=== PATIENT | male | born 1950 | race Caucasian/White ===

== ENCOUNTER 2019-09-09 17:02 | Emergency (ER) | payer MEDICARE, OTHER, SELFPAY ==
[2019-09-09 17:05] VITALS: BP 172/86; PULSE 88; RESP 16; O2SAT 97
[2019-09-09 17:11] VITALS: BP 172/86; PULSE 94; RESP 16; TEMP 38.1; O2SAT 100; BMI 35.9
[2019-09-09 17:30] VITALS: BP 167/73; PULSE 94; O2SAT 97
[2019-09-09] MEDS: SODIUM CHLORIDE 0.9% 1,000 ML 500 ML IV (17:31)
[2019-09-09 17:33] LABS: Add Manual Diff / Slide Review NO; Basophils Absolute Auto 0 /uL (0-100); Basophils Percent Auto 0.5 % (0-2); Eosinophils Absolute Auto 0 /uL (0-450); Eosinophils Percent Auto 0.1 % (2-4); Hematocrit 50.2 % (41-53); Hemoglobin 17.2 g/dL (13.5-17.5); Lymphocytes Absolute Auto 300 /uL (1100-4500); Lymphocytes Percent Auto 4.1 % (25-40); Mean Corpuscular HGB Conc 34.3 % (30-36); Mean Corpuscular Hemoglobin 31.7 PG (26-34); Mean Corpuscular Volume 92.7 fL (80-100); Monocytes Absolute Auto 200 /uL (0-900); Neutrophils Absolute Auto 6500 /uL (1500-7000); Neutrophils Percent Auto 92.3 % (50-75); Platelet Count 106 X10^3/uL (150-400); Red Blood Cell Count 5.42 X10^6/uL (4.5-5.9); Red Cell Distribution Width 14.1 % (11.6-14.8)
[2019-09-09 17:43] LABS: Lipase 40 U/L (23-300)
--- NOTE | 2019-09-09 17:47 | ED.NAVMDI ---
HPI - Nausea/Vomiting/Diarrhea <Timmy BRADFORD Fernandes - Last Filed: 09/09/19 19:43> General Chief complaint: Nausea/Vomiting/Diarrhea Stated complaint: vomiting and diarrhea all day Time Seen by Provider: 09/09/19 17:12 Source: patient Mode of arrival: Ambulatory Limitations: no limitations History of Present Illness HPI Narrative: This is a pleasant 68-year-old male, nonsmoker, who presents to ED with nausea, vomiting x1, 5-6 episodes of nonbloody but odorous diarrhea which started this morning. Patient reports he is not feeling well, denies fever or abdominal pain. Patient states he has been taking Amoxillinc twice a day for cellulitis on lower limbs and needs to be this medication forever. Patient reports small area of medial aspect above right ankle and denies pain, warmth, drainage, swelling. He has been using Hibiclens as needed once to twice a week as needed and uses good, gentle mode stridor on affected area. Patient denies chest pain, dyspnea, dizziness with standing from sitting but rather dizzy while he was sitting on a chair. The patient denies myalgia or arthralgia. Patient states has been able to hydrate himself with 4-5 bottles of 16 oz water. Patient reports had too much of deviled eggs 2-3 days ago and ate out at [employer] yesterday. Patient reports he has been having belching with sulfa smell like boiled eggs. The patient denies recent foreign travel. Related Data Home Medications Medication Instructions Recorded Confirmed AMLODIPINE BESYLATE (NORVASC) 10 mg PO QDAY #0 11/19/10 ASPIRIN CHEW - 81 mg PO Q DAY #0 11/19/10 (ASPIRIN) Benazepril Hydrochloride (Lotensin) 20 mg PO BID #0 11/19/10 CARVEDILOL (Coreg) 25 mg PO BID #0 11/19/10 MULTIVITAMIN (Multivitamin 1 tab PO Q DAY #0 11/19/10 -) [ECHINACEA] #0 04/01/11 [GLUCOSAMINE] 1,000 mg PO BID #0 04/01/11 [SALMON OIL CAPS] 1,000 PO Q DAY #0 04/01/11 furosemide [Lasix] 20 mg PO QDAY #0 07/06/16 Previous Rx's Medication Instructions Recorded sulfacetamide sodium [Bleph-10] 15 ml OP Q4HWA 5 Days #0 11/04/17 ondansetron 4 mg PO BID-TID PRN #7 tab 09/09/19 Allergies Allergy/AdvReac Type Severity Reaction Status Date / Time No Known Drug Allergies Allergy Verified 09/09/19 17:13 Review of Systems <BRADFORD Noyola - Last Filed: 09/09/19 19:43> Review of Systems Narrative: General: Denies fever, chills, fatigue, malaise, sweats. HEENT: Denies sinus pain, ear pain, sore throat, difficulty swallowing, dizziness. Respiratory: Denies dyspnea, cough, wheezing, hemoptysis, sputum. Cardiovascular: Denies chest pain, palpitations, orthopnea, edema. Gastrointestinal: See HPI : Denies dysuria, frequency, incontinence, hematuria, urinary retention. Musculoskeletal: Denies weakness, joint pain or bony pain. Skin: Denies rash, skin lesions, or other. Neurologic: Denies weakness, headache, numbness, change in speech, confusion, seizures, incoordination. Psychiatric: No concerning psychosocial issues. 12-point review of systems is negative except for those stated above. 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) HTN (hypertension), benign (Chronic) Hyperlipemia, mixed (Chronic) Hypertension (Acute) Obstructive sleep apnea of adult (Chronic ~2007) Osteoarthritis (Chronic) Primary thrombocytopenia (Chronic) Tinnitus (Chronic) Social History (Updated 09/09/19 @ 17:56 by BRADFORD Noyola) marital status: details: Sita, of 45 years, 04/28/2017 number of children: 2 household members: none lives independently: Yes Smoking Status: Never smoker substance use type: marijuana alcohol intake frequency: 3 or more drinks per day Substance Use Type: marijuana Exam <BRADFORD Noyola - Last Filed: 09/09/19 19:43> Narrative Exam Narrative: GEN: Alert, oriented x 3, well appearing and nourished, and in no acute distress. Head: Normal cephalic, atraumatic. No scalp or temporal tenderness, palpable mass or rash. EYES: Pupils are equal, round, and reactive to light and accommodation. Extraocular muscles are intact bilaterally. There is no subconjunctival hemorrhage, exudate and sclera non-icteric. ENT: Bilateral auditory canals and tympanic membranes clear. Hearing grossly intact. Nose without bleeding, purulent discharge or deviation. Facial sinuses nontender to palpate. Mucous membrane moist, no mucosal lesion. Throat without erythema, tonsillar hypertrophy or exudate. Uvula in midline, airway patent. Neck: Trachea in midline. No JVD, non-tender without lymphadenopathy. No masses or thyroid megaly. Supple, non-tender and no meningeal signs. CARDIAC: Normal regular rate and rhythm without murmurs, gallops, or rubs. No chest wall tenderness. No peripheral edema, cyanosis or pallor. Capillary refill is less than 2 seconds. RESPIRATORY: Lungs are clear to auscultate bilaterally. No cough, wheezes, rales, or rhonchi. No stridor, respiratory distress, increase work of breathing, or accessary muscle used. ABD: Abdomen soft, mild tender to palpate in L quadrants. No guarding or rebound tenderness to palpate. Bowel sounds are normal in all 4 quadrants. There is no palpable masses or organomegaly. EXT: Full painless ROM of all extremities with no loss of sensation, strength, effusion or edema. SKIN: Small erythema tests area in medial aspect above ankle in right lower limb without warmth or swelling noted. Warm, dry, normal color for patient. No erythema, lesions or rash over visible areas. BACK: Nontender without deformity or crepitance. No flank tenderness. NEUROLOGICAL: Alert and oriented to place, time and person. Sensation and motor function intact bilaterally. No facial droops, dysphasia. PSYCHIATRIC: Good judgement and reason, without hallucinations, abnormal affect or abnormal behaviors during the examination. Initial Vital Signs Initial Vital Signs: Vital Signs Pulse Rate 88 09/09/19 17:05 Respiratory Rate 16 09/09/19 17:05 Blood Pressure 172/86 H 09/09/19 17:05 Pulse Oximetry 97 09/09/19 17:05 <Kevin Rice, DO - Last Filed: 09/10/19 03:25> Initial Vital Signs Initial Vital Signs: Vital Signs Pulse Rate 88 09/09/19 17:05 Respiratory Rate 16 09/09/19 17:05 Blood Pressure 172/86 H 09/09/19 17:05 Pulse Oximetry 97 09/09/19 17:05 Scores <Timmy CLIFTON FernandesP - Last Filed: 09/09/19 19:43> GCS Rahul coma scale eye opening: Spontaneous Rahul coma scale verbal response: Orientated Rahul coma scale motor response: Obey commands Rahul coma scale total score: 15 Course <[facility] - Last Filed: 09/09/19 19:43> Orders Ordered: Discontinued Medications Sodium Chloride (Normal Saline 0.9%) 1,000 mls @ 1,000 mls/hr IV BOLUS ONE Stop: 09/09/19 18:22 Last Infusion: 09/09/19 18:30 Dose: 150 mls/hr Documented by: Admin: 09/09/19 17:31 Dose: 500 mls/hr Documented by: GRECIA Ondansetron HCl (Zofran) 4 mg IV NOW ONE Stop: 09/09/19 17:24 Last Admin: 09/09/19 17:49 Dose: 4 mg Documented by: GRECIA Vital Signs Vital signs: Vital Signs - 8 hr 09/09/19 19:57 Temperature 99.2 F <Kevin Rice DO - Last Filed: 09/10/19 03:25> Orders Ordered: Discontinued Medications Sodium Chloride (Normal Saline 0.9%) 1,000 mls @ 1,000 mls/hr IV BOLUS ONE Stop: 09/09/19 18:22 Last Infusion: 09/09/19 18:30 Dose: 150 mls/hr Documented by: Admin: 09/09/19 17:31 Dose: 500 mls/hr Documented by: GRECIA Ondansetron HCl (Zofran) 4 mg IV NOW ONE Stop: 09/09/19 17:24 Last Admin: 09/09/19 17:49 Dose: 4 mg Documented by: GRECIA Vital Signs Vital signs: Vital Signs - 8 hr 09/09/19 19:57 Temperature 99.2 F MDM - Nausea/Vomiting/Diarrhea <[facility] - Last Filed: 09/09/19 19:43> Differential Diagnosis Differential diagnosis: Likely food poisoning, gastroenteritis, clostridium difficile infection and other (Viral illness, diverticulitis) Medical Records Attestation: I reviewed the patient's medical records. Lab Data Attestation: I reviewed the patient's lab results. Result diagrams: 09/09/19 17:20 09/09/19 17:20 Labs: Lab Results 09/09/19 09/09/19 09/09/19 Range/Units 17:20 17:20 17:20 WBC 7.0 (4.5-11.0) X10^3/uL RBC 5.42 (4.5-5.9) X10^6/uL Hgb 17.2 (13.5-17.5) g/dL Hct 50.2 (41-53) % MCV 92.7 (80-100) fL MCH 31.7 (26-34) PG MCHC 34.3 (30-36) % RDW 14.1 (11.6-14.8) % Plt Count 106 L (150-400) X10^3/uL Neut % (Auto) 92.3 H (50-75) % Lymph % (Auto) 4.1 L (25-40) % [place] % (Auto) 3.0 (3-14) % Eos % (Auto) 0.1 L (2-4) % Baso % (Auto) 0.5 (0-2) % Neut # (Auto) 6500 (9688-9856) /uL Lymph # (Auto) 300 L (7974-5653) /uL [place] # (Auto) 200 (0-900) /uL Eos # (Auto) 0 (0-450) /uL Baso # (Auto) 0 (0-100) /uL Sodium 141 (137-145) mmol/L Potassium 3.8 (3.4-5.1) mmol/L Chloride 104 (98-107) mmol/L Carbon Dioxide 30 (22-32) mmol/L BUN 22 H (9-20) mg/dL Creatinine 1.00 (0.66-1.25) mg/dL Estimated GFR > 60.0 (>60) mL/min BUN/Creatinine Ratio 22.0 (6-22) Glucose 120 H (80-110) mg/dL Calcium 8.9 (8.4-10.2) mg/dL Total Bilirubin 1.1 (0.2-1.3) mg/dL AST 32 (17-59) IU/L ALT 40 (<50) IU/L Alkaline Phosphatase 64 (38-126) U/L B-Natriuretic Peptide (<100) Total Protein 6.8 (6.3-8.2) g/dL Albumin 4.2 (3.5-5.0) g/dL Globulin 2.6 (1.7-4.1) g/dL Albumin/Globulin Ratio 1.6 (1.0-2.8) Lipase (23-300) U/L Procalcitonin (<0.5) ng/mL Influenza A (RT-PCR) Flu a negative (NEGATIVE) Influenza B (RT-PCR) Flu b negative (NEGATIVE) 09/09/19 09/09/19 09/09/19 Range/Units 17:20 17:34 17:34 WBC (4.5-11.0) X10^3/uL RBC (4.5-5.9) X10^6/uL Hgb (13.5-17.5) g/dL Hct (41-53) % MCV (80-100) fL MCH (26-34) PG MCHC (30-36) % RDW (11.6-14.8) % Plt Count (150-400) X10^3/uL Neut % (Auto) (50-75) % Lymph % (Auto) (25-40) % [place] % (Auto) (3-14) % Eos % (Auto) (2-4) % Baso % (Auto) (0-2) % Neut # (Auto) (6152-2495) /uL Lymph # (Auto) (6276-0795) /uL [place] # (Auto) (0-900) /uL Eos # (Auto) (0-450) /uL Baso # (Auto) (0-100) /uL Sodium (137-145) mmol/L Potassium (3.4-5.1) mmol/L Chloride (98-107) mmol/L Carbon Dioxide (22-32) mmol/L BUN (9-20) mg/dL Creatinine (0.66-1.25) mg/dL Estimated GFR (>60) mL/min BUN/Creatinine Ratio (6-22) Glucose (80-110) mg/dL Calcium (8.4-10.2) mg/dL Total Bilirubin (0.2-1.3) mg/dL AST (17-59) IU/L ALT (<50) IU/L Alkaline Phosphatase (38-126) U/L B-Natriuretic Peptide < 100 (<100) Total Protein (6.3-8.2) g/dL Albumin (3.5-5.0) g/dL Globulin (1.7-4.1) g/dL Albumin/Globulin Ratio (1.0-2.8) Lipase 40 (23-300) U/L Procalcitonin 0.24 (<0.5) ng/mL Influenza A (RT-PCR) (NEGATIVE) Influenza B (RT-PCR) (NEGATIVE) MDM Narrative Medical decision making narrative: This is a 68-year-old male who presents to ED with vomiting times once and several loose stool which started this morning. Patient has a history of cellulitis and he has been on antibiotic medication amoxicillin twice a day dose for prolonged time and will have to continue with this treatment. Although patient denied fever and abdominal pain, patient had temperature of 100.5 upon arrival and very mild tenderness to palpate in left quadrant during physical exam. WBC is unremarkable with elevated of 92.3% and chronically mildly low in platelet counts of 106 today. Lymph count and Eosinophils were decreased. Normal electrolytes, kidney function, with mildly elevated BUN of 22. Flu swab was negative. Patient's symptoms is likely related to viral illness, gastroenteritis, food poisoning from at eggs. Patient's temperature was improved before dc to home. Patient was not able to provide stool sample to test C-Diff of and advised to follow up with PCP when patient is able to collect sample with continued diarrhea, abdominal pain. Also diverticulitis was considered but today's lab test were unremarkable with benign physical exam. Patient was hydrated gently with normal saline due to history of Lasix use. BNP was negative. Procalcitonin was negative. Patient states feeling better prior discharging to home. Return precautions were discussed with the patient and patient advised to hydrate with clear liquid at home. Zofran Rx has been provided for patient. Patient agrees with the treatment plan and verbalized understanding. <Kevin Rice DO - Last Filed: 09/10/19 03:25> Lab Data Labs: Lab Results 09/09/19 09/09/19 09/09/19 Range/Units 17:20 17:20 17:20 WBC 7.0 (4.5-11.0) X10^3/uL RBC 5.42 (4.5-5.9) X10^6/uL Hgb 17.2 (13.5-17.5) g/dL Hct 50.2 (41-53) % MCV 92.7 (80-100) fL MCH 31.7 (26-34) PG MCHC 34.3 (30-36) % RDW 14.1 (11.6-14.8) % Plt Count 106 L (150-400) X10^3/uL Neut % (Auto) 92.3 H (50-75) % Lymph % (Auto) 4.1 L (25-40) % [place] % (Auto) 3.0 (3-14) % Eos % (Auto) 0.1 L (2-4) % Baso % (Auto) 0.5 (0-2) % Neut # (Auto) 6500 (8784-9241) /uL Lymph # (Auto) 300 L (9330-7669) /uL [place] # (Auto) 200 (0-900) /uL Eos # (Auto) 0 (0-450) /uL Baso # (Auto) 0 (0-100) /uL Sodium 141 (137-145) mmol/L Potassium 3.8 (3.4-5.1) mmol/L Chloride 104 (98-107) mmol/L Carbon Dioxide 30 (22-32) mmol/L BUN 22 H (9-20) mg/dL Creatinine 1.00 (0.66-1.25) mg/dL Estimated GFR > 60.0 (>60) mL/min BUN/Creatinine Ratio 22.0 (6-22) Glucose 120 H (80-110) mg/dL Calcium 8.9 (8.4-10.2) mg/dL Total Bilirubin 1.1 (0.2-1.3) mg/dL AST 32 (17-59) IU/L ALT 40 (<50) IU/L Alkaline Phosphatase 64 (38-126) U/L B-Natriuretic Peptide (<100) Total Protein 6.8 (6.3-8.2) g/dL Albumin 4.2 (3.5-5.0) g/dL Globulin 2.6 (1.7-4.1) g/dL Albumin/Globulin Ratio 1.6 (1.0-2.8) Lipase (23-300) U/L Procalcitonin (<0.5) ng/mL Influenza A (RT-PCR) Flu a negative (NEGATIVE) Influenza B (RT-PCR) Flu b negative (NEGATIVE) 09/09/19 09/09/19 09/09/19 Range/Units 17:20 17:34 17:34 WBC (4.5-11.0) X10^3/uL RBC (4.5-5.9) X10^6/uL Hgb (13.5-17.5) g/dL Hct (41-53) % MCV (80-100) fL MCH (26-34) PG MCHC (30-36) % RDW (11.6-14.8) % Plt Count (150-400) X10^3/uL Neut % (Auto) (50-75) % Lymph % (Auto) (25-40) % [place] % (Auto) (3-14) % Eos % (Auto) (2-4) % Baso % (Auto) (0-2) % Neut # (Auto) (7925-9140) /uL Lymph # (Auto) (1460-3231) /uL [place] # (Auto) (0-900) /uL Eos # (Auto) (0-450) /uL Baso # (Auto) (0-100) /uL Sodium (137-145) mmol/L Potassium (3.4-5.1) mmol/L Chloride (98-107) mmol/L Carbon Dioxide (22-32) mmol/L BUN (9-20) mg/dL Creatinine (0.66-1.25) mg/dL Estimated GFR (>60) mL/min BUN/Creatinine Ratio (6-22) Glucose (80-110) mg/dL Calcium (8.4-10.2) mg/dL Total Bilirubin (0.2-1.3) mg/dL AST (17-59) IU/L ALT (<50) IU/L Alkaline Phosphatase (38-126) U/L B-Natriuretic Peptide < 100 (<100) Total Protein (6.3-8.2) g/dL Albumin (3.5-5.0) g/dL Globulin (1.7-4.1) g/dL Albumin/Globulin Ratio (1.0-2.8) Lipase 40 (23-300) U/L Procalcitonin 0.24 (<0.5) ng/mL Influenza A (RT-PCR) (NEGATIVE) Influenza B (RT-PCR) (NEGATIVE) Discharge Plan Departure Patient Disposition: Home Clinical Impression: Nausea vomiting and diarrhea Discharge Date/Time: 09/09/19 19:50 Instructions: Diarrhea, DI for Vomiting -- Adult Activity Restrictions/Additional Instructions: You have been diagnosed with [nausea, vomiting, diarrhea. Today's blood tests were unremarkable but signs of mild dehydration. You were hydrated with IV fluid normal saline and was medicated with IV Zofran for nausea. You're able to tolerate ice chips without vomiting. Your temperature has improved. No significant indications for infection.]. What to do: *Take your medications as directed. Please use Zofran only as needed for nausea or vomiting so you can hydrate after the medication. Please take small sips of clear liquid frequently to hydrate herself. If you continue to have loose stool, please collect stool sample and contact your physician's office for C diff infection testing since you have been on antibiotic medication for a prolonged time. You were unable to provide urine sample and stool sample while in ED to test this today. *Follow up with your primary care provider in 2-3 days, call for an appointment. Let them know you were seen in the ED and that we asked you to be seen in follow up. *Return to ED if you have any new, worsening, or concerning symptoms, such as [abdominal pain, fever, unable to tolerate fluids, chest pain, breathing difficulty, or any acute concerns]. Prescriptions: New ondansetron 4 mg tablet,disintegrating 4 mg PO BID-TID PRN (Reason: nausea and vomiting) Qty: 7 RF: 0 No Action AMLODIPINE BESYLATE (NORVASC) 10 mg PO QDAY Qty: 0 RF: 0 Benazepril Hydrochloride (Lotensin) 20 mg PO BID Qty: 0 RF: 0 CARVEDILOL (Coreg) 25 mg PO BID Qty: 0 RF: 0 MULTIVITAMIN (Multivitamin -) 1 tab PO Q DAY Qty: 0 RF: 0 ASPIRIN CHEW - (ASPIRIN) 81 mg PO Q DAY Qty: 0 RF: 0 [ECHINACEA] Qty: 0 RF: 0 [GLUCOSAMINE] 1,000 mg PO BID Qty: 0 RF: 0 [SALMON OIL CAPS] 1,000 PO Q DAY Qty: 0 RF: 0 furosemide [Lasix] 20 MG tablet 20 mg PO QDAY Qty: 0 RF: 0 sulfacetamide sodium [Bleph-10] 5 ML drops 15 ml OP Q4HWA 5 Days Qty: 0 RF: 0 Referrals: Kamini Velazquez PA-C [Primary Care Provider] -
[2019-09-09] MEDS: ONDANSETRON 4 MG/2 ML INJ IV (17:49)
[2019-09-09 17:51] LABS: Alanine Aminotransferase 40 IU/L (<50); Albumin 4.2 g/dL (3.5-5.0); Albumin Globulin Ratio 1.6 (1.0-2.8); Alkaline Phosphatase 64 U/L (38-126); Aspartate Aminotransferase 32 IU/L (17-59); Bilirubin Total 1.1 mg/dL (0.2-1.3); Blood Urea Nitrogen 22 mg/dL (9-20); Calcium 8.9 mg/dL (8.4-10.2); Carbon Dioxide 30 mmol/L (22-32); Chloride 104 mmol/L (98-107); Estimated Glomerular Filt Rate > 60.0 mL/min (>60); Globulin 2.6 g/dL (1.7-4.1); Glucose 120 mg/dL (80-110); HEMOLYSIS < 15 (0-50); Potassium 3.8 mmol/L (3.4-5.1); Sodium 141 mmol/L (137-145); Total Protein 6.8 g/dL (6.3-8.2)
[2019-09-09 18:00] VITALS: BP 155/92; PULSE 88; RESP 16
[2019-09-09 18:05] LABS: Influenza A - CEPHEID Flu A NEGATIVE (NEGATIVE); Influenza B - CEPHEID Flu B NEGATIVE (NEGATIVE)
[2019-09-09 18:15] LABS: Procalcitonin 0.24 ng/mL (<0.5)
[2019-09-09 18:17] LABS: B Type Natriuretic Peptide < 100 (<100)
[2019-09-09 19:09] VITALS: BP 143/69; PULSE 80; RESP 18; O2SAT 98
[2019-09-09 19:57] VITALS: TEMP 37.3
== END 2019-09-09 19:50 | disposition home or self-care (01) ==
PROVIDERS: Emergency Provider Nurse Practitioner Family; PCP Physician Assistant
DX: R11.2 Nausea with vomiting, unspecified (principal); R19.7 Diarrhea, unspecified
CPT/HCPCS: 80053; 83690; 83880; 84145; 85025; 87502; 96361; 96374; 99284; J2405

== ENCOUNTER → 2019-10-09 19:07 | Outpatient (ROUT) | payer MEDICARE, OTHER, SELFPAY ==
[2019-10-09 19:14] LABS: Add Manual Diff / Slide Review NO; Basophils Absolute Auto 0 /uL (0-100); Basophils Percent Auto 0.6 % (0-2); Eosinophils Absolute Auto 100 /uL (0-450); Eosinophils Percent Auto 2.2 % (2-4); Hematocrit 47.2 % (41-53); Hemoglobin 16.2 g/dL (13.5-17.5); Lymphocytes Absolute Auto 1300 /uL (1100-4500); Lymphocytes Percent Auto 20.6 % (25-40); Mean Corpuscular HGB Conc 34.4 % (30-36); Mean Corpuscular Hemoglobin 31.8 PG (26-34); Mean Corpuscular Volume 92.5 fL (80-100); Monocytes Absolute Auto 400 /uL (0-900); Monocytes Percent Auto 7.3 % (3-14); Neutrophils Absolute Auto 4300 /uL (1500-7000); Neutrophils Percent Auto 69.3 % (50-75); Platelet Count 128 X10^3/uL (150-400); Red Cell Distribution Width 14.1 % (11.6-14.8); White Blood Cell Count 6.2 X10^3/uL (4.5-11.0)
[2019-10-09 19:34] LABS: Alanine Aminotransferase 43 IU/L (<50); Albumin 4.4 g/dL (3.5-5.0); Albumin Globulin Ratio 1.5 (1.0-2.8); Alkaline Phosphatase 83 U/L (38-126); Aspartate Aminotransferase 38 IU/L (17-59); BUN Creatinine Ratio 21.3 (6-22); Bilirubin Total 0.9 mg/dL (0.2-1.3); Blood Urea Nitrogen 17 mg/dL (9-20); Calcium 9.4 mg/dL (8.4-10.2); Carbon Dioxide 29 mmol/L (22-32); Chloride 104 mmol/L (98-107); Cholesterol 151 mg/dL (140-199); Estimated Glomerular Filt Rate > 60.0 mL/min (>60); Globulin 2.9 g/dL (1.7-4.1); Glucose 94 mg/dL (80-110); HDL Cholesterol 48 mg/dL (40-60); HEMOLYSIS 20 (0-50); LDL Cholesterol Calculated 84 mg/dL (<100); Potassium 3.9 mmol/L (3.4-5.1); Sodium 141 mmol/L (137-145); Total Protein 7.3 g/dL (6.3-8.2); Triglycerides 96 mg/dL (35-150)
== END ==
PROVIDERS: PCP Physician Assistant; Visit Provider Physician Assistant
DX: I10 Essential (primary) hypertension (principal); E78.5 Hyperlipidemia, unspecified
CPT/HCPCS: 80053; 80061; 85025

== ENCOUNTER 2021-01-04 12:40 | Emergency (ER) | payer MEDICARE, OTHER, SELFPAY ==
[2021-01-04 16:04] VITALS: BP 150/90; PULSE 62; RESP 16; O2SAT 100
[2021-01-04] MEDS: OFLOXACIN 0.3% OPHTH PREPACK 1 BOTTLE MISC (16:09)
--- NOTE | 2021-01-04 16:10 | PC.NURSE ---
defer to providers assessment
--- NOTE | 2021-01-04 17:35 | ED_ITS ---
HPI - Ear Problem General Chief complaint: Ear Stated complaint: Right Ear Blockage Time Seen by Provider: 01/04/21 14:15 Source: patient Mode of arrival: Ambulatory Limitations: no limitations History of Present Illness HPI Narrative: 70-year-old male former smoker with history of high blood pressure presents with a chief complaint of what he feels as if is a blockage in his right ear. He denies any head injury or difficulty swallowing. He has had no fever or chills nor difficulty swallowing. He denies any recent flights or scuba diving nor upper respiratory illness. He states that he has been buying some drops to put in his ear which have provided little relief. He did use a Q- tip a few days ago and states that maybe he has had some discharge but isn't sure exactly how much or when. MD Complaint: ear pain and decreased hearing Location: right ear Duration: constant Severity: moderate Exacerbating factors: nothing Discharge from ear: yes - bloody and yes - purulent Treatment prior to arrival: eardrops Related Data Home Medications Medication Instructions Recorded Confirmed AMLODIPINE BESYLATE (NORVASC) 10 mg PO QDAY #0 11/19/10 09/13/20 ASPIRIN CHEW - 81 mg PO Q DAY #0 11/19/10 09/13/20 (ASPIRIN) MULTIVITAMIN (Multivitamin 1 tab PO Q DAY #0 11/19/10 -) [ECHINACEA] #0 04/01/11 09/13/20 [GLUCOSAMINE] 1,000 mg PO BID #0 04/01/11 09/13/20 [SALMON OIL CAPS] 1,000 PO Q DAY #0 04/01/11 09/13/20 CARVEDILOL (Coreg) 12.5 mg PO BID #0 09/13/20 carvedilol 25 mg tablet 12.5 mg PO BID tab 09/13/20 09/13/20 lisinopril 20 mg tablet 20 mg PO DAILY 09/13/20 09/13/20 simvastatin 20 mg tablet 10 mg PO QPM tab 09/13/20 09/13/20 Previous Rx's Medication Instructions Recorded sulfacetamide sodium [Bleph-10] 15 ml OP Q4HWA 5 Days #0 11/04/17 Allergies Allergy/AdvReac Type Severity Reaction Status Date / Time No Known Drug Allergies Allergy Verified 01/04/21 12:52 Review of Systems Constitutional Constitutional: Denies chills, Denies fatigue, Denies fever(s), Denies frequent falls, Denies lethargy and Denies weakness Eyes Eyes: Denies change in vision, Denies eye discharge, Denies irritation and Denies loss of vision ENT Ears, Nose, Mouth, and Throat: Denies change in voice, Denies dizziness, Denies neck pain, Denies sore throat and Denies throat swelling Comments: Ear pain, drainage and hearing loss from right ear Cardiovascular Cardiovascular: Denies chest pain, Denies irregular heart rhythm, Denies lightheadedness, Denies palpitations, Denies dyspnea, Denies dyspnea on exertion and Denies orthopnea Respiratory Respiratory: Denies cough, Denies dyspnea, Denies dyspnea on exertion and Denies wheezing Gastrointestinal Gastrointestinal: Denies abdominal pain, Denies change in bowel habits, Denies diarrhea, Denies nausea and Denies vomiting Musculoskeletal Musculoskeletal: Denies neck pain and Denies numbness Integumentary/Breasts Skin/Breast: Denies pruritus, Denies erythema, Denies rash and Denies wounds Neurologic Neurologic: Denies behavioral changes, Denies confusion, Denies dizziness, Denies frequent falls, Denies loss of vision, Denies numbness and Denies weakness Psychiatric Psychiatric: Denies anxiety, Denies behavioral changes, Denies confusion, Denies depression, Denies homicidal ideation and Denies suicidal ideation Endocrine Endocrine: Denies fatigue, Denies flushing and Denies palpitations Hematologic/Lymphatic Hematologic/Lymphatic: Denies easy bruising Allergic/Immunologic Allergic/Immunologic: Denies urticaria, Denies throat swelling and Denies wheezing Patient History Medical History Atopic dermatitis Chronic recurrent streptococcal erysipelas High frequency hearing loss HTN (hypertension), benign Hyperlipemia, mixed Hypertension Obesity (BMI 30-39.9) Obstructive sleep apnea of adult (~2008) Osteoarthritis Primary thrombocytopenia Tinnitus Social History marital status: details: Sita, of 45 years, 04/28/2017 number of children: 2 household members: none lives independently: Yes Smoking Status: Former smoker substance use type: marijuana Smoking Status: Former smoker alcohol intake frequency: 0-2 drinks per day Substance Use Type: marijuana Exam Narrative Exam Narrative: GEN: AOx3 and in mild distress EYES: Pupils are equal, round, and reactive to light and accommodation. Extraoccular muscles are intact bilaterally. There is no subconjunctival hemorrhage or exudate. ENT: Right tympanic membrane obscured by what appears to be cotton, no obvious swelling of the external auditory canal. A soft curette used and removes a portion of the cotton and there is purulence drainage and blood noted. It is becoming tender and I will refer to ENT for completion of this evaluation at their request. Left TM clear, normal landmarks CHEST: Lungs are clear to auscultation bilaterally and free of wheezes, rales, or rhonchi. Heart rate is regular rhythm, there are no murmurs, clicks, rubs, or gallops. There is no chest wall tenderness. ABD: Abdomen is soft and nontender. There is no guarding or rebound. Bowel sounds are normal in all 4 quadrants. There is no mass or organomegaly. EXT: Full painless ROM of all extremities with no loss of sensation or strength. SKIN: Warm, pink, and dry. No erythema or rash Initial Vital Signs Initial Vital Signs: Vital Signs Pulse Rate 62 01/04/21 16:04 Respiratory Rate 16 01/04/21 16:04 Blood Pressure 150/90 H 01/04/21 16:04 Pulse Oximetry 100 01/04/21 16:04 Course Orders Ordered: Discontinued Medications Ofloxacin (Ofloxacin 0.3% Ophth Prepack) 1 bottle MISC SEEINSTR ONE Stop: 01/04/21 15:51 Last Admin: 01/04/21 16:09 Dose: 5 drops Documented by: KAYE Vital Signs Vital signs: Vital Signs - 8 hr 01/04/21 16:04 Pulse Rate 62 Respiratory Rate 16 Blood Pressure 150/90 H Pulse Oximetry 100 Discharge Plan Departure Patient Disposition: Home Clinical Impression: Impacted cerumen of right ear Instructions: Cerumen Impaction Activity Restrictions/Additional Instructions: *You have been diagnosed with [cerumen impaction and likely foreign body in right external auditory canal with some signs of infection.] *What to do: *Take medications as directed: Please use the given drops in your right ear 5 drops twice daily *Follow up with [facility], call Wednesday for an appointment. Let them know you were seen in the Emergency Department and that we ask that you be seen in follow up *Return to ER if you should have any new, worsening or concerning symptoms, such as [pain, swelling, fever greater than 101 F, shaking chills or other bothersome symptoms] Prescriptions: No Action AMLODIPINE BESYLATE (NORVASC) 10 mg PO QDAY Qty: 0 RF: 0 MULTIVITAMIN (Multivitamin -) 1 tab PO Q DAY Qty: 0 RF: 0 ASPIRIN CHEW - (ASPIRIN) 81 mg PO Q DAY Qty: 0 RF: 0 [ECHINACEA] Qty: 0 RF: 0 [GLUCOSAMINE] 1,000 mg PO BID Qty: 0 RF: 0 [SALMON OIL CAPS] 1,000 PO Q DAY Qty: 0 RF: 0 sulfacetamide sodium [Bleph-10] 5 ML drops 15 ml OP Q4HWA 5 Days Qty: 0 RF: 0 CARVEDILOL (Coreg) 12.5 mg PO BID Qty: 0 RF: 0 lisinopril 20 mg tablet 20 mg PO DAILY RF: 0 carvedilol 25 mg tablet 12.5 mg PO BID RF: 0 simvastatin 20 mg tablet 10 mg PO QPM RF: 0 Referrals: Kamini Velazquez PA-C [Primary Care Provider] - Janes Yee MD [Physician] -
== END 2021-01-04 16:14 | disposition home or self-care (01) ==
PROVIDERS: Emergency Provider Emergency Medicine; PCP Physician Assistant
DX: H61.21 Impacted cerumen, right ear (principal)
CPT/HCPCS: 99281

== ENCOUNTER → 2021-01-21 14:44 | Outpatient (CLI) | payer MEDICARE, OTHER, SELFPAY ==
--- NOTE | 2021-01-21 | DI.US.S_ITS ---
PROCEDURE: US SCROTUM INDICATIONS: EDEMA TECHNIQUE: Real-time scanning was performed of the scrotum and testicles, with image documentation. Color and pulse Doppler interrogation was performed of both testicles. COMPARISON: None. FINDINGS: Right: Testicle is normal in size at 2.7 x 3.0 x 4.3 cm, and homogenous in echotexture. Epididymis is normal in overall size and morphology. Large hydrocele containing low-level internal echoes suggesting spermatocele or debri in the hydrocele s. No varicocele Overlying scrotal skin is normal in thickness. Left: Testicle is normal in size at 2.4 x 3.0 x 4.0 cm, and homogeneous in echotexture. Epididymis is normal in overall size and morphology. Large hydrocele containing low level echoes suggesting spermatocele or debris in the hydrocele Overlying scrotal skin is normal in thickness. Doppler: Color and pulse Doppler demonstrate normal and symmetric arterial flow in both testicles. IMPRESSION: Large bilateral hydroceles with low-level internal echoes suggesting these may represent spermatoceles or debris-containing hydroceles. Dictated by: Praful Alfaro M.D. on 01/22/2021 at 10:14 Approved by: Praful Alfaro M.D. on 01/22/2021 at 10:16
== END ==
PROVIDERS: PCP Physician Assistant; Referring Provider Urology; Visit Provider Urology
DX: N50.89 Other specified disorders of the male genital organs (principal); N43.3 Hydrocele, unspecified
CPT/HCPCS: 76870

== ENCOUNTER → 2021-02-04 09:28 | Outpatient (CLI) | payer MEDICARE, OTHER, SELFPAY | PROVIDERS: PCP Physician Assistant; Referring Provider Orthopaedic Surgery; Visit Provider Orthopaedic Surgery | DX: Z01.818 Encounter for other preprocedural examination (principal) | CPT/HCPCS: 93005 ==

== ENCOUNTER → 2021-09-23 07:40 | Outpatient (CLI) | payer MEDICARE, OTHER, SELFPAY ==
--- NOTE | 2021-09-23 | DI.US.S_ITS ---
PROCEDURE: US ABD AORTA ANEURYSM SCREEN INDICATIONS: SCREENING TECHNIQUE: Real time scanning was performed of the aorta and iliac arteries, with image documentation. COMPARISON: [facility], CT, KIDNEY/ URETER/BLADDER, 11/05/2010, 13:50. [facility], US, ABD AORTA ANEURYSM SCREENING, 04/17/2016, 9:56. FINDINGS: Aorta: The proximal aorta is not well seen, secondary gas. Mid-aorta measures 2 cm. Distal aortic diameter is 2 cm. Iliac arteries: Right common iliac artery measures 1.9 cm. Left common iliac artery measures 1.5 cm. IMPRESSION: Negative for aneurysm. Dictated by: Steven Hebert M.D. on 09/23/2021 at 7:58 Approved by: Steven Hebert M.D. on 09/23/2021 at 7:59
== END ==
PROVIDERS: PCP Physician Assistant; Referring Provider Physician Assistant; Visit Provider Physician Assistant
DX: Z13.6 Encounter for screening for cardiovascular disorders (principal)
CPT/HCPCS: 76706

== ENCOUNTER → 2021-11-25 14:32 | Outpatient (CLI) | payer MEDICARE, OTHER, SELFPAY ==
[2021-11-25 15:35] LABS: Add Manual Diff / Slide Review NO; Basophils Absolute Auto 0 /uL (0-100); Basophils Percent Auto 0.5 % (0-2); Eosinophils Absolute Auto 100 /uL (0-450); Eosinophils Percent Auto 1.1 % (2-4); Hematocrit 42.5 % (41-53); Hemoglobin 14.8 g/dL (13.5-17.5); Lymphocytes Absolute Auto 900 /uL (1100-4500); Lymphocytes Percent Auto 16.7 % (25-40); Mean Corpuscular HGB Conc 34.9 % (30-36); Mean Corpuscular Hemoglobin 31.9 PG (26-34); Mean Corpuscular Volume 91.4 fL (80-100); Monocytes Absolute Auto 400 /uL (0-900); Monocytes Percent Auto 6.4 % (3-14); Neutrophils Absolute Auto 4300 /uL (1500-7000); Neutrophils Percent Auto 75.3 % (50-75); Platelet Count 125 X10^3/uL (150-400); Red Blood Cell Count 4.65 X10^6/uL (4.5-5.9); Red Cell Distribution Width 14.1 % (11.6-14.8); White Blood Cell Count 5.7 X10^3/uL (4.5-11.0)
[2021-11-25 15:48] LABS: Hemoglobin A1C% w Est Avg Glu 4.9 % (4.0-6.0)
[2021-11-25 16:18] LABS: BUN Creatinine Ratio 21.4 (6-22); Blood Urea Nitrogen 21 mg/dL (9-20); Calcium 9.4 mg/dL (8.4-10.2); Carbon Dioxide 28 mmol/L (22-32); Chloride 106 mmol/L (98-107); Estimated Glomerular Filt Rate > 60.0 mL/min (>60); Glucose 116 mg/dL (80-110); HEMOLYSIS < 15 (0-50); Sodium 141 mmol/L (137-145)
== END ==
PROVIDERS: PCP Physician Assistant; Referring Provider Orthopaedic Surgery; Visit Provider Orthopaedic Surgery
DX: Z01.818 Encounter for other preprocedural examination (principal); R73.9 Hyperglycemia, unspecified; M25.562 Pain in left knee; Z01.812 Encounter for preprocedural laboratory examination
CPT/HCPCS: 36415; 80048; 83036; 85025; 93005

== ENCOUNTER → 2021-12-09 10:14 | Outpatient (CLI) | payer MEDICARE, OTHER, SELFPAY ==
[2021-12-09 10:47] LABS: COVID19 -Nasal RAPID Negative (Negative)
== END ==
PROVIDERS: PCP Physician Assistant; Visit Provider Family Medicine Sleep Medicine
DX: Z20.822 Contact with and (suspected) exposure to COVID-19 (principal)
CPT/HCPCS: 87635; C9803

== ENCOUNTER 2021-12-11 10:44 | Day surgery (SDC) | payer MEDICARE, OTHER, SELFPAY ==
[2021-12-04 09:32] VITALS: BMI 30.2
[2021-12-11] VITALS (13 sets, daily range): BP systolic 117–155; BP diastolic 61–91; PULSE 63–101; RESP 12–18; TEMP 36.4–37.3; O2SAT 91–97; BMI 30.2
[2021-12-11] MEDS: CELECOXIB 200 MG CAPSULE PO (11:00)
[2021-12-11] MEDS: PREGABALIN 75 MG CAPSULE PO (11:01)
[2021-12-11] MEDS: ACETAMINOPHEN 325 MG TABLET 975 MG PO (11:01)
[2021-12-11] MEDS: LACTATED RINGERS 1,000 ML 42 ML IV ×3 (11:08→15:30)
--- NOTE | 2021-12-11 11:59 | PM.PREOP ---
Pre-operative Note COVID-19 COVID-19 status: Negative Result date/Date tested (Pos, Neg/Pending): 12/09/21 Interval Note History & Physical reviewed/Exam performed by Physician: Yes Changes to H&P: No
--- NOTE | 2021-12-11 12:00 | DI.RAD.S_ITS ---
PROCEDURE: XR KNEE LT 1TO2V INDICATIONS: LEFT TOTAL KNEE TECHNIQUE: 2 view(s) of the knee acquired. COMPARISON: [facility], , KNEE 3V RIGHT, 12/07/2013, 14:52. FINDINGS: Bones: Patient is status post knee joint arthroplasty. Hardware components are in expected positions. Visualized bony structures are intact. Soft tissues: Overlying postoperative changes are noted. IMPRESSION: Expected postsurgical change. Dictated by: Andrez Flores M.D. on 12/11/2021 at 16:14 Approved by: Andrez Flores M.D. on 12/11/2021 at 16:14
--- NOTE | 2021-12-11 12:10 | P.OP_ITS ---
Operative Date/Time/Diagnoses Date of procedure: 12/11/21 Time of procedure: 15:00 Pre-op diagnosis: Left knee osteoarthritis Post-op diagnosis: same Procedure & Clinicians Procedure: Left total knee replacement Same procedure as scheduled: Yes Indications: The patient has had progressively worsening left knee pain with radiographic changes consistent with arthritis. Non-operative management has failed and the patient has requested total knee replacement. The risks, benefits and alternatives to surgery were discussed with the patient prior to proceeding. Risks discussed included, but were not limited to, failure to relieve pain, stiffness, infection, nerve damage, deep venous thrombosis, pulmonary embolism, stroke, coma, heart attack, permanent paralysis and , as well as the potential need for eventual revision of the prosthetic. Surgeon: Arian Gonzalez Veneer Stock Grader: Idalia Mac Click Yes if Unassisted: No Anesthesia Type: General, Spinal and Local Operative Notes Findings: Severe tricompartmental osteoarthritis, worst in the medial compartment. Closure Type: primary Specimen(s): none sent Prosthetic devices, grafts, tissues, transplants, or devices: Implants used in this procedure were manufactured by the [employer] and [employer] and included the BCS II Journey total knee replacement with a size 8 cobalt chromium femur, size 8 non porous tibial base plate, a 9 mm cross-linked polyethylene tibial insert and a 41 mm oval Marlyn II patella. Applied: implant(s) Estimated Blood Loss (mL): 25 Blood products transfused: none Tourniquet time (min): 56 Procedure in detail: The patient was seen in the pre-operative area, where the left knee was identified as the operative site and this was marked with my initials. The patient received pre-operative antibiotics, and was taken to the operating room and placed on the operative table in the supine position. After satisfactory anesthesia, a multimedia coordinator out was performed. The left leg was encircled with a tourniquet about the proximal thigh, and the leg was prepared from the toes to the tourniquet with ChloroPrep in the usual fashion and draped through sterile drapes. The leg was elevated and exsanguinated with Eschmark bandage and the tourniquet inflated to 250 mmHg pressure. The knee was approached through an approximately 18 cm incision centered over the patella and carried into the knee through a medial parapatellar arthrotomy. The anterior osteophytes and soft tissues were removed. The rotational landmarks of Burlington's line and the transepicondylar axis were marked on the femur with electrocautery, and intramedullary guide holes for the femur and tibia were created. The distal femoral cut was made in 6 degrees of valgus using the intramedullary guide at the +2 cut setting due to a flexion contracture. The proximal tibial cut was then made using the intramedullary guide, taking 9 mm of bone off the less involved side. The extension gap was checked and the rotation of the femoral component confirmed with the gap balancing blocks. The anterior, posterior and chamfer cuts were then made. The posterior osteophytes and soft tissues were then removed. The posterior capsule was injected with part of a mixture of 60 ml 0.25% Marcaine mixed with 20 ml Exparel and 4 mg of morphine for post-operative pain control. The remainder of this mixture was injected into the capsule and subcutaneous tissues during cement curing. The tibia was prepared with the rotation set by an extra medullary guide. Trial tibial and femoral components were then placed and the intercondylar notch cut through the femoral trial. Range of motion was 0-135 degrees, with good stability throughout the range. The patella was then cut to accommodate the patellar prosthetic. There was no need for a lateral release. The trials were then removed, and the femoral hole plugged with a bone plug. The bone was prepared with pulsatile lavage, and dried with a sponge. Cement was applied and the final prosthetics placed. Excess cement was removed during and after cement curing. After confirming there was no extruded cement posteriorly, the final tibial insert was placed. The knee was copiously irrigated and the tourniquet deflated. Hemostasis was obtained. The capsule was closed with interrupted # 2 polyester sutures. The subcutaneous layer was closed with 3-0 Vicryl, and the skin with a running 3-0 V-Lock suture and Dermabond. An Aquacel Ag dressing was applied and the patient was taken to recovery having tolerated the procedure well. Post-operative Condition: stable Disposition: PACU Plan for aftercare: The patient will be maintained on a standard total knee replacement protocol with weight bearing as tolerated. The patient will receive aspirin and sequential compression devices for DVT prophylaxis. The patient will be discharged home when safe for the home environment.
[2021-12-11] MEDS: CEFAZOLIN 2 GM/20 ML SYRINGE IV (13:33)
[2021-12-11] MEDS: TRANEXAMIC ACID 1,000 MG VIAL 1000 MG INJ ×2 (13:34→14:44)
--- NOTE | 2021-12-11 13:56 | SUR.OPER ---
Supine on padded OR bed. Pillow under head, arms secured on padded armboards <90 degree abduction. Safety belt across torso. Non-operative leg secured with tape over blanket over lower leg. Operative leg secured in DeMayo/Daniele/Nathe positioner. Foam padded brace at thigh of operative leg.
[2021-12-11] MEDS: BUPIVACAINE 0.25% (PF) 60 ML, EPINEPHrine 0.3 MG INJ (14:02)
[2021-12-11] MEDS: MORPHINE 4 MG/ML INJ INJ (14:03)
[2021-12-11] MEDS: BUPIVACAINE LIPOSOME 266 MG/20 ML VIAL INJ (14:35)
--- NOTE | 2021-12-11 16:13 | SUR.PHASEI ---
Pt transported to the floor by RN, bedside report given, CMS unchanged
--- NOTE | 2021-12-11 16:26 | PC.NURSE ---
Day shift: Pt on unit from PACU at approx 1615. He is A&Ox4. VS WNL. RA 98%. Denies any pain or nausea. Tolerating SCD's. Agrees to not get OOB w/o help from staff. Friend in room for support. CMS ok and PPP. CHAO and Aquacel CDI. Oriented to room and call light. Call light in reach. Will continue post-op plan of care.
[2021-12-11] MEDS: LACTATED RINGERS 1,000 ML 100 ML IV (16:57)
[2021-12-11] MEDS: ATORVASTATIN 20 MG TABLET 10 MG PO (17:02)
[2021-12-11] MEDS: IBUPROFEN 400 MG TABLET PO ×2 (17:03→21:07)
[2021-12-11] MEDS: AMLODIPINE 5 MG TABLET 10 MG PO (17:04)
[2021-12-11] MEDS: OXYCODONE IR 5 MG TABLET PO (17:12)
[2021-12-11] MEDS: ACETAMINOPHEN 325 MG TABLET 650 MG PO (21:07)
[2021-12-11] MEDS: DOCUSATE 100 MG CAPSULE PO (21:07)
[2021-12-11] MEDS: carvediloL 12.5 MG TABLET PO (21:08)
[2021-12-11] MEDS: AMOXICILLIN 250 MG CAPSULE 500 MG PO (21:08)
[2021-12-11] MEDS: ASPIRIN EC 81 MG TABLET PO (21:08)
[2021-12-12] VITALS: BP 124/68; PULSE 62; RESP 16; TEMP 36.6; O2SAT 94
[2021-12-12] MEDS: IBUPROFEN 400 MG TABLET PO ×4 (00:49→12:06)
[2021-12-12] MEDS: LACTATED RINGERS 1,000 ML 100 ML IV (03:56)
[2021-12-12 04:02] VITALS: BP 138/66; PULSE 63; RESP 16; TEMP 36.9; O2SAT 94
[2021-12-12 06:42] LABS: Hematocrit 39.1 % (41-53); Hemoglobin 13.4 g/dL (13.5-17.5)
--- NOTE | 2021-12-12 07:44 | PM.DS.1 ---
History of Present Illness History of Present Illness Date Patient Seen: 12/12/21 Time Patient Seen: 07:44 Chief complaint: OPB Narrative: The history and physical is contained in the chart in a previously completed note. Please refer to that note for this information. Discharge Providers Provider Date of admission: December 11, 2021 Discharge Date: 12/12/21 Primary care physician: Kamini Velazquez PA-C Consults: 12/11/21 15:56 Consult to Discharge Planning Routine Comment: Consult to Physical Therapy Evaluate & Treat Comment: Physician Instructions: postop TKA protocol Discharge provider: Arian Gonzalez MD Summary Hospital Course Discharge Diagnosis: 1. Left knee osteoarthritis 2. Mild post hemorrhagic anemia Hospital Course: The patient was admitted to the hospital and taken directly to the operating room on December 11, 2021. He underwent a left total knee replacement without complications. On postoperative day 1 he is comfortable and appears to be prepared for discharge home later today. He has a mild post hemorrhagic anemia which should not require specific treatment. Status at Discharge Cognitive/behavioral status at discharge: at baseline, oriented Functional status at discharge: uses cane/walker Overall status at discharge: patient is progressing back to baseline Time Spent with Patient Time spent: Less than 30 minutes Exam Vital Signs (past 8 hours): - 12/12/21 00:00 12/12/21 04:02 Temperature 97.8 F 98.4 F Pulse Rate 62 63 Respiratory Rate 16 16 Blood Pressure 124/68 138/66 Pulse Oximetry 94 94 Oxygen Delivery Method Room Air Oxygen Flow Rate 0 Narrative Exam Narrative: Left knee wound is dressed with no drainage on the bandage. Calf is soft. Light touch and motion are intact in the left lower extremity. 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 Obesity (BMI 30-39.9) Obstructive sleep apnea of adult (~2007) Osteoarthritis Primary thrombocytopenia Tinnitus Surgical History (Updated 12/04/21 @ 10:21 by Summer Mosher RN) History of cardiac cath (~2007) History of left knee surgery History of right knee surgery History of surgery History of vasectomy (1983) Hx of colonoscopy Hx of left inguinal hernia repair Hx of right inguinal hernia repair Social History marital status: details: Sita, of 45 years, 04/28/2017 number of children: 2 household members: significant other lives independently: Yes Smoking Status: Former smoker alcohol intake: current substance use type: marijuana Discharge Assessment & Plan Assessment and Plan Assessment: The patient is stable postoperative day 1 status post left total knee replacement. He has a mild post hemorrhagic anemia which will not require specific treatment. Plan of Treatment: At the time of this dictation the plan is for discharge home later this morning. He will follow up in my office in 10-14 days. Discharge prescriptions for oxycodone have been sent to the [facility]. He has also been instructed in the use of ibuprofen and Tylenol for additional pain control in the use of low-dose aspirin for DVT prophylaxis. Discharge Plan Discharge Plan Patient Disposition: Home Discharge orders & Medications Discharge Orders: Discharge (Order); Ordered 12/12/21 Ordered By: Arian Gonzalez Prescriptions: New acetaminophen 325 mg Tablet 650 mg PO TID 30 Days Qty: 180 0RF aspirin 81 mg Tablet,Delayed Release (Dr/Ec) 81 mg PO BID 42 Days Qty: 84 0RF ibuprofen 400 mg Tablet 400 mg PO Q4HR 30 Days 0RF oxycodone 5 mg Tablet 5 mg PO Q4H PRN (Reason: Pain, Moderate (4-6)) Qty: 40 0RF Continued amlodipine 10 mg Tablet 10 mg PO QPM Qty: 0 0RF echinacea 500 mg Capsule 760 mg PO BID Qty: 0 0RF Rx Instructions: administer with meals Glucosamine Complex-MSM Capsule 1 cap PO BID Qty: 0 0RF Ringwood Oil-1000 1,000-200 mg Capsule 1,000 cap PO BID Qty: 0 0RF amoxicillin 500 mg Tablet 500 mg PO BID 0RF lisinopril 20 mg tablet 40 mg PO DAILY 0RF carvedilol 25 mg tablet 12.5 mg PO BID 0RF Rx Instructions: must administer with a meal/food simvastatin 20 mg tablet 20 mg PO QPM 0RF Discontinued aspirin [Aspir-Low] 81 mg Tablet,Delayed Release (Dr/Ec) 81 mg PO DAILY Qty: 0 0RF Follow up/Referrals: Kamini Velazquez PA-C [Primary Care Provider] - Arian Gonzalez MD [Physician] - 2 Weeks Diet/Activity/Treatments Diet: Diet as Tolerated and Regular Activity: You may bear weight as tolerated on your left leg. Cold/Heat Therapy: You may apply ice to the left knee for 15 minutes every hour as needed for pain control. Skin/Wound/Dressing Care Report to your healthcare provider any signs of infection, such as:: chills, fever, night sweats, increased pain, unusual drainage and unusual redness Dressing: You may remove the Alex wrap 3 days after surgery and shower normally with the deeper dressing in place. Leave the deeper dressing in place until follow-up in the office. If the central strip of the deeper dressing becomes saturated with either water or blood, please call the office to have it evaluated. Visit Report/Discharge Packet Instructions: DI for Knee Replacement Stand Alone Forms: Surgery Discharge Discharge Data Primary Care Provider: Kamini Velazquez Attending Provider: Arian Gonzalez
[2021-12-12 08:41] VITALS: BP 139/70; PULSE 71; RESP 18; TEMP 37.2; O2SAT 93
[2021-12-12] MEDS: AMOXICILLIN 250 MG CAPSULE 500 MG PO (08:53)
[2021-12-12] MEDS: OXYCODONE IR 5 MG TABLET PO (08:53)
[2021-12-12 08:54] VITALS: PULSE 71
[2021-12-12] MEDS: ACETAMINOPHEN 325 MG TABLET 650 MG PO ×2 (08:54→14:02)
[2021-12-12] MEDS: ASPIRIN EC 81 MG TABLET PO (08:54)
[2021-12-12] MEDS: DOCUSATE 100 MG CAPSULE PO (08:54)
[2021-12-12] MEDS: carvediloL 12.5 MG TABLET PO (08:54)
[2021-12-12] MEDS: lisinopriL 20 MG TABLET 40 MG PO (08:54)
--- NOTE | 2021-12-12 09:00 | PT.IIE ---
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 Obesity (BMI 30-39.9) Obstructive sleep apnea of adult (~2007) Osteoarthritis Primary thrombocytopenia Tinnitus Physical Therapy Inpatient Evaluation/Re-Eval M1 PT/OT-IP Prior Functional Status Start: 12/12/21 11:37 Freq: NEEDED Status: Active Protocol: Document 12/12/21 09:00 AB (Rec: 12/12/21 11:54 AB [id number]) Medical Review Prior Functional Status Medical History Reviewed Yes Communication able to make needs known Mobility and Gait pt stated that he is independent with all mobilities and ambualtion without AD but occasionally uses a SPC Social History Household Members spouse,significant other Living Arrangements House Number of Floors (Floors) One Floor Number of Stairs To Enter/Railing? 3 steps without rails with L side vertical bar on edge of door frame to enter from the garage 2 platform steps to enter from the front of the house but pt has to ambulate farther to enter Home Environment Standard Height Toilet,Walk in Shower,Built-In Shower Seat Home Equipment Front Wheel Walker,Straight Cane,Raised Toilet Seat w/ Armrests,Hand Held Shower,Grab Bars Near Toilet M2 PT-IP Current Condition Start: 12/12/21 11:37 Freq: NEEDED Status: Active Protocol: Document 12/12/21 09:00 AB (Rec: 12/12/21 11:54 AB [id number]) Physical Therapy Current Condition Current Condition Evaluation Date 12/12/21 Treatment Diagnosis s/p L TKA; difficultyi n walking Onset Date 12/11/21 M3 PT-IP Subjective Start: 12/12/21 11:37 Freq: NEEDED Status: Active Protocol: Document 12/12/21 09:00 AB (Rec: 12/12/21 11:54 AB [id number]) Subjective Physical Therapy Visit Type Type Initial Evaluation Visit Start Time 09:00 Visit Stop Time 09:45 Total Visit Minutes 45 Number of RED CAP Visits 0 Physical Therapy Visit Comments Patient Comments agreeable to do PT Therapy Pain Assessment Pain When Pain Assessed At Rest Pain Present Pain Present Pain Reported Location Left Knee Intensity 1 Scale Used increases to 4/10 with mobility Pain Management Techniques Distraction,Modification of Treatment,Re-positioning, Timing of Activity with Medications M4 PT-IP Mobility and Gait Start: 12/12/21 11:37 Freq: NEEDED Status: Active Protocol: Document 12/12/21 09:00 AB (Rec: 12/12/21 11:54 AB [id number]) PT-Bed Mobility Assessment Supine to Sit Supine to Sit Standby Assistance PT-Transfer Assessment Sit to and From Stand Sit to and from Stand Minimal Assistance,1 Person Assistance,Use of Upper Extremities Equipment Transfer Assistive Device Gait Belt,Front Wheeled Walker Orthotic/Prosthetic Devices or Brace: No Transfers Transfer Destination Chair Transfer Technique Stand Step Pivot Transfer Ability Level of Assist Minimal Assistance,1 Person Assistance,Use of Upper Extremities Comments Mobility Comments pt completed supine to sit SBA . able to sit on EOB SBA. completed sit to stand min A and cues and ambulated in room ~ 20 ft using FWW min A and cues. slight buckling on L knee and cued for steadiness. pt requested to use the toilet and ambulated to the toilet using FWW min A and cues. able to maintain standing SBA to CGA. ambulated out to the sink using FWW min A and able to maintain standing SBA to CGA while completing handwashing. ambulated out to the hallway ~ 20 ft. completed up/down platform step max A and max cues using SPC. required assist of L knee for stability due to slight buckling. completed x 2 sets. pt ambulated ~ 30 ft using FWW min A and back to his room. agreed to sit on chair. positioned. call light and table placed within reach. caregiver training set up at 1 pm this afternoon. Gait Assessment Gait Gait Assistance Required: Minimum Assistance Distance (Feet) 30 Able to Maintain Weight Bearing Status Yes During Gait Assistive Devices Assistive Device Gait Belt,Front Wheeled Walker Orthotic/Prosthetic Devices or Brace: No Gait Deviations General Gait Pattern Antalgic,Decreased Stride Length,Decreased Feet Clearance Factors Limiting Gait Function Factors Limiting Gait Function Decreased Activity Tolerance, Decreased Strength,Difficulty Following Directions,Limited Range of Motion,Pain,Poor Balance,Poor Safety Awareness Stair Climbing Assessment Evaluation Level of Assist On Stairs Maximal Assistance,1 Person Assistance Devices Stair Climbing Assistive Devices Straight Cane Technique/Endurance Stair Climbing Direction Ascend and Descend Stair Climbing Technique Step to Step Number of Steps Climbed 1 Query Text: Stair Climbing Set # Repetitions (reps) 2 PT-Balance Assessment Sitting Balance and Reactions Static Sitting Balance Ability Good Dynamic Sitting Balance Ability Good Standing Balance and Reactions Static Standing Balance Ability Fair Dynamic Standing Balance Ability Fair Device Used FWW M5 PT-IP Objective Assessments Start: 12/12/21 11:37 Freq: NEEDED Status: Active Protocol: Document 12/12/21 09:00 AB (Rec: 12/12/21 11:54 AB [email or web address]) Orientation Orientation/Cognition Level of Alertness Alert Orientation Name,Place,Situation Language Function Ability Hard of Hearing Safety Awareness Decreased Safety Awareness Memory Description No Deficits Noted Gross Range of Motion Lower Extremity ROM Impairments L knee flexion: ~80 deg Strength Lower Extremity Strength Assessment Left Impaired Knee 3+/5 Sensation Assessment Sensation Gross Sensation WNL Muscle Tone Muscle Tone WNL Yes M6 PT-IP Treatment Start: 12/12/21 11:37 Freq: NEEDED Status: Active Protocol: Document 12/12/21 09:00 AB (Rec: 12/12/21 11:54 AB [email or web address]) Physical Therapy Treatment Education Education Provided Precautions,Weight Bearing Status,Post-Op Packet,Safety M7 PT-IP Assessment and Plan Start: 12/12/21 11:37 Freq: NEEDED Status: Active Protocol: Document 12/12/21 09:00 AB (Rec: 12/12/21 11:54 AB [email or web address]) PT Summary Assessment and Plan Potential Rehabilitation Potential Fair Status of Condition at Evaluation Evolving Summary Impairments Pain,ROM,Strength,Balance, Coordination,Sensation,Tone, Cognition,Bed Mobility, Transfers,Gait,Activity Tolerance Assessment Summary pt requiring min A with ambulation using FWW but requires max A for stair climbing using SPC with slight buckling of L knee. caregiver training set up for this afternoon at 1pm. will continue to assess progress and mobility. pt plans to go home and spouse to assist him. Goals Bed Mobility Goal Independent Transfer Goal Independent,Front Wheeled Walker Gait Goal Independent,Front Wheel Walker Gait Distance 200 Other Goals up/down 2 steps using SPC/MOTION DESIGNER min A up/down 2 platform steps using FWW min A Days to Meet Goals 5 Frequency of Treatment Frequency Of Treatment Twice a Day Treatment Plan Physical Therapy Treatment Plan Bed Mobility Training,Transfer Training,Gait Training, Therapeutic Exercise,Balance Retraining,Post Op Education, Discharge Planning,Hot or Cold Pack,Neuromuscular Re-ed, Coordination Retraining,Manual Therapy Weight Bearing Status Weight Bearing Status Weight Bear as Tolerated Allowed Weight Bearing Amount (enter % LLE WBAT or #) (%) Recommendations To Nursing Amount of Assist Needed 1 Person Assist Discharge Recommendations PT Discharge Recommendations Home with Assistance, Outpatient PT Transportation Needs at Discharge Private Vehicle
--- NOTE | 2021-12-12 09:17 | CM.DANOTE ---
DCP: Case received, EMR reviewed and met with patient. Introduced self and role. Was able to obtain information regarding patient's baseline activity level prior to hospitalization. DCP assessment completed with information currently available. Patient is a 71 year old male who admitted yesterday morning to the care of the orthopedic team. PCP: TRINI Jones. Payer: confirmed: Medicare/[employer]. Patient came to the hospital via private vehicle for a surgical procedure. Patient had a left total knee replacement. Patient has history of osteoarthritis. Met with patient in his room. He is alert and oriented, pleasant. He was sitting up in bed on his phone. Confirmed with patient that he resides in [place], with his soon to be , Anahi. Confirmed, she will assist him as needed when he goes home. She did get him a FWW, and has a cane as well. Patient has been independent at his baseline and driving. P: Patient has discharge orders for today pending working with physical therapy. Patricia Lozada RN/Kitchen Designer Discharge Planning/Care Management Advanced directive, confirm from FAMILY Start: 12/11/21 18:01 Freq: Q24H Status: Active Protocol: Document 12/11/21 18:01 YAD (Rec: 12/11/21 18:01 YAD [id number]) Advance Directive, confirm on record Time 18:01 Person contacted patient Copy received No CM Discharge Assessment Start: 12/12/21 09:15 Freq: Status: Active Protocol: Document 12/12/21 09:15 VM (Rec: 12/12/21 09:16 [id number]) Discharge Planning Assessment Assigned Snowboard Designer Patricia Lozada RN/Kitchen Designer Advance Directives? No Advance Directives on File No History Provided By Patient,Medical Record Prior Living Arrangements House Household Members significant other Type of transporation used prior to Drives own vehicle admit Independent with ADL's Yes Is patient alert and oriented? Yes DME Already Rented / Owned FWW / Walker,Cane Patient/Family Preference OP PT Therapy Barriers to Discharge No Discharge Plan Home Transportation Arrangement Significant other Referrals Initiated None needed Whiteboard Updated in Patient Room with Yes name and ext. # of Snowboard Designer Review Status In Process Next Review Type Continued Stay Review Pre-Anesthesia Assessment Start: 12/04/21 09:32 Freq: Status: Active Protocol: Document 12/04/21 09:32 CAB (Rec: 12/04/21 10:46 [facility] [id number]) Pre-Anesthesia Assessment Preferred Name Jn Patient Information Reviewed Via Phone Assessment Assessment Completed With Patient H&P Completed Within 30 Days Yes Comment Labs/ECG @ [facility] 11/25/21, COVID screen @ 12/09/21 Primary Care Provider Kamini Velazquez Seen Specialist in Last 12 Months Yes Specialist Seen Manufacturing Quality Manager,Orthopedist, Sleep specialist Primary Language Tuvaluan Sustainability Coach Required No Height 6 ft 2 in Weight 235 lb Body Mass Index (BMI) 30.2 Hearing Ability Hard of Hearing,Use of Hearing Aid Visual Assist Glasses Dentition Type Teeth, Natural Present,Teeth, Broken,Teeth, Missing Barriers to Learning Auditory Hx Anesthesia Reactions No Hx Family Anesthesia Reaction No Hx Malignant Hyperthermia No Hx Blood Transfusions No Anesthesia Review Requested No alcohol intake current alcohol intake frequency a few times a week Smoking Status Former smoker how long ago did patient quit smoking Quit 05/1998 Substance Use Type marijuana Comment Advised not to smoke marijuana 24 hours prior Pain Present Pain Reported Musculoskeletal Symptoms Abnormal Gait,Difficulty Walking,Joint Pain History of Falling (Recent or History of Yes ) Patient is completely paralyzed or No completely immobile Mental Status Oriented to own ability Is patient on oxygen? No Does patient have NOVOA/SOB No Hx Sleep Apnea Yes CPAP/BIPAP use prescribed and used routinely Will Bring CPAP/BIPAP DOS Yes Currently Taking a Beta Rachel Yes: Carvedilol Can You Climb a Flight of Stairs Without Yes SOB Hx Chest Pain No Hx SOB No Hx Syncope or Dizziness No Anti-Coagulant Therapy No Has a Telephone Claims Representative No Cardiac Testing No Hx Pacemaker/ICD No Pacemaker Rep Required? 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 Received a COVID vaccine? Yes Received all doses? Yes Marital Status / Lives With significant other Prior Living Arrangements House Number of Floors (Floors) One Floor Support System Significant Other Does the Patient Have Assistance After Yes Surgery Patient Discharge Plan Description Return Home Comment Pt advised overnight length of stay per surgeon Feels Safe in Current Environment Yes Been Physically Hurt or Threatened By a No Person in Current Environment Do you have thoughts of harming yourself None or others? Are you currently considering suicide? No Do you have a plan to hurt yourself or No Plan others? Do You Have Any Spiritual Beliefs That No May Affect Your HC Choices? Do You Have Any Cultural Practices That No May Affect Your HC Choices? Comment Moravian Who Can We Speak to About Patient's Care Family, friends Identifying Code for Release of Patient Declines to issue Information Health Care Proxy/Next of Kin Cora (daughter) Health Care Proxy Emergency Contact Name Anahi (S.O.) Emergency Contact Advance Directives? No: Currently working on Power of Automotive Finance Manager No PAC Instructions Bring CPAP/BIPAP,Durable medical equipment,Medications to take/avoid,Nasal antibiotic ,No ETOH/petroleum product on skin DOS,NPO,Post-op transportation,Pre-surgical wash,Sensory aids,Sturdy shoes /comfortable clothes,Do not bring valuables and remove jewelry
[2021-12-12 11:25] VITALS: BP 113/74; PULSE 69; RESP 18; TEMP 36.9; O2SAT 94
[2021-12-12] MEDS: OXYCODONE IR 10 MG TABLET PO (12:06)
--- NOTE | 2021-12-12 13:05 | PT.IPTN ---
Current Diagnoses Unilateral primary osteoarthritis, left knee (12/11/21) Surgery Performed Operation Date: 12/11/21 12:15 Actual Procedures p Total Knee Arthroplasty(Left) - Arian Gonzalez MD Physical Therapy Treatment Note M2 PT-IP Current Condition Start: 12/12/21 11:37 Freq: NEEDED Status: Discharge Protocol: Document 12/12/21 09:00 AB (Rec: 12/12/21 11:54 AB [id number]) Physical Therapy Current Condition Current Condition Evaluation Date 12/12/21 Treatment Diagnosis s/p L TKA; difficultyi n walking Onset Date 12/11/21 M3 PT-IP Subjective Start: 12/12/21 11:37 Freq: NEEDED Status: Discharge Protocol: Document 12/12/21 13:05 AB (Rec: 12/12/21 17:35 AB [email or web address]) Subjective Physical Therapy Visit Type Type Treatment Note Visit Start Time 13:05 Visit Stop Time 14:00 Total Visit Minutes 55 Number of BUDDHIST MONK Visits 0 Physical Therapy Visit Comments Patient Comments agreeable to do PT; spouse in room for caregiver training Therapy Pain Assessment Pain When Pain Assessed At Rest Pain Present Pain Present Pain Reported Location Left Knee Intensity 2 Scale Used Numeric (0 - 10) Pain Management Techniques Distraction,Modification of Treatment,Re-positioning, Timing of Activity with Medications M4 PT-IP Mobility and Gait Start: 12/12/21 11:37 Freq: NEEDED Status: Discharge Protocol: Document 12/12/21 13:05 AB (Rec: 12/12/21 17:35 AB [email or web address]) PT-Bed Mobility Assessment Supine to Sit Supine to Sit Standby Assistance Sit to Supine Sit to Supine Standby Assistance PT-Transfer Assessment Sit to and From Stand Sit to and from Stand Contact Guard Assistance, Minimal Assistance,1 Person Assistance,Use of Upper Extremities Equipment Transfer Assistive Device Gait Belt,Front Wheeled Walker Orthotic/Prosthetic Devices or Brace: No Transfers Transfer Destination Bed,Chair Transfer Technique ambulated Transfer Ability Level of Assist Contact Guard Assistance, Minimal Assistance,1 Person Assistance,Use of Upper Extremities Comments Mobility Comments pt sitting on chair. spouse in room for caregiver training . educated spouse on how to use safety belt and how to assist pt. spouse was able to put safety belt on pt. assisted pt with sit to stand CGA to min A. initially cued by PT. spouse able to ambulate with pt in room ~ 10 ft using FWW min A to EOB. pt demonstrated sit<>supine SBA. pt ambulated in room again using FWW min A ~ 15 ft and continues to have slight buckling of L knee. pt sat back on EOB. educated pt again on how to activate L quads for steadiness. pt requested to use the toilet and spouse assist pt. pt sat on chair afterwards. spouse clarified stair set up at home. stated that pt can go in from the front door with 3 steps with side 2 rails and can only hold on to one rail at a time. pt completed sit to stand with spouse assisting and ambulated towards the stair using FWW ~ 125 ft CGA to min A and cues. pt rested on w/c. educated pt and spouse on stair climbing technique. Pt completed up/down steps holding on to L rail with B hands and spouse was able to assist pt safely. pt ambulated back to his room using FWW CGA and sat on chair . call light and table within reach. pt and spouse without any other concerns. Gait Assessment Gait Gait Assistance Required: Contact Guard Assist,Minimum Assistance Distance (Feet) 125 Able to Maintain Weight Bearing Status Yes During Gait Assistive Devices Assistive Device Gait Belt,Front Wheeled Walker Orthotic/Prosthetic Devices or Brace: No Gait Deviations General Gait Pattern Decreased Stride Length, Decreased Feet Clearance Factors Limiting Gait Function Factors Limiting Gait Function Decreased Activity Tolerance, Decreased Strength,Limited Range of Motion,Pain,Poor Balance,Poor Safety Awareness Stair Climbing Assessment Evaluation Level of Assist On Stairs Contact Guard Assistance, Minimal Assistance Devices Stair Climbing Assistive Devices Left Railing Technique/Endurance Stair Climbing Direction Ascend and Descend Stair Climbing Technique Step to Step Number of Steps Climbed 3 Stair Climbing Set # Repetitions (reps) 1 M5 PT-IP Objective Assessments Start: 12/12/21 11:37 Freq: NEEDED Status: Discharge Protocol: Document 12/12/21 09:00 AB (Rec: 12/12/21 11:54 AB [email or web address]) Orientation Orientation/Cognition Level of Alertness Alert Orientation Name,Place,Situation Language Function Ability Hard of Hearing Safety Awareness Decreased Safety Awareness Memory Description No Deficits Noted Gross Range of Motion Lower Extremity ROM Impairments L knee flexion: ~80 deg Strength Lower Extremity Strength Assessment Left Impaired Knee 3+/5 Sensation Assessment Sensation Gross Sensation WNL Muscle Tone Muscle Tone WNL Yes M6 PT-IP Treatment Start: 12/12/21 11:37 Freq: NEEDED Status: Discharge Protocol: Document 12/12/21 13:05 AB (Rec: 12/12/21 17:35 AB [email or web address]) Physical Therapy Treatment Education Education Provided Safety M7 PT-IP Assessment and Plan Start: 12/12/21 11:37 Freq: NEEDED Status: Discharge Protocol: Document 12/12/21 13:05 AB (Rec: 12/12/21 17:35 AB [email or web address]) PT Summary Assessment and Plan Potential Rehabilitation Potential Good Summary Impairments Pain,ROM,Strength,Balance, Coordination,Sensation,Tone, Cognition,Bed Mobility, Transfers,Gait,Activity Tolerance Progress Towards Goals Slow Progress due to Activity Tolerance Assessment Summary caregiver training conducted and spouse was able to assist pt safely. pt plans to go home and has outpt PT set up. Goals Bed Mobility Goal Independent Transfer Goal Independent,Front Wheeled Walker Gait Goal Independent,Front Wheel Walker Gait Distance 200 Other Goals up/down 2 steps using SPC/LICENSING MANAGER min A up/down 2 platform steps using FWW min A Days to Meet Goals 5 Frequency of Treatment Frequency Of Treatment Twice a Day Treatment Plan Physical Therapy Treatment Plan Bed Mobility Training,Transfer Training,Gait Training, Therapeutic Exercise,Balance Retraining,Post Op Education, Discharge Planning,Hot or Cold Pack,Neuromuscular Re-ed, Coordination Retraining,Manual Therapy Weight Bearing Status Weight Bearing Status Weight Bear as Tolerated Allowed Weight Bearing Amount (enter % LLE WBAT or #) (%) Recommendations To Nursing Amount of Assist Needed 1 Person Assist Discharge Recommendations PT Discharge Recommendations Home with Assistance, Outpatient PT Transportation Needs at Discharge Private Vehicle
--- NOTE | 2021-12-12 14:28 | PC.NURSE ---
Day shift: paperwork signed and all questions answered. [facility] and [employer] remain CDI. Pt has all personal belongings. MD escamilla went to Pts pharmacy electronic. Pt encouraged to drinking plenty of water, get up and move and take medications as directed. CMS OK. VS WNL. Left unit at approx 1445 via WC. His SO Anahi is driving him home.
== END 2021-12-12 14:41 | disposition home or self-care (01) ==
LOC: OR 10:45 → AC 14:05
PROVIDERS: PCP Physician Assistant; Referring Provider Orthopaedic Surgery; Visit Provider Orthopaedic Surgery
PROC: 0SRD0JZ Replacement of Left Knee Joint with Synthetic Substitute, Open Approach (ICD-10-PCS; CPT 27447; principal; 2021-12-11 12:15)
DX: M17.12 Unilateral primary osteoarthritis, left knee (principal); I10 Essential (primary) hypertension; G47.33 Obstructive sleep apnea (adult) (pediatric)
CPT/HCPCS: 27447; 36415; 73560; 85014; 85018; 97116; 97162; 97530; C1776; C1713; C9290; J0171; J0690; J1100; J2270; J2405; J2704

== ENCOUNTER 2021-12-13 14:28 | Emergency (ER) | payer MEDICARE, OTHER, SELFPAY ==
[2021-12-11 17:43] VITALS: BMI 30.2
[2021-12-13 14:57] VITALS: BP 136/66; PULSE 78; RESP 20; TEMP 36.6; O2SAT 95; BMI 30.2
--- NOTE | 2021-12-13 15:08 | ED.RECABL ---
HPI - Recheck/Abnormal Lab/Rx General Chief Complaint: Recheck/Abnormal Lab/Rx Stated Complaint: Surgical site leakage post knee surgery 12/11 Time Seen by Provider: 12/13/21 15:01 Source: patient Mode of arrival: Ambulatory History of Present Illness HPI narrative: Patient is a 71-year-old male with history of hypertension arthritis status post left total knee arthroscopy day 2. Presenting with bleeding. He states that he got up and moved around, and then had leakage from his bandage. He notes that there is quite a bit of blood there. He is able get up and walk. His pain is controlled on oxycodone. He denies any calf pain or tenderness or shortness of breath. Just leakage and bleeding. Related Data Home Medications Medication Instructions Recorded Confirmed amlodipine 10 mg tablet 10 mg PO QPM #0 11/19/10 12/11/21 echinacea 500 mg capsule 760 mg PO BID #0 04/01/11 12/11/21 [id number] 1 cap PO BID #0 04/01/11 12/11/21 capsule (Glucosamine Complex-MSM) salmon oil-omega-3 fatty acids 1,000 cap PO BID #0 04/01/11 12/11/21 1,000 mg-200 mg capsule ([place] Oil-1000) carvedilol 25 mg tablet 12.5 mg PO BID tab 09/13/20 12/11/21 lisinopril 20 mg tablet 40 mg PO DAILY 09/13/20 12/11/21 simvastatin 20 mg tablet 20 mg PO QPM tab 09/13/20 12/11/21 amoxicillin 500 mg tablet 500 mg PO BID 12/04/21 12/11/21 Previous Rx's Medication Instructions Recorded acetaminophen 325 mg tablet 650 mg PO TID 30 Days #180 tab 12/12/21 aspirin 81 mg tablet,delayed 81 mg PO BID 42 Days #84 tab 12/12/21 release ibuprofen 400 mg tablet 400 mg PO Q4HR 30 Days tab 12/12/21 oxycodone 5 mg tablet 5 mg PO Q4H PRN #40 tab 12/12/21 Allergies Allergy/AdvReac Type Severity Reaction Status Date / Time No Known Drug Allergies Allergy Verified 12/11/21 11:10 Review of Systems Review of Systems Narrative: GENERAL: Denies chills, fatigue, malaise, fever, sweats, travel HEENT: Denies sinus pain, ear pain, sore throat, difficulty swallowing, neck pain RESPIRATORY: Denies dyspnea, cough, wheezing, hemoptysis, sputum. CARDIOVASCULAR: Denies chest pain, palpitations, orthopnea, edema GASTROINTESTINAL: Denies nausea, vomiting, abdominal pain, diarrhea, constipation, melena. : Denies dysuria, frequency, incontinence, hematuria, urinary retention, flank pain. MUSCULOSKELETAL: Denies weakness, joint pain, or bony pain SKIN: See HPI NEUROLOGIC: Denies weakness, dizziness, headache, numbness, change in speech, confusion PSYCHIATRIC: No concerning psychosocial issues. 12 point review of systems is negative except for those stated above and HPI Patient History Medical History Atopic dermatitis Chronic recurrent streptococcal erysipelas Diverticulosis Eczema High frequency hearing loss Hyperlipemia, mixed Hypertension Kidney stones test driller associated with adverse incidents Obesity (BMI 30-39.9) Obstructive sleep apnea of adult (~2007) Osteoarthritis Primary thrombocytopenia Tinnitus Surgical History History of cardiac cath (~2007) History of left knee surgery History of right knee surgery History of surgery History of vasectomy (1983) Hx of colonoscopy Hx of left inguinal hernia repair Hx of right inguinal hernia repair Social History marital status: details: Sita, of 45 years, 04/28/2017 number of children: 2 household members: significant other lives independently: Yes Smoking Status: Former smoker alcohol intake: current substance use type: marijuana Smoking Status: Former smoker alcohol intake frequency: a few times a month Substance Use Type: marijuana Exam Initial Vital Signs Initial Vital Signs: Vital Signs Temperature 97.9 F 12/13/21 14:57 Pulse Rate 78 12/13/21 14:57 Respiratory Rate 20 12/13/21 14:57 Blood Pressure 136/66 12/13/21 14:57 Pulse Oximetry 95 12/13/21 14:57 GENERAL: Alert well-appearing 71-year-old male CARDIOVASCULAR: peripheral pulses in tact, cap refill <2 sec RESPIRATORY: No respiratory distress, speaks in full sentences without difficulty EXTREMITIES: Normal range of motion, no clubbing or edema. Neurovascularly intact Left lower extremity, postoperative changes. Bandage does have quite a bit of blood and leaking through the bandage. It is removed surgical site itself appears well he does have minimal using the overall looks good. No calf pain or tenderness. Distal pedal pulse intact. NEUROLOGICAL: Cranial nerves II through XII grossly intact. Normal gait and speech. SKIN: Postoperative Course Vital Signs Vital signs: Vital Signs - 8 hr 12/13/21 14:57 Temperature 97.9 F Pulse Rate 78 Respiratory Rate 20 Blood Pressure 136/66 Pulse Oximetry 95 MDM - Recheck/Abnormal Lab/Rx MDM Narrative Medical decision making narrative: There is small amount of oozing, however not significant. Wound is clean new dressing placed. Discharge Plan Departure Patient Disposition: Home Clinical Impression: Dressing change Instructions: Knee Replacement Activity Restrictions/Additional Instructions: *You have been diagnosed with dressing change after total knee *What to do: Please continue to follow orthopedic instructions. He may have some oozing, this is to be expected. If it starts to tripping beyond the bandage you should call orthopedics for further evaluation. *Continue to take medications as directed *Follow up with your primary care provider in 2-3 days or call [phone] *Return to ER if you should have increasing bleeding fever calf pain or any new, worsening or concerning symptoms Prescriptions: No Action amlodipine 10 mg Tablet 10 mg PO QPM Qty: 0 0RF echinacea 500 mg Capsule 760 mg PO BID Qty: 0 0RF Rx Instructions: administer with meals Glucosamine Complex-MSM Capsule 1 cap PO BID Qty: 0 0RF [place] Oil-1000 1,000-200 mg Capsule 1,000 cap PO BID Qty: 0 0RF amoxicillin 500 mg Tablet 500 mg PO BID 0RF acetaminophen 325 mg Tablet 650 mg PO TID 30 Days Qty: 180 0RF aspirin 81 mg Tablet,Delayed Release (Dr/Ec) 81 mg PO BID 42 Days Qty: 84 0RF ibuprofen 400 mg Tablet 400 mg PO Q4HR 30 Days 0RF oxycodone 5 mg Tablet 5 mg PO Q4H PRN (Reason: Pain, Moderate (4-6)) Qty: 40 0RF lisinopril 20 mg tablet 40 mg PO DAILY 0RF carvedilol 25 mg tablet 12.5 mg PO BID 0RF Rx Instructions: must administer with a meal/food simvastatin 20 mg tablet 20 mg PO QPM 0RF Referrals: Kamini Velazquez PA-C [Primary Care Provider] - Arian Gonzalez MD [Physician] -
--- NOTE | 2021-12-13 15:51 | PC.NURSE ---
Knee prepped by Dr. Flores, surgical dressing replaced.
== END 2021-12-13 15:52 | disposition home or self-care (01) ==
PROVIDERS: Emergency Provider Emergency Medicine; PCP Physician Assistant; Referring Provider Orthopaedic Surgery
DX: M96.830 Postprocedural hemorrhage of a musculoskeletal structure following a musculoskeletal system procedure (principal); Z48.01 Encounter for change or removal of surgical wound dressing
CPT/HCPCS: 99281

== ENCOUNTER → 2022-08-12 06:35 | Outpatient (CLI) | payer MEDICARE, OTHER, SELFPAY ==
[2021-12-11 17:43] VITALS: BMI 30.2
--- NOTE | 2022-08-12 06:36 | DI.US.S_ITS ---
PROCEDURE: US ABDOMEN LIMITED INDICATIONS: LUMP AND DISCOMFORT NEAR UMBILICUS ?HERNIA TECHNIQUE: Real-time scanning was performed of the abdominal and retroperitoneal organs, with image documentation. COMPARISON: None. FINDINGS: There are 2 fat containing, partially reducible midline hernias superior to the umbilicus. No herniation of bowel. IMPRESSION: Fat containing partially reducible midline supraumbilical hernias as above. Dictated by: Dilia Sanchez M.D. on 08/12/2022 at 9:13 Approved by: Dilia Sanchez M.D. on 08/12/2022 at 9:16
== END ==
PROVIDERS: PCP Physician Assistant; Referring Provider Physician Assistant; Visit Provider Physician Assistant
DX: K42.0 Umbilical hernia with obstruction, without gangrene (principal)
CPT/HCPCS: 76705

== ENCOUNTER → 2022-10-05 14:19 | Outpatient (CLI) | payer MEDICARE, OTHER, SELFPAY ==
[2021-12-11 17:43] VITALS: BMI 30.2
== END ==
PROVIDERS: PCP Physician Assistant; Referring Provider Surgery; Visit Provider Surgery
DX: Z01.810 Encounter for preprocedural cardiovascular examination (principal)
CPT/HCPCS: 93005

== ENCOUNTER 2022-10-06 06:43 | Day surgery (SDC) | payer MEDICARE, OTHER, SELFPAY ==
[2021-12-11 17:43] VITALS: BMI 30.2
[2022-09-30 15:20] VITALS: BMI 32.1
[2022-10-06] VITALS (7 sets, daily range): BP systolic 143–156; BP diastolic 79–91; PULSE 54–70; RESP 12–16; TEMP 36.1–36.4; O2SAT 88–96; BMI 32.1
--- NOTE | 2022-10-06 07:37 | P.HP_ITS ---
History of Present Illness History of Present Illness Chief complaint: [facility] [place] Narrative: No changes since seen in office. No concerns or questions continues to be symptomatic from his hernia. Patient History Medical History Atopic dermatitis Chronic recurrent streptococcal erysipelas COVID-19 virus infection (01/2022) Diverticulosis Eczema High frequency hearing loss Hyperlipemia, mixed Hypertension Kidney stones range examiner associated with adverse incidents Obesity (BMI 30-39.9) Obstructive sleep apnea of adult (~2007) Osteoarthritis Primary thrombocytopenia Tinnitus Surgical History History of cardiac cath (~2007) History of left knee surgery History of right knee surgery History of surgery History of total left knee replacement (12/11/21) History of vasectomy (1983) Hx of colonoscopy Hx of left inguinal hernia repair Hx of right inguinal hernia repair Family & Social History Social History: household members significant other lives independently Yes Tobacco & Substance use: Smoking Status Former smoker alcohol intake current alcohol intake frequency a few times a month Substance Use Type marijuana Meds Home Medications and Allergies Home Medications Medication Instructions Recorded Confirmed Type amlodipine 10 mg tablet 10 mg PO QPM ##0 11/19/10 10/06/22 History echinacea 500 mg capsule 350 mg PO BID ##0 04/01/11 10/06/22 History [id number]-[id number] 1 cap PO BID ##0 04/01/11 10/06/22 History capsule (Glucosamine Complex-MSM capsule) salmon oil-omega-3 fatty acids 1,000 cap PO BID ##0 04/01/11 10/06/22 History 1,000 mg-200 mg capsule ([place] Oil-) carvedilol 25 mg tablet 12.5 mg PO BID 09/13/20 10/06/22 History lisinopril 20 mg tablet 40 mg PO DAILY 09/13/20 10/06/22 History simvastatin 20 mg tablet 20 mg PO QPM 09/13/20 10/06/22 History amoxicillin 500 mg tablet 500 mg PO BID Chronic strep to 12/04/21 10/06/22 History left leg aspirin 81 mg tablet,delayed 81 mg PO DAILY 09/01/22 10/06/22 History release loratadine 10 mg tablet 10 mg PO DAILY 09/01/22 10/06/22 History Allergies Allergy/AdvReac Type Severity Reaction Status Date / Time No Known Drug Allergies Allergy Verified 10/06/22 07:23 Exam Vital Signs (past 8 hours): - 10/06/22 07:26 Temperature 97 F L Pulse Rate 70 Respiratory Rate 16 Blood Pressure 154/85 H Pulse Oximetry 96 Oxygen Delivery Method Room Air Oxygen Delivery Method Room Air Const General: cooperative, healthy appearing and comfortable HENMT Head: normal to inspection Resp Effort & Inspection: normal respiratory effort and able to speak in complete sentences Cardio Pulses: radial pulses present Assessment & Plan Assessment and plan (1) Ventral hernia: Qualifiers: Obstruction and gangrene presence: without obstruction or gangrene Qualified Code(s): K43.9 - Ventral hernia without obstruction or gangrene Status: Acute Plan I discussed risks benefits and alternatives of repair of these umbilical/ventral hernias that are symptomatic. Patient understands he understands risks including not limited to bleeding infection injury to bowel need for further procedures though they are rare. He would like to proceed Time Spent With Patient Critical Care time: I spent a total of [] minutes of critical care time on this patient's care today; this time is exclusive of procedural time.
[2022-10-06] MEDS: LACTATED RINGERS 1,000 ML 42 ML IV (07:46)
[2022-10-06] MEDS: CEFAZOLIN 2 GM/100 ML PREMIX 100 ML IV (07:50)
[2022-10-06] MEDS: BUPIVACAINE 0.5% W/ EPI (PF) 30 ML VIAL INJ (08:03)
--- NOTE | 2022-10-06 08:05 | SUR.OPER ---
Supine on padded OR bed, head on pillow, arms secured on padded arm boards at <90 degrees abduction, legs uncrossed, safety belt at thigh, tape over blanket over lower legs. Pt positioned per direction and supervision of Dr Unger.
--- NOTE | 2022-10-06 09:52 | P.OP_ITS ---
Operative Date/Time/Diagnoses Date of procedure: 10/06/22 Pre-op diagnosis: Ventral and umbilical hernia Post-op diagnosis: same Procedure & Clinicians Procedure: Open ventral hernia repair Same procedure as scheduled: Yes Indications: Symptomatic ventral hernia. Surgeon: Sridevi Unger Click Yes if Unassisted: Yes Anesthesia Type: General Operative Notes Findings: Ventral hernia 5 cm in size. 8.4 cm Ventralex mesh used to repair Procedure in detail: Patient was taken to the operating room placed supine in the operating room table. Bilateral SCDs were placed perioperative antibiotics were provided. A time-out was performed. General endotracheal anesthesia was induced. Next the area was prepped and draped in the usual sterile fashion. An incision was made in the midline overlying the defect. This incision was carried down through the subcutaneous tissues delineating the hernia sacs and their defects. Upon examination there were 3 separate defects that were very close together. One was to the right 1 was to the left about 2 cm above the umbilicus, and the 3rd was at the umbilicus. Of note there was a large sac containing large amount of omentum compared to the size of the defect. The omentum listed to the right of the umbilicus. This entire sac was removed some of the omentum was resected and the rest was returned to the abdomen. During the course of dissecting reducing and ligating the sacs of these hernias which was done with a combination of blunt dissection and electrocautery the defects naturally ran into each other and became 1 defect. The small bands of tissue between them provided no strength of the fascia at all, and so were joined together. The defect in total that was repaired was 5 cm. A 8.4 cm Ventralex composite mesh was used to place into the defect. The mesh was placed intra-abdominally. There was omentum in the defect and nearby but no bowel was seen during the course of the operation and care was taken. The mesh was secured to the posterior aspect of the posterior abdominal wall fascia using interrupted 2-0 Prolene sutures. Full- thickness bites of the fascia was taken in the 4 quadrants. Additional sutures were placed in between these. The fascia was closed overlying with a few interrupted Prolene sutures as well. The subcutaneous tissue was then closed with interrupted 3-0 Vicryl sutures and the skin was closed with a running Monocryl and dressed with Steri-Strips. A pressure dressing with 4 x 4 and Tegaderm was placed over top of this. Patient tolerated the procedure well EBL was minimal there were no complications and they went in good condition to the postoperative care unit. Complications: none
--- NOTE | 2022-10-06 10:13 | SUR.PHASEII ---
Patient drowsy, O2 sat monitor applied. Sats 90-94%RA.
== END 2022-10-06 10:45 | disposition home or self-care (01) ==
PROVIDERS: PCP Physician Assistant; Referring Provider Surgery; Visit Provider Surgery
PROC: (CPT 49594; principal; 2022-10-06 07:45)
DX: K43.6 Other and unspecified ventral hernia with obstruction, without gangrene (principal); K42.0 Umbilical hernia with obstruction, without gangrene
CPT/HCPCS: 49594; J0690; J1100; J2405; J2704; J3010

== ENCOUNTER 2023-06-08 14:00 | Emergency (ER) | payer MEDICARE, OTHER, SELFPAY ==
[2021-12-11 17:43] VITALS: BMI 30.2
[2023-06-08 14:02] VITALS: BP 142/82; PULSE 54; RESP 16; TEMP 36.9; O2SAT 96; BMI 32.1
[2023-06-08] MEDS: TET,DIPH,PERTUSS(ACELL),VAC/PF 0.5 ML SYRINGE IM (14:15)
[2023-06-08 14:23] VITALS: PULSE 54
--- NOTE | 2023-06-08 14:26 | ED_ITS ---
HPI - General Adult General Chief complaint: Extremity Injury, Upper Stated complaint: rt hand lac Time Seen by Provider: 06/08/23 14:09 Source: patient Mode of arrival: Ambulatory History of Present Illness HPI narrative: Patient is a 72-year-old right-hand dominant male who is here for evaluation of a cut to the back of his right hand. He was working with some hand tools at home when he states he cut it on a bench. He does need his tetanus updated. No other injuries from the event. He did cover with a bandage prior to arrival. No issues with moving his fingers. Related Data Home Medications Medication Instructions Recorded Confirmed amlodipine 10 mg tablet 10 mg PO QPM ##0 11/19/10 10/20/22 echinacea 500 mg capsule 350 mg PO BID ##0 04/01/11 10/20/22 mhvchdyoeby-fld-bwcoepvhp-vitC 1 cap PO BID ##0 04/01/11 10/20/22 capsule (Glucosamine Complex-MSM capsule) salmon oil-omega-3 fatty acids 1,000 cap PO BID ##0 04/01/11 10/20/22 1,000 mg-200 mg capsule (Red Wing Oil-) carvedilol 25 mg tablet 12.5 mg PO BID 09/13/20 10/20/22 lisinopril 20 mg tablet 40 mg PO DAILY 09/13/20 10/20/22 simvastatin 20 mg tablet 20 mg PO QPM 09/13/20 10/20/22 amoxicillin 500 mg tablet 500 mg PO BID Chronic strep to 12/04/21 10/20/22 left leg aspirin 81 mg tablet,delayed 81 mg PO DAILY 09/01/22 10/20/22 release loratadine 10 mg tablet 10 mg PO DAILY 09/01/22 10/20/22 Previous Rx's Medication Instructions Recorded docusate sodium 100 mg capsule 100 mg PO BID #30 caps 10/06/22 (Colace) hydrocodone 5 mg-acetaminophen 325 1 tab PO Q4-6H PRN pain #14 tabs 10/06/22 mg tablet ibuprofen 600 mg tablet 600 mg PO QID #20 tabs 10/06/22 Allergies Allergy/AdvReac Type Severity Reaction Status Date / Time No Known Drug Allergies Allergy Verified 10/20/22 15:02 Review of Systems Musculoskeletal Musculoskeletal: Reports system reviewed and no additional complaints, except as documented Integumentary/Breasts Skin/Breast: Reports system reviewed and no additional complaints, except as documented Neurologic Neurologic: Reports system reviewed and no additional complaints, except as documented Hematologic/Lymphatic On Anticoagulants: No Patient History Medical History Atopic dermatitis Chronic recurrent streptococcal erysipelas COVID-19 virus infection (01/2022) Diverticulosis Eczema High frequency hearing loss Hyperlipemia, mixed Hypertension 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 Obesity (BMI 30-39.9) Obstructive sleep apnea of adult (~2007) Osteoarthritis Primary thrombocytopenia Tinnitus Ventral hernia Surgical History History of cardiac cath (~2007) History of left knee surgery History of right knee surgery History of surgery History of total left knee replacement (12/11/21) History of vasectomy (1983) Hx of colonoscopy Hx of left inguinal hernia repair Hx of right inguinal hernia repair Social History marital status: details: Sita, of 45 years, 04/28/2017 number of children: 2 household members: significant other lives independently: Yes Smoking Status: Former smoker alcohol intake: current substance use type: marijuana Smoking Status: Former smoker alcohol intake frequency: a few times a month Substance Use Type: marijuana Exam Initial Vital Signs Initial Vital Signs: Vital Signs Temperature 98.5 F 06/08/23 14:02 Pulse Rate 54 L 06/08/23 14:02 Respiratory Rate 16 06/08/23 14:02 Blood Pressure 142/82 H 06/08/23 14:02 Pulse Oximetry 96 06/08/23 14:02 Oxygen Delivery Method Room Air 06/08/23 14:02 Cardio Pulses: radial pulses present on the right Skin Other: Patient with a superficial jagged in his 6 cm laceration on the dorsum of the right hand ulnar aspect. No active bleeding. Neuro Sensory Exam: no sensory deficits noted Course Orders Ordered: Bacitracin (Bacitracin Oint 0.9 Gm Pckt) 1 applic TOP NOW ONE Stop: 06/08/23 14:32 Discontinued Medications Diphtheria/Tetanus/Acell Pertussis (Tet,Diph,Pertuss(Acell),Vac/Pf 0.5 Ml Syrin ge) 0.5 ml IM .ONCE ONE Stop: 06/08/23 14:10 Last Admin: 06/08/23 14:15 Dose: 0.5 ml Documented By: SRIRAM Vital Signs Vital signs: Vital Signs - 8 hr 06/08/23 14:02 06/08/23 14:23 Temperature 98.5 F Pulse Rate 54 L Pulse Rate [Right Radial] 54 L Respiratory Rate 16 Blood Pressure 142/82 H Pulse Oximetry 96 Oxygen Delivery Method Room Air Medical Decision Making MDM Narrative Medical decision making narrative: His tetanus was updated. The wound on the back of his right hand was cleaned. There was no gross contamination. It is a mixture of a skin tear in more of an abrasion. I attempted to try to approximate the edges with Steri-Strips although this was not sufficient. I actually do not think that putting stitches would actually improve the wound either. I did discuss options with him and afterwards we decided just to let this heal on its own. We discussed care instructions. No indication for antibiotics. He was given return precautions. Discharge Plan Departure Patient Disposition: Home Clinical Impression: Wound of skin Instructions: DI for Abrasion Activity Restrictions/Additional Instructions: You can wash your hands like normal. You can use soap and water. I recommend a topical antibiotic ointment such as bacitracin or Neosporin. You can purchase this [id number]. I recommend that you do keep it covered with a bandage return to the emergency department for new or worsening symptoms. Prescriptions: No Action amlodipine 10 mg Tablet 10 mg PO QPM Qty: 0 echinacea 500 mg Capsule 350 mg PO BID Qty: 0 Rx Instructions: administer with meals Glucosamine Complex-MSM Capsule 1 cap PO BID Qty: 0 Red Wing Oil-1000 1,000-200 mg Capsule 1,000 cap PO BID Qty: 0 loratadine 10 mg tablet 10 mg PO DAILY aspirin 81 mg tablet,delayed release (DR/EC) 81 mg PO DAILY amoxicillin 500 mg Tablet 500 mg PO BID hydrocodone-acetaminophen 5-325 mg tablet 1 tab PO Q4-6H PRN (Reason: pain) Qty: 14 0RF ibuprofen 600 mg tablet 600 mg PO QID Qty: 20 0RF docusate sodium [Colace] 100 mg capsule 100 mg PO BID Qty: 30 0RF Rx Instructions: Take while taking hydrocodone for pain to prevent constipation. lisinopril 20 mg tablet 40 mg PO DAILY carvedilol 25 mg tablet 12.5 mg PO BID Rx Instructions: must administer with a meal/food simvastatin 20 mg tablet 20 mg PO QPM Referrals: Kamini Velazquez PA-C [Primary Care Provider] - Stand Alone Forms: Patient Portal/API
[2023-06-08] MEDS: BACITRACIN OINT 0.9 GM PCKT 1 APPLIC TOP (14:35)
[2023-06-08 14:36] VITALS: BP 140/80; PULSE 62; RESP 18; O2SAT 97
== END 2023-06-08 14:41 | disposition home or self-care (01) ==
PROVIDERS: Emergency Provider Emergency Medicine; PCP Physician Assistant
DX: S61.411A Laceration without foreign body of right hand, initial encounter (principal); W26.9XXA Contact with unspecified sharp object(s), initial encounter; Z23 Encounter for immunization
CPT/HCPCS: 90471; 99283; 90715

== ENCOUNTER → 2023-08-23 15:09 | Outpatient (CLI) | payer MEDICARE, OTHER, SELFPAY ==
[2021-12-11 17:43] VITALS: BMI 30.2
--- NOTE | 2023-08-23 | DI.US.S_ITS ---
PROCEDURE: US PERIPH VENOUS LOW EXTREM RT INDICATIONS: swlling of right leg TECHNIQUE: Real-time imaging, as well as color and pulse Doppler interrogation, were performed of the lower extremity deep veins from the inguinal ligament to the popliteal fossa, with documentation of the visualized calf veins. COMPARISON: None. FINDINGS: The common femoral, femoral, popliteal, and the visualized calf veins are normally compressible, and free of intraluminal thrombus. Color and pulse Doppler demonstrate normal phasic intraluminal flow. There is normal augmentation response to distal compression maneuver. IMPRESSION: No findings of right lower extremity deep venous thrombosis. Dictated by: Margo Agustin M.D. on 08/23/2023 at 16:41 Approved by: Margo Agustin M.D. on 08/23/2023 at 16:42
== END ==
PROVIDERS: PCP Physician Assistant; Referring Provider Physician Assistant; Visit Provider Physician Assistant
DX: M79.89 Other specified soft tissue disorders (principal)
CPT/HCPCS: 93971

== ENCOUNTER → 2023-11-26 09:25 | Outpatient (CLI) | payer MEDICARE, OTHER, SELFPAY ==
[2021-12-11 17:43] VITALS: BMI 30.2
[2023-11-26 10:58] LABS: Alanine Aminotransferase 23 IU/L (<50); Albumin 4.1 g/dL (3.5-5.0); Albumin Globulin Ratio 1.6 (1.0-2.8); Alkaline Phosphatase 70 U/L (38-126); Aspartate Aminotransferase 28 IU/L (17-59); BUN Creatinine Ratio 19.8 (6-22); Blood Urea Nitrogen 17 mg/dL (9-20); Calcium 9.5 mg/dL (8.4-10.2); Carbon Dioxide 29 mmol/L (22-32); Chloride 107 mmol/L (98-107); Cholesterol 130 mg/dL (140-199); Estimated Glomerular Filt Rate > 60 mL/min (>60); Globulin 2.5 g/dL (1.7-4.1); Glucose 99 mg/dL (80-110); HDL Cholesterol 60 mg/dL (40-60); HEMOLYSIS < 15 (0-50); LDL Cholesterol Calculated 54 mg/dL (<100); Potassium 3.9 mmol/L (3.4-5.1); Sodium 140 mmol/L (137-145); Total Protein 6.6 g/dL (6.3-8.2); Triglycerides 79 mg/dL (35-150)
== END ==
LOC: LAB 09:27
PROVIDERS: PCP Physician Assistant; Referring Provider Nurse Practitioner; Visit Provider Nurse Practitioner
DX: E78.5 Hyperlipidemia, unspecified (principal)
CPT/HCPCS: 36415; 80053; 80061

== ENCOUNTER 2023-11-27 11:43 | Emergency (ER) | payer MEDICARE, OTHER, SELFPAY ==
[2021-12-11 17:43] VITALS: BMI 30.2
[2023-11-27 11:49] VITALS: BP 143/78; PULSE 67; RESP 17; TEMP 36.7; O2SAT 99; BMI 32.5
--- NOTE | 2023-11-27 12:00 | DI.CT.S_ITS ---
PROCEDURE: CT KIDNEY URETER BLADDER (KUB) INDICATIONS: r/o kidney stone TECHNIQUE: Axial sections were acquired from the lung bases to the pubic symphysis. Coronal and sagittal reformats were performed. For radiation dose reduction, the following was used: automated exposure control, adjustment of mA and/or kV according to patient size. COMPARISON: [facility], CT, KIDNEY/ URETER/BLADDER, 11/05/2010, 13:50. FINDINGS: Image quality: Diagnostic. Lower Chest: No significant findings. URINARY: Right Kidney: Small lower pole punctate stone. Cystic changes of the kidney including indeterminate cyst in the lower pole. Right Ureter: No hydroureter. Left Kidney: Within the lower pole of the left kidney there are a few nonobstructing stones including a 1 cm stone with average density of 834 Hounsfield units. Smaller stone measures 3 mm in size. There is moderate left-sided hydronephrosis. There are multiple cystic structures within the kidney several with indeterminate densities. Left Ureter: Moderate proximal hydronephrosis. Left distal ureteral stone measuring 8 mm with average density of 530 Hounsfield units. Bladder: Normal wall thickness. No stones. ABDOMEN: Liver: A few subcentimeter hypodensities favored to represent hepatic cysts. Gallbladder: No radiopaque gallstones or wall thickening. Biliary ducts: No biliary dilation. Pancreas: No ductal dilation. Calcifications in the pancreas consistent chronic pancreatitis. Spleen: Size is within normal limits. Adrenal Glands: No adrenal nodules. Stomach and Bowel: Normal colonic caliber, without significant wall thickening. Numerous colonic diverticula without evidence of acute diverticulitis. Peritoneum: No abnormal intraperitoneal fluid. No free air. Ventral Wall: No hernia. Abdominal Nodes: No enlarged retroperitoneal or mesenteric lymph nodes. Vessels: Aorta and inferior vena cava are normal in size. PELVIS: Pelvic Organs: Prostatomegaly with coarse calcifications enlarged prominent seminal vesicles. Pelvic Nodes: Unremarkable. Miscellaneous: Left fat containing inguinal hernia.. Bones: Unremarkable. IMPRESSION: Right distal ureteral vesicular stone measuring 8 mm. Additional bilateral renal stones. Bilateral cystic appearing masses the bilateral kidneys with indeterminate densities which may reflect other etiologies. Recommend non emergent multiphasic CT versus MRI. Prostatomegaly. Sequela of chronic pancreatitis. Diverticulosis without evidence of acute diverticulitis. Dictated by: Sukhwinder Alfaro M.D. on 11/27/2023 at 12:07 Approved by: Sukhwinder Alfaro M.D. on 11/27/2023 at 12:16
[2023-11-27 12:13] VITALS: BP 132/84; PULSE 65; O2SAT 97
[2023-11-27 12:25] LABS: Add Manual Diff / Slide Review NO; Basophils Absolute Auto 0 /uL (0-100); Basophils Percent Auto 0.6 % (0-2); Eosinophils Absolute Auto 100 /uL (0-450); Eosinophils Percent Auto 0.8 % (2-4); Hematocrit 45.5 % (41-53); Hemoglobin 15.6 g/dL (13.5-17.5); Lymphocytes Absolute Auto 1000 /uL (1100-4500); Lymphocytes Percent Auto 11.6 % (25-40); Mean Corpuscular HGB Conc 34.3 % (30-36); Mean Corpuscular Hemoglobin 31.8 PG (26-34); Mean Corpuscular Volume 92.6 fL (80-100); Monocytes Absolute Auto 600 /uL (0-900); Monocytes Percent Auto 7.6 % (3-14); Neutrophils Absolute Auto 6500 /uL (1500-7000); Neutrophils Percent Auto 79.4 % (50-75); Platelet Count 136 X10^3/uL (150-400); Red Blood Cell Count 4.91 X10^6/uL (4.5-5.9); White Blood Cell Count 8.2 X10^3/uL (4.5-11.0)
[2023-11-27 12:30] VITALS: BP 141/89; PULSE 67; RESP 12; O2SAT 96
--- NOTE | 2023-11-27 12:31 | ED_ITS ---
HPI - Male Genitourinary General Chief complaint: Urogenital-Male Stated complaint: severe back pain, no known injury Time Seen by Provider: 11/27/23 12:03 Source: patient and family Mode of arrival: Ambulatory History of Present Illness HPI Narrative: 73-year-old male presents for 1 day of sudden onset low back pain. Pain is diffuse across his lower back but worse on the left-hand side. He states that this is somewhat similar to when he had a kidney stone many years ago, but last time the pain was located in the front of his abdomen and not his back. No medications taken at home prior to arrival because he has a knee replacement surgery scheduled in 4 days and he did not want any medications to potentially interfere with his surgery. Denies nausea, vomiting, abdominal pain, hematuria, dysuria, other complaints at this time. Related Data Home Medications Medication Instructions Recorded Confirmed amlodipine 10 mg tablet 10 mg PO QPM ##0 11/19/10 11/24/23 rndkqqmldps-ljs-chrfnrkzs-vitC 1 cap PO BID ##0 04/01/11 11/24/23 capsule (Glucosamine Complex-MSM capsule) salmon oil-omega-3 fatty acids 1,000 cap PO BID ##0 04/01/11 11/24/23 1,000 mg-200 mg capsule ([employer]-) carvedilol 25 mg tablet 12.5 mg PO BID 09/13/20 11/24/23 lisinopril 20 mg tablet 40 mg PO DAILY 09/13/20 11/24/23 amoxicillin 500 mg tablet 500 mg PO BID Chronic strep to 12/04/21 11/24/23 left leg aspirin 81 mg tablet,delayed 81 mg PO DAILY 09/01/22 11/24/23 release loratadine 10 mg tablet 10 mg PO DAILY 09/01/22 11/24/23 furosemide 20 mg tablet 20 mg PO DAILY 11/24/23 11/24/23 ibuprofen 600 mg tablet 600 mg PO QID PRN Pain 11/24/23 11/24/23 rosuvastatin 20 mg tablet 20 mg PO DAILY 11/24/23 11/24/23 Previous Rx's Medication Instructions Recorded oxycodone-acetaminophen 5 mg-325 1 tab PO Q6H PRN pain #14 tabs 11/27/23 mg tablet tamsulosin 0.4 mg capsule 0.4 mg PO DAILY #30 caps 11/27/23 Allergies Allergy/AdvReac Type Severity Reaction Status Date / Time No Known Drug Allergies Allergy Verified 11/27/23 11:49 Review of Systems Review of Systems Narrative: Negative except as noted above Patient History Medical History Ascending aorta dilatation CAD (coronary artery disease) COVID-19 virus infection (01/2022) Ventral hernia Eczema Kidney stones Diverticulosis 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 Obesity (BMI 30-39.9) Hypertension Atopic dermatitis Tinnitus High frequency hearing loss Primary thrombocytopenia Osteoarthritis Hyperlipemia, mixed Obstructive sleep apnea of adult (~2007) Chronic recurrent streptococcal erysipelas Surgical History History of cardiac cath (10/27/23) Hx of ventral hernia repair (10/06/22) History of total left knee replacement (12/11/21) History of right knee surgery History of left knee surgery History of surgery History of vasectomy (1983) Hx of right inguinal hernia repair Hx of left inguinal hernia repair Hx of colonoscopy History of cardiac cath (~2007) Social History marital status: details: Sita, of 45 years, 04/28/2017 number of children: 2 household members: spouse lives independently: Yes Smoking Status: Former smoker alcohol intake: current substance use type: marijuana Smoking Status: Former smoker alcohol intake frequency: a few times a month Substance Use Type: marijuana Exam Initial Vital Signs Initial Vital Signs: Vital Signs Temperature 98.1 F 11/27/23 11:49 Pulse Rate 67 11/27/23 11:49 Respiratory Rate 17 11/27/23 11:49 Blood Pressure 143/78 H 11/27/23 11:49 Pulse Oximetry 99 11/27/23 11:49 Oxygen Delivery Method Room Air 11/27/23 11:49 Const: Awake, alert, appears chronically unwell Cardiac: regular rate, regular rhythm RESP: unlabored, clear bilaterally, no wheezing GI: Soft, nontender, nondistended, no rebound, no guarding MSK back: Generalized lumbar tenderness not reproducible to palpation, no CVA tenderness bilaterally Skin: Warm, Dry, intact, no rashes Neuro: AO x3, CN II-XII grossly intact, moves all extremities Course Orders Ordered: Discontinued Medications Morphine Sulfate (Morphine 4 Mg/Ml Inj) 4 mg IV NOW ONE Stop: 11/27/23 12:32 Last Admin: 11/27/23 12:48 Dose: 4 mg Documented By: SHAZIA Vital Signs Vital signs: Vital Signs - 8 hr 11/27/23 11:49 11/27/23 12:13 11/27/23 12:13 Temperature 98.1 F Pulse Rate 67 65 Respiratory Rate 17 Blood Pressure 143/78 H 132/84 Pulse Oximetry 99 97 Oxygen Delivery Method Room Air 11/27/23 12:30 11/27/23 12:30 Temperature Pulse Rate 67 Respiratory Rate 12 Blood Pressure 141/89 H Pulse Oximetry 96 Oxygen Delivery Method MDM - Male Genitourinary Differential Diagnosis Differential diagnosis: Likely urinary tract infection, priapism and urethritis Lab Data 11/27/23 12:09 11/27/23 12:09 Labs: Lab Results 11/27/23 11/27/23 Range/Units 12:09 12:10 WBC 8.2 (4.5-11.0) X10^3/uL RBC 4.91 (4.5-5.9) X10^6/uL Hgb 15.6 (13.5-17.5) g/dL Hct 45.5 (41-53) % MCV 92.6 (80-100) fL MCH 31.8 (26-34) PG MCHC 34.3 (30-36) % RDW 14.0 (11.6-14.8) % Plt Count 136 L (150-400) X10^3/uL Neut % (Auto) 79.4 H (50-75) % Lymph % (Auto) 11.6 L (25-40) % Wood % (Auto) 7.6 (3-14) % Eos % (Auto) 0.8 L (2-4) % Baso % (Auto) 0.6 (0-2) % Neut # (Auto) 6500 (9054-9959) /uL Lymph # (Auto) 1000 L (3626-8987) /uL Wood # (Auto) 600 (0-900) /uL Eos # (Auto) 100 (0-450) /uL Baso # (Auto) 0 (0-100) /uL Sodium 140 (137-145) mmol/L Potassium 4.3 (3.4-5.1) mmol/L Chloride 106 (98-107) mmol/L Carbon Dioxide 29 (22-32) mmol/L BUN 19 (9-20) mg/dL Creatinine 0.88 (0.66-1.25) mg/dL Estimated GFR > 60 (>60) mL/min BUN/Creatinine Ratio 21.6 (6-22) Glucose 118 H (80-110) mg/dL Calcium 9.5 (8.4-10.2) mg/dL Total Bilirubin 0.9 (0.2-1.3) mg/dL AST 28 (17-59) IU/L ALT 23 (<50) IU/L Alkaline Phosphatase 77 (38-126) U/L Total Protein 7.5 (6.3-8.2) g/dL Albumin 4.5 (3.5-5.0) g/dL Globulin 3.0 (1.7-4.1) g/dL Albumin/Globulin Ratio 1.5 (1.0-2.8) Urine Color Yellow Urine Appearance Clear Urine pH 6.0 (4.5-8.0) Ur Specific [place] <=1.005 (1.000-1.035) Urine Protein Negative (Negative) Urine Glucose (UA) Negative (Negative) g/dL Urine Ketones Negative (NEGATIVE) Urine Occult Blood 2+ H (Negative) Urine Nitrate Negative (Negative) Urine Bilirubin Negative (NEGATIVE) Urine Urobilinogen 0.2 (0.2) E.U./dL Ur Leukocyte Esterase Negative (NEGATIVE) Urine RBC 0-1/hpf (0-5/HPF) Urine WBC 0-1/hpf (0-5/HPF) Ur Squamous Epith Cells None seen (0-5/HPF) Urine Bacteria None seen (None) Ur Culture Indicated? Cult not indicated Vol Urine Centrifuged 10ml (spun) Urine Dip Bedside Urine Glucose Negative Bedside Urine Bilirubin - Negative Bedside Urine Ketone - Negative Urine Specific [place] 1.010 Bedside Urine Occult Blood ++ Bedside Urine pH 6.0 Bedside Urine Protein - Negative Bedside Urine Urobilinogen - Negative Bedside Urine Nitrite - Negative Bedside Urine Leukocytes - Negative Esterase Imaging Data CT scan - abdomen/pelvis: Radiologist's Impression: PROCEDURE: CT KIDNEY URETER BLADDER (KUB) INDICATIONS: r/o kidney stone TECHNIQUE: Axial sections were acquired from the lung bases to the pubic symphysis. Coronal and sagittal reformats were performed. For radiation dose reduction, the following was used: automated exposure control, adjustment of mA and/or kV according to patient size. COMPARISON: [facility], CT, KIDNEY/ URETER/BLADDER, 11/05/2010, 13:50. FINDINGS: Image quality: Diagnostic. Lower Chest: No significant findings. URINARY: Right Kidney: Small lower pole punctate stone. Cystic changes of the kidney including indeterminate cyst in the lower pole. Right Ureter: No hydroureter. Left Kidney: Within the lower pole of the left kidney there are a few nonobstructing stones including a 1 cm stone with average density of 834 Hounsfield units. Smaller stone measures 3 mm in size. There is moderate left-sided hydronephrosis. There are multiple cystic structures within the kidney several with indeterminate densities. Left Ureter: Moderate proximal hydronephrosis. Left distal ureteral stone measuring 8 mm with average density of 530 Hounsfield units. Bladder: Normal wall thickness. No stones. ABDOMEN: Liver: A few subcentimeter hypodensities favored to represent hepatic cysts. Gallbladder: No radiopaque gallstones or wall thickening. Biliary ducts: No biliary dilation. Pancreas: No ductal dilation. Calcifications in the pancreas consistent chronic pancreatitis. Spleen: Size is within normal limits. Adrenal Glands: No adrenal nodules. Stomach and Bowel: Normal colonic caliber, without significant wall thickening. Numerous colonic diverticula without evidence of acute diverticulitis. Peritoneum: No abnormal intraperitoneal fluid. No free air. Ventral Wall: No hernia. Abdominal Nodes: No enlarged retroperitoneal or mesenteric lymph nodes. Vessels: Aorta and inferior vena cava are normal in size. PELVIS: Pelvic Organs: Prostatomegaly with coarse calcifications enlarged prominent seminal vesicles. Pelvic Nodes: Unremarkable. Miscellaneous: Left fat containing inguinal hernia.. Bones: Unremarkable. IMPRESSION: Right distal ureteral vesicular stone measuring 8 mm. Additional bilateral renal stones. Bilateral cystic appearing masses the bilateral kidneys with indeterminate densities which may reflect other etiologies. Recommend non emergent multiphasic CT versus MRI. Prostatomegaly. Sequela of chronic pancreatitis. Diverticulosis without evidence of acute diverticulitis. Dictated by: Sukhwinder Alfaro M.D. on 11/27/2023 at 12:07 Approved by: Sukhwinder Alfaro M.D. on 11/27/2023 at 12:16 [facility] Narrative Medical decision making narrative: Lumbar back pain similar to when patient previously had a kidney stone. Currently resting comfortably in bed no acute distress but is complaining of lumbar pain. Laboratory work, CT imaging, urinalysis ordered. Morphine ordered for pain. Laboratory work is reviewed, no significant abnormality. Patient has a leukocytosis, electrolytes are within normal limits, creatinine 0.88, which is his baseline. Urinalysis shows 2+ blood without evidence of infection. Noncontrast CT of the abdomen and pelvis is significant for an 8 mm right distal ureteral vesicular stone. Incidental note made of bilateral cystic appearing masses in the kidneys, a nonemergent CT versus MRI was recommended for assessment in the future. Patient informed of all lab and imaging findings at bedside, he states that he was not seen a urologist in many years in his previous urologist moved away and retired. Pain medications and Flomax ordered. Referral made to local urologist. Patient informed of the abnormal findings in his kidneys and recommended close PCP follow up. ED return precautions discussed at bedside. Patient expressed understanding of the plan and is in agreement at this time. All questions answered at the time of discharge. Discharge Plan Departure Patient Disposition: Home Clinical Impression: Renal colic, Abnormal CT scan, kidney Instructions: DI for Kidney Stones Activity Restrictions/Additional Instructions: Your imaging today was significant for a stone on the right-hand side. Radiology also noted that you have abnormally appearing kidneys. I highly recommend following up with your primary care physician for further investigation of these cystic findings. Pain medications and Flomax have been sent to your pharmacy. Follow up with Urology, a referral has been provided. Prescriptions: New oxycodone-acetaminophen 5-325 mg tablet 1 tab PO Q6H PRN (Reason: pain) Qty: 14 0RF tamsulosin 0.4 mg capsule 0.4 mg PO DAILY Qty: 30 0RF No Action amlodipine 10 mg Tablet 10 mg PO QPM Qty: 0 Glucosamine Complex-MSM Capsule 1 cap PO BID Qty: 0 [employer]-1000 1,000-200 mg Capsule 1,000 cap PO BID Qty: 0 loratadine 10 mg tablet 10 mg PO DAILY aspirin 81 mg tablet,delayed release (DR/EC) 81 mg PO DAILY amoxicillin 500 mg Tablet 500 mg PO BID furosemide 20 mg Tablet 20 mg PO DAILY rosuvastatin 20 mg Tablet 20 mg PO DAILY ibuprofen 600 mg tablet 600 mg PO QID PRN (Reason: Pain) lisinopril 20 mg tablet 40 mg PO DAILY carvedilol 25 mg tablet 12.5 mg PO BID Rx Instructions: must administer with a meal/food Referrals: Sukhwinder Tello MD [Physician] - Teri Hendrickson PA-C [Primary Care Provider] - Stand Alone Forms: Patient Portal/API
[2023-11-27 12:37] LABS: Alanine Aminotransferase 23 IU/L (<50); Albumin 4.5 g/dL (3.5-5.0); Albumin Globulin Ratio 1.5 (1.0-2.8); Alkaline Phosphatase 77 U/L (38-126); Aspartate Aminotransferase 28 IU/L (17-59); BUN Creatinine Ratio 21.6 (6-22); Bilirubin Total 0.9 mg/dL (0.2-1.3); Blood Urea Nitrogen 19 mg/dL (9-20); Calcium 9.5 mg/dL (8.4-10.2); Carbon Dioxide 29 mmol/L (22-32); Chloride 106 mmol/L (98-107); Estimated Glomerular Filt Rate > 60 mL/min (>60); Glucose 118 mg/dL (80-110); HEMOLYSIS 16 (0-50); Potassium 4.3 mmol/L (3.4-5.1); Sodium 140 mmol/L (137-145); Total Protein 7.5 g/dL (6.3-8.2)
[2023-11-27 12:47] LABS: Appearance Urine UA CLEAR; Bilirubin Urine UA NEGATIVE (NEGATIVE); Color Urine UA YELLOW; Glucose Urine UA NEGATIVE (Negative); Ketones Urine UA NEGATIVE (NEGATIVE); Leukocyte Esterase Urine UA NEGATIVE (NEGATIVE); Nitrite Urine UA NEGATIVE (Negative); Occult Blood Urine UA 2+ (Negative); Protein Urine UA NEGATIVE (Negative); Specific Gravity Urine UA <=1.005 (1.000-1.035); Urobilinogen Urine UA 0.2 E.U./dL (0.2)
[2023-11-27] MEDS: MORPHINE 4 MG/ML INJ IV (12:48)
[2023-11-27 12:51] VITALS: BP 143/83; PULSE 61; RESP 12; O2SAT 98
[2023-11-27 13:00] VITALS: BP 138/75; PULSE 57; RESP 16; O2SAT 98
[2023-11-27 13:03] LABS: Bacteria Urine None Seen; Culture Indicated Urine Cult Not Indicated; RBC Urine 0-1/HPF (0-5/HPF); Squamous Epithelial Cell Urine None Seen (0-5/HPF); Urine Volume 10mL (spun); WBC Urine 0-1/HPF (0-5/HPF)
[2023-11-27 13:30] VITALS: BP 131/85; PULSE 59; RESP 14; O2SAT 97
== END 2023-11-27 13:44 | disposition home or self-care (01) ==
PROVIDERS: Emergency Provider Emergency Medicine; PCP Physician Assistant
DX: N20.0 Calculus of kidney (principal); R93.422 Abnormal radiologic findings on diagnostic imaging of left kidney; R93.421 Abnormal radiologic findings on diagnostic imaging of right kidney
CPT/HCPCS: 36415; 74176; 80053; 81001; 81003; 85025; 96374; 99284; J2270

== ENCOUNTER 2023-12-01 06:04 | Day surgery (SDC) | payer MEDICARE, OTHER, SELFPAY ==
[2021-12-11 17:43] VITALS: BMI 30.2
[2023-11-24 13:45] VITALS: BMI 33.2
[2023-12-01] VITALS (18 sets, daily range): BP systolic 129–159; BP diastolic 78–99; PULSE 60–80; RESP 10–17; TEMP 36.1–37.1; O2SAT 90–99; BMI 33.2
--- NOTE | 2023-12-01 06:00 | DI.RAD.S_ITS ---
PROCEDURE: XR KNEE RT 1TO2V INDICATIONS: post-op TKA right TECHNIQUE: 2 view(s) of the knee acquired. COMPARISON: [facility], CR, XR KNEE LT 1TO2V, 12/11/2021, 15:45. FINDINGS: Bones: Patient is status post knee joint arthroplasty. Hardware components are in expected positions. Visualized bony structures are intact. Soft tissues: Overlying postoperative changes are noted. IMPRESSION: Expected post-operative appearance of a knee arthroplasty. Dictated by: Kaleb Reaves M.D. on 12/01/2023 at 13:59 Approved by: Kaleb Reaves M.D. on 12/01/2023 at 13:59
[2023-12-01] MEDS: LACTATED RINGERS 1,000 ML 42 ML IV ×3 (07:09→10:30)
[2023-12-01] MEDS: ACETAMINOPHEN 325 MG TABLET 975 MG PO (07:14)
[2023-12-01] MEDS: FAMOTIDINE 20 MG/2 ML VIAL IV (07:16)
--- NOTE | 2023-12-01 07:19 | PM.PREOP ---
Pre-operative Note Interval Note History & Physical reviewed/Exam performed by Physician: Yes Changes to H&P: No
--- NOTE | 2023-12-01 07:32 | P.OP_ITS ---
Operative Date/Time/Diagnoses Date of procedure: 12/01/23 Time of procedure: 08:00 Pre-op diagnosis: Right knee arthritis M17.11 Post-op diagnosis: same Procedure & Clinicians Procedure: Right total knee arthroplasty CPT code 32595 Robotic assistance surgery [id number] Imageless computer assisted navigation [id number] Same procedure as scheduled: Yes Indications: The patient is a 73 year old male with end-stage [id number] knee arthritis. The patient has a significant right varus knee arthritis. They have failed conservative treatment with activity modifications, injections, physical therapy and bracing. They has been indicated for right total knee replacement. The risks and benefits of the procedure have been discussed with the patient even opportunity to ask questions. The risks of surgery include but are not limited to infection, malunion, nonunion, fracture, loosening, persistence of pain, damage to nerves and blood vessels, need for additional procedures, DVT, PE, cardiopulmonary complications and . The patient expressed a thorough understanding of the risks and benefits of surgery and has elected to proceed. Consent was signed in the office. During the operation the services of physician surgical first assistant were medically indicated and necessary to provide the exposure of the operative site for the surgical procedure and to maintain the limb in a proper position to carry out the procedure safely and efficiently. Without a qualified energy assistant being present this would extend the operative procedure and would have made the procedure more technically difficult to perform. The surgical first assistant was medically necessary for the proper positioning, retraction and manipulation of the limb, proper exposure, and manipulation of the tissue for implantation implants and closure. Surgeon: Fatuma Mills Rand Sewer: Margarito Aparicio Anesthesia Type: Spinal, Peripheral nerve block and Local Operative Notes Findings: Tricompartmental varus pattern knee arthritis, right, large osteophytes degenerative meniscal tearing. Closure Type: primary Specimen(s): none sent Prosthetic devices, grafts, tissues, transplants, or devices: Arana [employer] Nephew Journey II BCS total knee arthroplasty Femur right size 8cobalt chromium Tibia size 8 Poly size 9 mm Patella size nancy II around 41 mm Estimated Blood Loss (mL): 100 Blood products transfused: none Tourniquet time (min): 133 Procedure in detail: Patient was seen in the preoperative area where the patient and site of surgery were identified in the operative knee was marked informed consent confirmed. This was the right knee. Patient received the appropriate preoperative antibiotics this was 2 g of Ancef. And other preoperative medications and was taken to the operating room placed on operating table in the supine position. Spinal anesthetic were administered. The operative extremity was then prepped and draped in the standard sterile fashion with a nonsterile tourniquet high on the thigh. Patient was placed on the green foam bolsters. A lateral post was placed at the level of the proximal thigh /trochanter area as a lateral post. Formal time-out procedure was performed confirming the patient's side and site of surgery and administration of appropriate preoperative antibiotics and implants were in the room accounted for. All were in agreement. Patient received a preoperative dose of tranexamic acid and then a 2nd dose at tourniquet release Patient was prepped and draped in the standard sterile fashion and the foot was placed into the leg pierce. This was taken into high flexion and the incision was marked out over the anterior knee to the level of the medial tubercle tubercle. The Esmarch was then used for exsanguination and the tourniquet was inflated to 250 mmHg. Was made through the skin and subcutaneous tissue in high flexion this was then brought down into 30? of flexion for the medial parapatellar arthrotomy. A marker pen was used to rosa the arthrotomy site for later repair. Joint fluid was evacuated. The anterior osteophytes and soft tissues were removed. There was extensive large osteophytes around the patellofemoral joint. Routine medial release was initially made along the medial proximal tibia with Bovie. The patella was 1st cut using the saw sized and prepped and then subluxed throughout the case and protected. The leg was then taken into extension and the patella was everted and the patella was cut to accommodate the patellar button. This was sized to a 41 mm button for a 9 mm thickness to recreate the original dimensions of the patella. Poly was removed and the protector replaced and the patella was subluxed and the knee was taken back up into flexion and attention was returned to the femur. Then the rotational landmarks of Whitesides line and the trans epicondylar axis were marked on the femur with electrocautery. ACL and PCL were released. Then the Cori robotic pins were placed into the femur and tibia and the race set up. Landmarks were established and the robotic planning was commenced. Plan was developed and improved and adjusted as necessary to create a balanced knee with 1-3 mm of laxity. Initial deformity was 7? varus Planning corrected to 2? varus Final achieved alignment 1 degree varus External rotation femur 3? Plan was satisfactory the bur was used to remove the distal femur then the 5 in 1 cutting block was applied complete the femur cuts. Attention was then turned to the tibia and the tibial resection was made in accordance with the robotic planning. The trials were placed. And the femoral notch was cut a standard fashion using Reamer then slap hammer. The knee was trialed and the checked. The knee was felt to be a little tight with a 9 mm poly trial. Therefore the implants were removed and the awl bur technique was used to take 1 more mm off the tibia. Following this the trials were replaced and a robotic guidance was used to assess the range of motion and gap balancing again. The final alignment was 1 degree of varus. The gaps were balanced with a proximally 2 mm of laxity and range of motion was full 0 to greater than 125. Knee was balanced in flexion extension. Full range of motion was obtained. The knee was stable to varus and valgus stress test. The rotation femoral trial was marked Bovie on the bone and checked with a long urszula. This was in line with the tibial crest and 2nd toe. The tibia was then finished with a drill and flange cut and then The trial implants were removed. Then in extension the posterior capsule was injected with a mixture of 40 mL of 0.25% Marcaine and 20 mL of Exparel care to avoid excessive injection posterior laterally. The remainder of this was saved for the capsule and subcutaneous tissue and placed during cement curing. The wound and bone was irrigated with pulsatile lavage. This was then dried with a sponge. The components were verified and opened and the cement was mixed. Cement was applied to the components and then to the bone then the tibia was cemented in place 1st followed by the femur then the patella. Excess cement was removed with care looking around the back of the knee. Osteotome was used to remove some residual very posterior osteophyte. Remainder of the injection was injected around the capsule. 9 mm trial poly was placed back in the leg was placed into extension for the patellar cementing. After this was cured approximately 15 minutes later and the dilute Betadine solution was placed for at least 3 minutes in the wound this was then irrigated out and the final poly was placed. This was a 9 mm poly. The tourniquet was released hemostasis was achieved. Final 1g of tranexamic acid was given IV at the time of tourniquet release. The capsule was closed with 1. Ethibond suture. Followed by a running Quill stitch. Subcutaneous layer was closed with 3-0 Vicryl suture. Skin was closed with a running V lock suture Stratafix Monocryl type suture and Dermabond. An Aquacel dressing was placed . An Alex wrap was applied. Anesthetic was terminated the patient was woken from anesthesia and taken to recovery room in good condition. There no immediate complications from this procedure. The patient will be maintained on a standard total knee replacement protocol with weight-bearing as tolerated. Complications: none Post-operative Condition: stable Disposition: PACU Plan for aftercare: Weightbear as tolerated, immediate range of motion. Standard total knee arthroplasty postop protocol. Aspirin 81 mg b.i.d. for 6 weeks for DVT prophylaxis. We will follow up in 2 weeks in clinic with the physician energy assistant for wound check in 6 weeks with a surgeon in clinic for repeat x-rays.
[2023-12-01] MEDS: CEFAZOLIN 2 GM/100 ML PREMIX 100 ML IV ×2 (07:45→15:31)
--- NOTE | 2023-12-01 07:53 | SUR.PREOP ---
Time out Block start time 0738. Monitoring initiated and maintained throughout procedure. Oxygen given per anesthesiologist instructions. Patient remained stable throughout procedure, no adverse reactions noted. Block end time 0743 .
[2023-12-01] MEDS: TRANEXAMIC ACID 1,000 MG VIAL 2000 MG INJ ×2 (08:05→10:34)
--- NOTE | 2023-12-01 08:26 | SUR.OPER ---
Supine on padded OR bed. Pillow under head, arms secured on padded armboards <90 degree abduction. Safety belt across torso. Non-operative leg secured with tape over blanket over lower leg. Operative leg secured in Daniele positioner. Foam padded brace at thigh of operative leg.
[2023-12-01] MEDS: BUPIVACAINE 0.25% (PF) 30 ML, EPINEPHrine 0.15 MG INJ (08:35)
[2023-12-01] MEDS: BUPIVACAINE LIPOSOME 266 MG/20 ML VIAL INJ (08:40)
--- NOTE | 2023-12-01 08:55 | SUR.OPER ---
Bilateral THOMPSON in specimen cup. Will be going to PACU with pt after surgery.
[2023-12-01] MEDS: HYDROMORPHONE 1 MG INJ IV (11:40)
[2023-12-01] MEDS: OXYCODONE IR 5 MG TABLET PO (11:41)
[2023-12-01] MEDS: ONDANSETRON 4 MG/2 ML INJ IV (11:41)
[2023-12-01] MEDS: hydrOXYzine 50 MG/ML INJ 25 MG IM (11:41)
[2023-12-01] MEDS: ACETAMINOPHEN 325 MG TABLET 650 MG PO ×2 (13:16→18:32)
[2023-12-01] MEDS: IBUPROFEN 400 MG TABLET PO ×3 (13:16→20:50)
--- NOTE | 2023-12-01 13:47 | PC.NURSE ---
Pt to room 220 via bed from PACU at 1235. Pt is awake, alert, and oriented x 3. Denies nausea or shortness of pain. States pain is 4/10 to right knee but improving and ice is in place to knee. Family is at the bedside. Pt oriented to room, call light, bed controls, and tv controls. SCD's on and running. IVF infusing as ordered. Bed alarm on for safety. Pt agrees to call for assistance as needed.
--- NOTE | 2023-12-01 16:00 | PT.IIE ---
Current Diagnoses Unilateral primary osteoarthritis, right knee (12/01/23) Surgery Performed Operation Date: 12/01/23 07:45 Actual Procedures p Total Knee Arthroplasty - Robot(Right) - Fatuma Mills MD Surgical History (Last Reviewed 11/28/23 @ 07:42 by Katelyn Soto MD) History of cardiac cath (~2007) History of cardiac cath (10/27/23) History of left knee surgery History of right knee surgery History of surgery History of total left knee replacement (12/11/21) History of vasectomy (1983) Hx of colonoscopy Hx of left inguinal hernia repair Hx of right inguinal hernia repair Hx of ventral hernia repair (10/06/22) Medical History (Last Reviewed 11/28/23 @ 07:42 by Katelyn Soto MD) Ascending aorta dilatation Atopic dermatitis CAD (coronary artery disease) Chronic recurrent streptococcal erysipelas COVID-19 virus infection (01/2022) Diverticulosis Eczema High frequency hearing loss Hyperlipemia, mixed Hypertension Kidney stones 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 Obesity (BMI 30-39.9) Obstructive sleep apnea of adult (~2007) Osteoarthritis Primary thrombocytopenia Tinnitus Ventral hernia Physical Therapy Inpatient Evaluation/Re-Eval M1 PT/OT-IP Prior Functional Status Start: 12/01/23 17:36 Freq: NEEDED Status: Active Protocol: Document 12/01/23 16:00 AB (Rec: 12/01/23 17:48 AB [id number]) Medical Review Prior Functional Status Medical History Reviewed Yes Communication able to make needs known Mobility and Gait pt stated that he was independent with all mobilities and ambulation without AD Social History Household Members spouse Living Arrangements House Number of Floors (Floors) One Floor Number of Stairs To Enter/Railing? 3 steps bilateral wide rails to enter the house (can only hold on to one rail at a time) Home Environment Standard Height Toilet,Walk in Shower,Built-In Shower Seat Home Equipment Front Wheel Walker,Straight Cane,Hand Held Shower,Grab Bars Near Toilet M2 PT-IP Current Condition Start: 12/01/23 17:36 Freq: NEEDED Status: Active Protocol: Document 12/01/23 16:00 AB (Rec: 12/01/23 17:48 AB [id number]) Physical Therapy Current Condition Current Condition Evaluation Date 03/27/24 Treatment Diagnosis s/p R TKA; difficulty in walking Onset Date 12/01/23 M3 PT-IP Subjective Start: 12/01/23 17:36 Freq: NEEDED Status: Active Protocol: Document 12/01/23 16:00 AB (Rec: 12/01/23 17:48 AB [id number]) Subjective Physical Therapy Visit Type Type Initial Evaluation Visit Start Time 16:00 Visit Stop Time 16:50 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 of 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 Visits 0 Physical Therapy Visit Comments Patient Comments agreeable to do PT Therapy Pain Assessment Pain When Pain Assessed At Rest Pain Present Pain Present Pain Reported Location right knee Intensity 1 Scale Used Numeric (0 - 10) Pain Management Techniques Apply Cold,Distraction, Elevation,Modification of Treatment,Re-positioning, Timing of Activity with Medications M4 PT-IP Mobility and Gait Start: 12/01/23 17:36 Freq: NEEDED Status: Active Protocol: Document 12/01/23 16:00 AB (Rec: 12/01/23 17:48 AB [id number]) PT-Bed Mobility Assessment Supine to Sit Supine to Sit Standby Assistance PT-Transfer Assessment Sit to and From Stand Sit to and from Stand Contact Guard Assistance,1 Person Assistance,Use of Upper Extremities Equipment Transfer Assistive Device Gait Belt,Front Wheeled Walker Orthotic/Prosthetic Devices or Brace: No Transfers Transfer Destination Bed,Toilet Transfer Technique ambulated Transfer Ability Level of Assist Contact Guard Assistance,1 Person Assistance,Use of Upper Extremities Comments Mobility Comments pt sitting on EOB with NAC. PT took over pt's care. pt agreed to do PT. obtained PLOF and home set up from pt. spouse arrived. post-op folder provided to pt and reviewed contents. reviewed HEP. BP checked: 120/64 pt completed sit <>supine SBA. pt able to sit on EOB SBA. pt requested to use the toilet . completed sit to stand from EOB CGA. ambulated to the toilet using FWW CGA and cues for R quads activation. pt was able to maintain standing sBA to CGA using FWW for support while using the toilet . pt ambulated towards the sink using FWW CGA. able to maintain standing using FWW for support SBA while completing handwashing. pt ambulated to the chair using FWW CGA. agreed to stay up on the chair. positioned pt on the chair. call light and table placed within reach. caregiver training set up at 1030 am tomorrow. Gait Assessment Gait Gait Assistance Required: Contact Guard Assist,1 Person Assist Distance (Feet) 20 Able to Maintain Weight Bearing Status Yes During Gait Assistive Devices Assistive Device Gait Belt,Front Wheeled Walker Orthotic/Prosthetic Devices or Brace: No Gait Deviations General Gait Pattern Antalgic,Decreased Stride Length,Decreased Feet Clearance Factors Limiting Gait Function Factors Limiting Gait Function Decreased Activity Tolerance, Decreased Strength,Limited Range of Motion,Pain,Poor Balance,Poor Safety Awareness PT-Balance Assessment Sitting Balance and Reactions Static Sitting Balance Ability Normal Dynamic Sitting Balance Ability Good Standing Balance and Reactions Static Standing Balance Ability Good Dynamic Standing Balance Ability Fair Device Used FWW M5 PT-IP Objective Assessments Start: 12/01/23 17:36 Freq: NEEDED Status: Active Protocol: Document 12/01/23 16:00 AB (Rec: 12/01/23 17:48 AB [id number]) Orientation Orientation/Cognition Level of Alertness Alert Orientation Name,Place,Situation Language Function Ability Hard of Hearing Safety Awareness Decreased Safety Awareness Memory Description Short Term Impaired Gross Range of Motion Lower Extremity ROM Assessment Right Impaired Impairments R knee flexion: ~ 70 deg R knee extension: ~ 10 deg less to 0 Strength Lower Extremity Strength Assessment Right Impaired Hip 4-/5 Knee 3+/5 Sensation Assessment Sensation Gross Sensation WNL Muscle Tone Muscle Tone WNL Yes M6 PT-IP Treatment Start: 12/01/23 17:36 Freq: NEEDED Status: Active Protocol: Document 12/01/23 16:00 AB (Rec: 12/01/23 17:48 AB [id number]) Physical Therapy Treatment Exercises Exercises Heel Slides Education Education Provided Precautions,Weight Bearing Status,Post-Op Packet,Safety M7 PT-IP Assessment and Plan Start: 12/01/23 17:36 Freq: NEEDED Status: Active Protocol: Document 12/01/23 16:00 AB (Rec: 12/01/23 17:48 AB [id number]) PT Summary Assessment and Plan Potential Rehabilitation Potential Fair Status of Condition at Evaluation Evolving Summary Impairments Pain,ROM,Strength,Balance, Coordination,Sensation,Tone, Cognition,Bed Mobility, Transfers,Gait,Activity Tolerance Assessment Summary pt is a 73 y/o M s/p R TKA POD 0. pt is WBAT on RLE. pt requiring CGA with mobility using FWW and will likely progress during hospital stay. caregiver training set up for tomorrow at 1030 am. stair climbing will be completed prior to d/c. pt has 3 steps 1 rail to enter the house. will continue to assess progress Goals Bed Mobility Goal Independent Transfer Goal Independent,Front Wheeled Walker Gait Goal Independent,Front Wheel Walker Gait Distance 300 Other Goals improve transfers and ambulation using LRAD ~ 300 ft mod I up/down 3 steps 1 rail mod I Days to Meet Goals 5 Frequency of Treatment Frequency Of Treatment Twice a Day Treatment Plan Physical Therapy Treatment Plan Bed Mobility Training,Transfer Training,Gait Training, Therapeutic Exercise,Balance Retraining,Post Op Education, Discharge Planning,Hot or Cold Pack,Neuromuscular Re-ed, Coordination Retraining,Manual Therapy Weight Bearing Status Weight Bearing Status Weight Bear as Tolerated Allowed Weight Bearing Amount (enter % RLE WBAT or #) (%) Recommendations To Nursing Amount of Assist Needed 1 Person Assist Discharge Recommendations PT Discharge Recommendations Home with Assistance, Outpatient PT Transportation Needs at Discharge Private Vehicle
[2023-12-01] MEDS: AMLODIPINE 5 MG TABLET 10 MG PO (16:12)
[2023-12-01] MEDS: DOCUSATE 100 MG CAPSULE PO (20:50)
[2023-12-01] MEDS: carvediloL 12.5 MG TABLET PO (20:50)
[2023-12-01] MEDS: AMOXICILLIN 250 MG CAPSULE 500 MG PO (20:50)
[2023-12-01] MEDS: ASPIRIN EC 81 MG TABLET PO (20:50)
[2023-12-02] MEDS: ACETAMINOPHEN 325 MG TABLET 650 MG PO ×2 (00:21→05:53)
[2023-12-02] MEDS: IBUPROFEN 400 MG TABLET PO ×3 (00:22→08:26)
[2023-12-02] MEDS: CEFAZOLIN 2 GM/100 ML PREMIX 100 ML IV (00:22)
[2023-12-02 00:41] VITALS: BP 132/72; PULSE 70; RESP 17; TEMP 36.3; O2SAT 95
[2023-12-02 04:51] LABS: Hematocrit 35.8 % (41-53); Hemoglobin 12.6 g/dL (13.5-17.5)
[2023-12-02 07:00] VITALS: BP 137/75; PULSE 70; RESP 17; TEMP 36.2; O2SAT 95
--- NOTE | 2023-12-02 07:42 | P.DS_ITS ---
History of Present Illness History of Present Illness Date Patient Seen: 12/02/23 Time Patient Seen: 07:30 Chief complaint: OPB Narrative: Procedure: Right total knee arthroplasty CPT code 74474 Robotic assistance surgery [id number] Imageless computer assisted navigation [id number] Same procedure as scheduled: Yes Indications: The patient is a 73 year old male with end-stage [id number] knee arthritis. The patient has a significant right varus knee arthritis. They have failed conservative treatment with activity modifications, injections, physical therapy and bracing. They has been indicated for right total knee replacement. The risks and benefits of the procedure have been discussed with the patient even opportunity to ask questions. The risks of surgery include but are not limited to infection, malunion, nonunion, fracture, loosening, persistence of pain, damage to nerves and blood vessels, need for additional procedures, DVT, PE, cardiopulmonary complications and . The patient expressed a thorough understanding of the risks and benefits of surgery and has elected to proceed. Consent was signed in the office. During the operation the services of physician assistant professor of philosophy were medically indicated and necessary to provide the exposure of the operative site for the surgical procedure and to maintain the limb in a proper position to carry out the procedure safely and efficiently. Without a qualified financial assistant being present this would extend the operative procedure and would have made the procedure more technically difficult to perform. The assistant professor of philosophy was medically necessary for the proper positioning, retraction and manipulation of the limb, proper exposure, and manipulation of the tissue for implantation implants and closure. Surgeon: Fatuma Mills Grain Drier Operator: Margarito Aparicio Anesthesia Type: Spinal, Peripheral nerve block and Local Operative Notes Findings: Tricompartmental varus pattern knee arthritis, right, large osteophytes degenerative meniscal tearing. Closure Type: primary Specimen(s): none sent Prosthetic devices, grafts, tissues, transplants, or devices: Arana [employer] Nephew Journey II BCS total knee arthroplasty Femur right size 8cobalt chromium Tibia size 8 Poly size 9 mm Patella size nancy II around 41 mm Estimated Blood Loss (mL): 100 Blood products transfused: none Tourniquet time (min): 133 Discharge Providers Provider Date of admission: 12/01/2023 Discharge Date: 12/02/23 Primary care physician: Teri Hendrickson PA-C Consults: 12/01/23 12:31 Consult to Discharge Planning Routine Comment: Consult to Occupational Therapy Evaluate & Treat Comment: Physician Instructions: Evaluate and treat Consult to Physical Therapy Evaluate & Treat Comment: Physician Instructions: postop TKA protocol Discharge provider: Margarito Aparicio PA-C Summary Hospital Course Discharge Diagnosis: Status post right knee total arthroplasty Hospital Course: Multimodal pain control. Physical therapy Status at Discharge Cognitive/behavioral status at discharge: oriented Functional status at discharge: uses cane/walker Overall status at discharge: patient is back to baseline Time Spent with Patient Time spent: Less than 30 minutes Exam Vital Signs (past 8 hours): - 12/02/23 00:41 12/02/23 07:00 Temperature 97.3 F L 97.1 F L Pulse Rate 70 70 Respiratory Rate 17 17 Blood Pressure 132/72 137/75 Pulse Oximetry 95 95 Oxygen Flow Rate 0 0 Oxygen Delivery Method Room Air Oxygen Flow Rate 0 Narrative Exam Narrative: Patient is found sitting upright comfortably in his chair. Dressing is intact with no signs of drainage. Sensation grossly intact to light touch over the right lower extremity. No edema noted. Able to dorsiflex and plantar flex against resistance. 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 Obesity (BMI 30-39.9) Hypertension Atopic dermatitis Tinnitus High frequency hearing loss Primary thrombocytopenia Osteoarthritis Hyperlipemia, mixed Obstructive sleep apnea of adult (~2007) Chronic recurrent streptococcal erysipelas Surgical History History of cardiac cath (10/27/23) Hx of ventral hernia repair (10/06/22) History of total left knee replacement (12/11/21) History of right knee surgery History of left knee surgery History of surgery History of vasectomy (1983) Hx of right inguinal hernia repair Hx of left inguinal hernia repair Hx of colonoscopy History of cardiac cath (~2007) Social History marital status: details: Sita, of 45 years, 04/28/2017 number of children: 2 household members: spouse lives independently: Yes Smoking Status: Former smoker alcohol intake: current substance use type: marijuana Discharge Assessment & Plan Assessment and Plan Assessment: Status post right knee total arthroplasty Plan of Treatment: Discharge to home with family Patient already has been prescribed postoperative medications and instructed on how to use them. ASA 81mg bid for 6 weeks for DVT prophylaxis. Start outpatient physical therapy in 5-10 days. Activity and weight-bearing as tolerated. Follow up with [facility] in 2 weeks for wound check. Discharge Plan Discharge Plan Patient Disposition: Home Provider Discharge Comment: DC pending PT approval Discharge orders & Medications Discharge Orders: Discharge (Order); Ordered 12/02/23 Ordered By: Margarito Aparicio Prescriptions: Continued amlodipine 10 mg Tablet 10 mg PO QPM Qty: 0 Glucosamine Complex-MSM Capsule 1 cap PO BID Qty: 0 [place] Oil-1000 1,000-200 mg Capsule 1,000 cap PO BID Qty: 0 loratadine 10 mg tablet 10 mg PO DAILY amoxicillin 500 mg Tablet 500 mg PO BID furosemide 20 mg Tablet 20 mg PO DAILY rosuvastatin 20 mg Tablet 20 mg PO DAILY ibuprofen 600 mg tablet 600 mg PO QID PRN (Reason: Pain) lisinopril 20 mg tablet 40 mg PO DAILY carvedilol 25 mg tablet 12.5 mg PO BID Rx Instructions: must administer with a meal/food Changed aspirin 81 mg tablet,delayed release (DR/EC) 81 mg PO BID Qty: 84 0RF Discontinued oxycodone-acetaminophen 5-325 mg tablet 1 tab PO Q6H PRN (Reason: pain) Qty: 14 0RF Follow up/Referrals: Teri Hendrickson PA-C [Primary Care Provider] - Diet/Activity/Treatments Diet: Diet as Tolerated Activity: Weightbear as tolerated, knee range of motion. Other treatments: The patient has already been issued discharge prescriptions from clinic these include: Zofran for nausea, oxycodone 5 mg tablets p.o. q.4 hours as needed for pain. He will take aspirin 81 mg b.i.d. for 6 weeks after surgery for DVT prophylaxis. Medications: -Aspirin 81mg twice daily x6 weeks to prevent blood clots. -OTC Tylenol 500 mg 1 tablet every 4 hours as needed for pain/fever. Max 6 tablets per day. (take scheduled every 4-6 hours for the first few days to week after schedule to help stay on top of your pain) -Ibuprofen 400 mg 1 tablet every 4 hours as needed for pain/inflammation. Max 2,400 mg per day. (take scheduled for the first few days-week after surgery to stay on top of your pain) -Oxycodone 5 mg take 1-2 tablets (5-10mg) every 4 hours as needed for moderate- severe pain (narcotic pain medication). (maximum dose for very severe pain would be 3 pills (15mg) every 3 hours) -ondansetron (zofran) 4mg - 1 tab every 8 hours as needed for nausea -As needed medications: -Ducolax and /or MiraLax as needed for constipation from narcotic pain medications. -Pepcid AC as needed for stomach upset (usually from aspirin or ibuprofen). Dressing/Wound care: -Remove the Laex wrap 48 hours after surgery. -Keep Aquacel dressing in place until postoperative follow-up office visit. -Okay to shower. Keep wound out of direct water stream. No soaking or submerging until all the scabs fall off (approximately 4-6 weeks). -No lotions, ointments, or scar creams directly to the incision until the wound is healed (4-6 weeks), -Please call the office if dressing becomes wet, soiled, or saturated. Activities: -Weight-bearing as tolerated. Use front wheeled walker, and progress to cane when safe. -Continue with home exercises as directed by your physical therapist. (work on getting your leg. knee fully straight and bending knee as well- motion after knee replacement is very important) -should have outpatient Physical Therapy visits set up to start within 1 week after surgery -Elevate ?toes above the nose if you have significant swelling in your lower leg. (A wedge pillow is easiest.) -Ice your incision as needed for pain/inflammation/swelling. Protect your skin with a folded pillowcase. -Incentive Spirometer (breathing device from hospital): 5-10xs every hour while awake for the first 1-2 weeks. Follow-up: -Follow-up with your surgeon or PA in the office in 10-14 days after surgery. -Follow-up with your surgeon 6 weeks postoperatively. Contact the office if you have any of the following: ? Painful swelling or numbness ? Unrelenting pain ? Fever (over 101?- it is normal to have a low grade fever for the first day or two following surgery) or chills ? Redness around the incisions ? Color changes ? Continuous bleeding or drainage from the incision (a small amount is expected) ? Excessive nausea or vomiting ? Difficulty breathing If you have an emergency that requires immediate attention such as shortness of breath or chest pain, call 911 or proceed to the nearest emergency room. [facility]: [phone] Pain Medications: It is the policy of [facility] that narcotic medications will only be refilled during office hours. Additionally, due to the alarming rate of narcotic pain medication abuse/dependence, it has become necessary for physician practices to closely manage patient use of prescription narcotic pain relievers, such as Vicodin ([place]), Percocet, and Oxycodone products. Narcotic pain management in the postoperative period may not exceed 6 weeks. If narcotic pain management is required beyond 90 days, then a referral to a Chronic Pain Specialist will be made. If a request for a medication prescription of refill has been made, the physician must review your chart prior to authorizing the request. Please be patient with office staff. If you call during patient hours, your call may not be returned until the end of the day. Skin/Wound/Dressing Care Report to your healthcare provider any signs of infection, such as:: chills, fever, night sweats, increased pain, unusual drainage and unusual redness Visit Report/Discharge Packet Instructions: DI for Knee Replacement, DI for Prescription Opioid Use Stand Alone Forms: Patient Portal/API Discharge Data Primary Care Provider: Teri Hendrickson Attending Provider: Fatuma Mills VTE Deep Vein Thrombosis/Pulmonary Embolism Present on Admission: No
[2023-12-02 08:00] VITALS: BP 149/71; PULSE 62; RESP 16; TEMP 36.4; O2SAT 97
[2023-12-02 08:25] VITALS: BP 137/75; PULSE 70
[2023-12-02] MEDS: carvediloL 12.5 MG TABLET PO (08:25)
[2023-12-02] MEDS: ATORVASTATIN 20 MG TABLET 40 MG PO (08:25)
[2023-12-02 08:26] VITALS: BP 137/75; PULSE 70
[2023-12-02] MEDS: ASPIRIN EC 81 MG TABLET PO (08:26)
[2023-12-02] MEDS: AMOXICILLIN 250 MG CAPSULE 500 MG PO (08:26)
[2023-12-02] MEDS: lisinopriL 20 MG TABLET 40 MG PO (08:26)
[2023-12-02] MEDS: LORATADINE 10 MG TABLET PO (08:27)
--- NOTE | 2023-12-02 08:59 | OT.IP.EVAL ---
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 Obesity (BMI 30-39.9) Obstructive sleep apnea of adult (~2007) Osteoarthritis Primary thrombocytopenia Tinnitus Ventral hernia Surgical History (Last Reviewed 11/28/23 @ 07:42 by Katelyn Soto MD) History of cardiac cath (~2007) History of cardiac cath (10/27/23) History of left knee surgery History of right knee surgery History of surgery History of total left knee replacement (12/11/21) History of vasectomy (1983) Hx of colonoscopy Hx of left inguinal hernia repair Hx of right inguinal hernia repair Hx of ventral hernia repair (10/06/22) Occupational Therapy Inpatient Evaluation/Re-Eval M1 PT/OT-IP Prior Functional Status Start: 12/01/23 17:36 Freq: NEEDED Status: Active Protocol: Document 12/02/23 15:14 CGR (Rec: 12/02/23 15:22 CGR [id number]) Medical Review Prior Functional Status Medical History Reviewed Yes Communication pt is an effective verbal communicator. Mobility and Gait pt stated that he was independent with all mobilities and ambulation without AD Activities of Daily Living and IADL's Pt was IND in all ADLs and IADLs Social History Household Members spouse Living Arrangements House Number of Floors (Floors) One Floor Number of Stairs To Enter/Railing? 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 Pt is now fully retired. He has a flat bed. M2 OT-IP Current Condition Start: 12/02/23 15:13 Freq: Status: Active Protocol: Document 12/02/23 15:14 CGR (Rec: 12/02/23 15:22 CGR [id number]) Occupational Therapy Current Condition Current Condition Evaluation Date 12/02/23 Treatment Diagnosis R TKA Diagnosis Onset Date 12/01/23 Weight Bearing Status Weight Bearing Status Weight Bear as Tolerated M3 OT- IP Subjective and Pain Start: 12/02/23 15:13 Freq: Status: Active Protocol: Document 12/02/23 15:14 CGR (Rec: 12/02/23 15:22 CGR [id number]) OT- Subjective Occupational Therapy Visit Type Type Initial Evaluation Visit Start Time 08:35 Visit Stop Time 08:59 Notes Pt standing in room when OT entered OT Pain Assessment Pain When Pain Assessed At Rest Pain Present Pain Present Pain Reported Location right knee Intensity 4 Scale Used Numeric (0 - 10) Management Techniques Modification of Treatment,Re- positioning M4 OT- IP ADL's Start: 12/02/23 15:13 Freq: Status: Active Protocol: Document 12/02/23 15:14 CGR (Rec: 12/02/23 15:22 CGR [id number]) OT [id number] Comments OT Self-Feeding Comments not meal time OT ADL-Grooming General Evaluation Grooming Ability Independent Areas Needing Assistance Face Washing Comments OT Grooming Comments standing at sink OT ADL-Oral Care General Eval Oral Care Ability Standby Assistance Areas of Assistance Brushing Teeth,Retrieving/Set- Up of Items Comments Oral Care Comments standing at sink OT ADL-Dressing General Eval Lower Body Dressing Ability Independent Areas Needing Assistance Underpants/Brief,Pants/Shorts, Socks Comments OT Dressing Comments Pt was able to dress without AD. OT ADL-Toileting General Evaluation Toileting Ability Independent Areas Needing Assistance Manage Clothing,Perform Perineal Hygiene Comments OT Toileting Comments seated on toilet OT ADL-Bathing Comments OT Bathing Comments not performed M5 OT- IP IADL's Start: 12/02/23 15:13 Freq: Status: Active Protocol: Document 12/02/23 15:14 CGR (Rec: 12/02/23 15:22 CGR [id number]) OT-Instrumental Activities of Daily Living Deficits IADL Deficits Identified No Deficits Home Safety Awareness Awareness of Need for Assistance at Home Good Awareness Ability to Problem Solve Emergency Able to Problem Solve Situations Medication Management Medication Management No Deficits Identified Money Management Money Management No Deficits Identified Meal Preparation Meal Preparation No Deficits Identified, Caregiver Provides Assist Kennel Manager Dog Track Kennel Manager Dog Track Caregiver Provides Assist Driving Driving Comments Pt states that he understands that he should not drive till cleared by the md. M6 OT- IP Functional Cognition Start: 12/02/23 15:13 Freq: Status: Active Protocol: Document 12/02/23 15:14 CGR (Rec: 12/02/23 15:22 CGR [id number]) Cognitive Factors Limiting Selfcare Function Cognitive Ability Level of Alertness Alert Patient Orientation Name,Age,Birthday,Month,Date, Year,Day of Week,Place, Situation Attention Span Ability Capable of Focused Attention, Capable of Sustained Attention Ability to Follow Commands Able to Follow One Step Commands with Increased Time, Able to Follow One Step Commands with Repetition OT- Vision and Hearing OT- Hearing Assessment OT- Hearing Assessment Hearing Impaired,Use of Hearing Aids OT- Vision Assessment Visual Acuity Glasses All The Time,Glasses For Reading Visual Attentiveness WFL Occular Pursuits WFL Visual Convergence WFL Vision Assessment Comments Pt has glasses for driving and glasses for reading. M7 OT- IP Mobility and Balance Start: 12/02/23 15:13 Freq: Status: Active Protocol: Document 12/02/23 15:14 CGR (Rec: 12/02/23 15:22 CGR [id number]) OT-Transfer Assessment Sit to and From Stand Sit to and from Stand Independent Transfers Transfer Ability Independent Technique Transfer Destination Chair,Toilet Transfer Technique Stand Step Pivot Devices Transfer Assistive Devices Gait Belt,Front Wheeled Walker Comments Mobility Comments Pt ambulates with IND and DME OT- Gait Assessment Gait Gait Assistance Required: Independent Assistive Devices Assistive Device Gait Belt,Front Wheeled Walker OT- Balance Assessment Sitting Balance and Reactions Static Sitting Balance Ability Normal Dynamic Sitting Balance Ability Normal M8 OT- IP Objective Assessments Start: 12/02/23 15:13 Freq: Status: Active Protocol: Document 12/02/23 15:14 CGR (Rec: 12/02/23 15:22 CGR [id number]) OT Gross Range of Motion Upper Extremity Range of Motion Assessment Within Functional Limits OT Strength Upper Extremity Strength Assessment Within Functional Limits OT- Coordination Assessment Upper Extremity Finger to Nose Test Within Functional Limits Finger Tapping Test Within Functional Limits OT Sensation Assessment Edema Edema Absent M9 OT- IP Assessment and Plan Start: 12/02/23 15:13 Freq: Status: Active Protocol: Document 12/02/23 15:14 CGR (Rec: 12/02/23 15:22 CGR [id number]) OT Summary Assessment and Plan Potential Rehabilitation Potential Excellent Analytic Complexity at Evaluation Low Summary OT Impairments Pain,Activity Tolerance Progress Towards Goals Progressing Toward Goals Assessment Summary Pt presents as a low complexity evaluation s/p admit for R TKA. Pt is able to perform LB dressing without AD and is mobilizing in the room with IND and DME. No further OT needs. Frequency of Treatment Frequency Of Treatment Discharge Discharge Recommendations OT Discharge Recommendations Home Transportation Needs at Discharge Private Vehicle
--- NOTE | 2023-12-02 09:17 | PT.IPTN ---
Current Diagnoses Unilateral primary osteoarthritis, right knee (12/01/23) Surgery Performed Operation Date: 12/01/23 07:45 Actual Procedures p Total Knee Arthroplasty - Robot(Right) - Fatuma Mills MD Physical Therapy Treatment Note M2 PT-IP Current Condition Start: 12/01/23 17:36 Freq: NEEDED Status: Active Protocol: Document 12/01/23 16:00 AB (Rec: 12/01/23 17:48 AB [id number]) Physical Therapy Current Condition Current Condition Evaluation Date 12/01/23 Treatment Diagnosis s/p R TKA; difficulty in walking Onset Date 12/01/23 M3 PT-IP Subjective Start: 12/01/23 17:36 Freq: NEEDED Status: Active Protocol: Document 12/02/23 10:20 TS (Rec: 12/02/23 10:27 TS [id number]) Subjective Physical Therapy Visit Type Type Treatment Note Visit Start Time 09:17 Visit Stop Time 09:40 Number of MANAGER TRANSPORTATION PLANNING Visits 1 Physical Therapy Visit Comments Patient Comments Pt found resting in chair, is agreeable to PT. Therapy Pain Assessment Pain When Pain Assessed During Mobility Pain Present Pain Present Pain Reported M4 PT-IP Mobility and Gait Start: 12/01/23 17:36 Freq: NEEDED Status: Active Protocol: Document 12/02/23 10:20 TS (Rec: 12/02/23 10:27 TS [id number]) PT-Transfer Assessment Sit to and From Stand Sit to and from Stand Standby Assistance Equipment Transfer Assistive Device Gait Belt,Front Wheeled Walker Orthotic/Prosthetic Devices or Brace: No Comments Mobility Comments STS from chair SBA with FWW, pt dmeonstrates good carryover of STS sequencing. He ambulated ~200' SBA with FWW and a step to gait. He performed steps x6 with single rail sidestepping up/down SBA with cues for sequencing. Pt ambulated back to room, was educated on post-op ex. Pt was left in chair, all needs met. Gait Assessment Gait Gait Assistance Required: Standby Assistance Distance (Feet) 200 Able to Maintain Weight Bearing Status Yes During Gait Assistive Devices Assistive Device Gait Belt,Front Wheeled Walker Orthotic/Prosthetic Devices or Brace: No Gait Deviations General Gait Pattern Antalgic,Decreased Stride Length,Decreased Feet Clearance Factors Limiting Gait Function Factors Limiting Gait Function Decreased Activity Tolerance, Decreased Strength,Limited Range of Motion,Pain,Poor Balance Stair Climbing Assessment Evaluation Level of Assist On Stairs Standby Assistance Devices Stair Climbing Assistive Devices Right Railing Technique/Endurance Stair Climbing Direction Ascend and Descend Stair Climbing Technique Step to Step Number of Steps Climbed 6 PT-Balance Assessment Sitting Balance and Reactions Static Sitting Balance Ability Normal Dynamic Sitting Balance Ability Good Standing Balance and Reactions Static Standing Balance Ability Good Dynamic Standing Balance Ability Fair Device Used FWW M5 PT-IP Objective Assessments Start: 12/01/23 17:36 Freq: NEEDED Status: Active Protocol: Document 12/01/23 16:00 AB (Rec: 12/01/23 17:48 AB [id number]) Orientation Orientation/Cognition Level of Alertness Alert Orientation Name,Place,Situation Language Function Ability Hard of Hearing Safety Awareness Decreased Safety Awareness Memory Description Short Term Impaired Gross Range of Motion Lower Extremity ROM Assessment Right Impaired Impairments R knee flexion: ~ 70 deg R knee extension: ~ 10 deg less to 0 Strength Lower Extremity Strength Assessment Right Impaired Hip 4-/5 Knee 3+/5 Sensation Assessment Sensation Gross Sensation WNL Muscle Tone Muscle Tone WNL Yes M6 PT-IP Treatment Start: 12/01/23 17:36 Freq: NEEDED Status: Active Protocol: Document 12/02/23 10:20 TS (Rec: 12/02/23 10:27 TS [id number]) Physical Therapy Treatment Education Education Provided Precautions,Weight Bearing Status,Post-Op Packet,Safety M7 PT-IP Assessment and Plan Start: 12/01/23 17:36 Freq: NEEDED Status: Active Protocol: Document 12/02/23 10:20 TS (Rec: 12/02/23 10:27 TS [id number]) PT Summary Assessment and Plan Potential Rehabilitation Potential Fair Summary Impairments Pain,ROM,Strength,Balance, Coordination,Sensation,Tone, Cognition,Bed Mobility, Transfers,Gait,Activity Tolerance Progress Towards Goals Progressing Toward Goals Assessment Summary Jn is making good progress with his mobility. He is SBA for STS and for gait ~200 with FWW. He performed steps x6 with SBA and single rail. PT is recommending home with assist and outpatient PT. Goals Bed Mobility Goal Independent Transfer Goal Independent,Front Wheeled Walker Gait Goal Independent,Front Wheel Walker Gait Distance 300 Other Goals improve transfers and ambulation using LRAD ~ 300 ft mod I up/down 3 steps 1 rail mod I Days to Meet Goals 5 Frequency of Treatment Frequency Of Treatment Twice a Day Treatment Plan Physical Therapy Treatment Plan Bed Mobility Training,Transfer Training,Gait Training, Therapeutic Exercise,Balance Retraining,Post Op Education, Discharge Planning,Hot or Cold Pack,Neuromuscular Re-ed, Coordination Retraining,Manual Therapy Weight Bearing Status Weight Bearing Status Weight Bear as Tolerated Allowed Weight Bearing Amount (enter % RLE WBAT or #) (%) Recommendations To Nursing Amount of Assist Needed Standby Assistance Discharge Recommendations PT Discharge Recommendations Home with Assistance, Outpatient PT Transportation Needs at Discharge Private Vehicle
--- NOTE | 2023-12-02 13:59 | CM.DANOTE ---
Discharge Planning/Care Management CM Discharge Assessment Start: 12/02/23 13:57 Freq: Status: Active Protocol: Document 12/02/23 13:57 JANEL (Rec: 12/02/23 13:59 JANEL [id number]) Discharge Planning Assessment Assigned Cutting Machine Tender SONG Infante DPOA/Assigned Designee Name Anahi Carter, spouse Contact Information [phone] Advance Directives? No Advance Directives on File No History Provided By Patient,Medical Record Prior Living Arrangements House Household Members spouse Type of transporation used prior to Drives own vehicle admit Independent with ADL's Yes Is patient alert and oriented? Yes Patient/Family Preference OP PT Therapy Barriers to Discharge No Comment Patient POD1 from right TKA. patient planned for return home w/family to assist and has been cleared by therapies for this plan. No needs from this CM team. Discharge Plan Home Transportation Arrangement Significant other Referrals Initiated None needed
--- NOTE | 2023-12-13 07:48 | SUR.PHASEI ---
Addendum entered by Linda Bourne R.N. 12/13/23 07:50: Medication given not scanned on day of surgery in Phase I Original Note: Additional 2nd dose of 5mg Oxycodone given at 1215 to patient prior to transporting to room.
== END 2023-12-02 10:55 | disposition home or self-care (01) ==
LOC: OR 06:06 → AC 06:09
PROVIDERS: PCP Physician Assistant; Referring Provider Orthopaedic Surgery Foot and Ankle Surgery; Visit Provider Orthopaedic Surgery Foot and Ankle Surgery
PROC: 0SRC0JZ Replacement of Right Knee Joint with Synthetic Substitute, Open Approach (ICD-10-PCS; CPT 27447; principal; 2023-12-01 07:45)
DX: M17.11 Unilateral primary osteoarthritis, right knee (principal); G89.18 Other acute postprocedural pain
CPT/HCPCS: 27447; 20985; 36415; 64450; 73560; 85014; 85018; 97116; 97162; 97165; 97530; 97535; C1776; C9290; J0171; J0690; J1100; J1170; J2405; J2704; J3010; J3410

== ENCOUNTER → 2023-12-13 | Outpatient (CLI) | payer MEDICARE, OTHER, SELFPAY ==
[2023-12-01 12:32] VITALS: BMI 33.2
--- NOTE | 2023-12-13 12:30 | DI.US.S_ITS ---
PROCEDURE: US PERIP VENOUS LOW EXTREM RT INDICATIONS: REDNESS TECHNIQUE: Real-time imaging, as well as color and pulse Doppler interrogation, were performed of the lower extremity deep veins from the inguinal ligament to the popliteal fossa, with documentation of the visualized calf veins. COMPARISON: [facility], , US [facility] VENOUS LOW EXTREM RT, 08/23/2023, 15:32. FINDINGS: The common femoral, femoral, popliteal, and the visualized calf veins are normally compressible, and free of intraluminal thrombus. The posterior tibial and peroneal veins are not well seen. Color and pulse Doppler demonstrate normal phasic intraluminal flow. There is normal augmentation response to distal compression maneuver. Complex cyst within popliteal fossa measuring 4.0 x 2.8 x 1.7 cm, possibly a Garnett's cyst. Collection and medial right knee/posterior popliteal fossa measuring 3.7 x 3.4 x 3.2 cm. IMPRESSION: 1. No findings of lower extremity deep venous thrombosis. 2. Complex collections posterior to the knee, as described above. Dictated by: Jad Rios M.D. on 12/13/2023 at 13:30 Approved by: Jad Rios M.D. on 12/13/2023 at 13:32
== END ==
PROVIDERS: PCP Physician Assistant; Referring Provider Orthopaedic Surgery Foot and Ankle Surgery; Visit Provider Orthopaedic Surgery Foot and Ankle Surgery
DX: M17.11 Unilateral primary osteoarthritis, right knee (principal); M71.21 Synovial cyst of popliteal space [Baker], right knee
CPT/HCPCS: 93971

== ENCOUNTER → 2024-03-23 14:21 | Outpatient (CLI) | payer MEDICARE, OTHER, SELFPAY ==
[2023-12-01 12:32] VITALS: BMI 33.2
[2024-03-23 16:53] LABS: BUN Creatinine Ratio 23.4 (6-22); Blood Urea Nitrogen 18 mg/dL (9-20); Calcium 8.4 mg/dL (8.4-10.2); Carbon Dioxide 25 mmol/L (22-32); Chloride 107 mmol/L (98-107); Estimated Glomerular Filt Rate > 60 mL/min (>60); Glucose 95 mg/dL (80-110); HEMOLYSIS < 15 (0-50); Potassium 3.6 mmol/L (3.4-5.1); Sodium 139 mmol/L (137-145)
[2024-03-23 17:22] LABS: Prostate Specific Antigen Scrn 2.26 ng/mL (0.1-4.0)
== END ==
PROVIDERS: PCP Physician Assistant; Referring Provider Urology; Visit Provider Urology
DX: Z12.5 Encounter for screening for malignant neoplasm of prostate (principal); N20.0 Calculus of kidney; N28.1 Cyst of kidney, acquired
CPT/HCPCS: 80048; G0103

== ENCOUNTER → 2024-03-27 10:21 | Outpatient (CLI) | payer MEDICARE, OTHER, SELFPAY ==
[2023-12-01 12:32] VITALS: BMI 33.2
--- NOTE | 2024-03-27 11:30 | DI.CT.S_ITS ---
PROCEDURE: CT IVP A/P W/WO INDICATIONS: Follow-up kidney stones, microscopic hematuria, complex renal cyst TECHNIQUE: Optional 5 mm thick noncontrast images acquired from the diaphragm to the symphysis pubis. After the administration of intravenous contrast, 5 mm thick images acquired from the diaphragm to the symphysis pubis after a 10-minute delay. 2 mm thick coronal and sagittal reformats were then performed of the kidneys and ureters. For radiation dose reduction, the following was used: automated exposure control, adjustment of mA and/or kV according to patient size. COMPARISON: None. FINDINGS: Image quality: Diagnostic. Kidneys and Ureters: Both kidneys are normal in size. 12 x 8 mm stone in the extrarenal pelvis on the left, without obstruction (733 Hounsfield unit). Additional nonobstructing 4 mm stone in the inferior calyx of the left kidney. No complex renal cystic lesions which require follow-up.No perinephric fat stranding. There is normal bilateral renal enhancement. Abnormal thickening of the left renal pelvis (series 4, image 39). Mild fat stranding adjacent to this region. Opacified portions of both ureters demonstrate normal caliber Bladder: Bladder wall thickness is normal. No calcified bladder stones. OTHER: Lower chest: Cardiomegaly. Liver: Hepatic cysts. Additional subcentimeter hypoattenuating lesions, too small to characterize by CT. Gallbladder: No radiopaque gallstones or wall thickening. Biliary ducts: No biliary dilation. Pancreas: No ductal dilation. Coarse calcifications. Spleen: Size is within normal limits. Adrenal Glands: No adrenal nodules. Stomach and Bowel: Normal colonic caliber, without significant wall thickening. Colonic diverticulosis without evidence of diverticulitis. Peritoneum: No abnormal intraperitoneal fluid. No free air. Ventral Wall: No hernia. Abdominal Nodes: No retroperitoneal or mesenteric adenopathy by size criteria. Vessels: Aorta and inferior vena cava are normal in size. PELVIS: Pelvic Organs: Unremarkable. Pelvic Nodes: No enlarged lymph nodes. Miscellaneous: Left inguinal hernia containing fat.. Bones: No aggressive osseous abnormality. IMPRESSION: Nonobstructing 12 x 8 mm stone in the left renal pelvis. Abnormal thickening of the left renal pelvis, with trace adjacent fat stranding. Differential includes malignancy or inflammation from the stone. Infection is less likely. Chronic pancreatitis without ductal dilation. Dictated by: Sree Camarena M.D. on 03/27/2024 at 16:03 Approved by: Sree Camarena M.D. on 03/27/2024 at 16:09
== END ==
PROVIDERS: PCP Physician Assistant; Referring Provider Urology; Visit Provider Urology
DX: K86.1 Other chronic pancreatitis (principal); N28.1 Cyst of kidney, acquired; R31.21 Asymptomatic microscopic hematuria; N20.0 Calculus of kidney; K76.89 Other specified diseases of liver; K57.90 Diverticulosis of intestine, part unspecified, without perforation or abscess without bleeding
CPT/HCPCS: 74178; Q9967

== ENCOUNTER → 2024-05-31 10:42 | Outpatient (CLI) | payer MEDICARE, OTHER, SELFPAY ==
[2023-12-01 12:32] VITALS: BMI 33.2
--- NOTE | 2024-05-31 10:43 | DI.RAD.S_ITS ---
PROCEDURE: XR KUB INDICATIONS: Left kidney stone TECHNIQUE: One view of the abdomen acquired. COMPARISON: [facility], CT, CT IVP A/P W/WO, 03/27/2024, 11:29. FINDINGS: Surgical changes and devices: None. Bowel: Bowel gas pattern is nonobstructive. No gross pneumoperitoneum. Waoi-gp-tiosoxug fecal stasis in the colon is seen. Soft tissues: 1.3 x 0.5 cm calcification is seen projecting in left renal fossa. No other abnormal calcifications are seen. Visualized solid organ contours appear normal in size. Bones: No suspicious bony lesions. IMPRESSION: 1. Suggestion of left-sided renal stone measures 1.3 x 0.5 cm in size. 2. Ywvk-tn-bajvtffr constipation. No gross free air. Dictated by: Alpesh Victor M.D. on 05/31/2024 at 14:27 Approved by: Alpesh Victor M.D. on 05/31/2024 at 14:28
== END ==
PROVIDERS: PCP Physician Assistant; Referring Provider Urology; Visit Provider Urology
DX: N20.0 Calculus of kidney (principal); N40.1 Benign prostatic hyperplasia with lower urinary tract symptoms; R31.21 Asymptomatic microscopic hematuria; K59.00 Constipation, unspecified
CPT/HCPCS: 52000; 74018; 81002

== ENCOUNTER 2024-06-20 08:58 | Day surgery (SDC) | payer MEDICARE, OTHER, SELFPAY ==
[2023-12-01 12:32] VITALS: BMI 33.2
[2024-06-16 15:02] VITALS: BMI 32.1
[2024-06-20 09:17] VITALS: BMI 32.1
--- NOTE | 2024-06-20 09:27 | PM.PREOP ---
Pre-operative Note COVID-19 COVID-19 status: Not tested Interval Note History & Physical reviewed/Exam performed by Physician: Yes Changes to H&P: No
[2024-06-20 09:32] VITALS: BP 177/95; PULSE 66; RESP 12; TEMP 36.5; O2SAT 99
[2024-06-20] MEDS: LACTATED RINGERS 1,000 ML 21 ML IV (09:38)
[2024-06-20] MEDS: CEFAZOLIN 2 GM/100 ML PREMIX 100 ML IV (10:44)
--- NOTE | 2024-06-20 11:02 | SUR.OPER ---
Lithotomy on padded OR bed, head on pillow, arms secured on padded arm boards at <90 degrees abduction. Legs secured in padded yellow fins stirrups.
--- NOTE | 2024-06-20 11:09 | PATH_ITS ---
Note [facility] Accession Number: [id number] TESTS RESULT FLAG UNITS REF RANGE LAB Clinician Provided Cytology Information No. of containers..01 Urine Bottle Source: LEFT RENAL PELVIS WASHING DIAGNOSIS: LEFT RENAL PELVIS WASHING NEGATIVE FOR HIGH-GRADE UROTHELIAL CARCINOMA ([facility]). GROUPS OF MILDLY ATYPICAL UROTHELIAL CELLS ARE PRESENT. THE DIFFERENTIAL DIAGNOSIS INCLUDES INSTRUMENTATION, LITHIASIS AND UROTHELIAL NEOPLASM. CORRELATION WITH IMAGING FINDINGS IS RECOMMENDED. Pathologist ICD10: N20.0, N28.89 Signed out by: Haleigh Nelson MD, Pathologist NPI- [id number] Performed by: Haleigh Craft, Belling Machine Operator ([facility]) Gross description: 40 CC, PINK, CLOUDY RECEIVED: FRESH IN BLUE CAP CONTAINER.VO /VDU 06/21/2024 101 Local FLAG LEGEND: L-Low Normal,H-High Normal,LL-Alert Low,HH-Alert High <-Panic Low,>-Panic High,A-Abnormal,AA-Critical Abnormal Performed at: 01 =Z [facility] [address], [place] [address] Michael Dominguez MD, Performed at: [address] [facility], [place], [place] [id number] MD Michael Dominguez MD Phone: [phone]
[2024-06-20] MEDS: iopamidoL 30 ML VIAL INJ (11:30)
--- NOTE | 2024-06-20 11:40 | P.OP_ITS ---
Procedure & Clinicians Procedure: Left ureteroscopy with renal pelvic washing, renal pelvic mucosal brushing, retrograde pyelogram and left stent placement. Same procedure as scheduled: Yes Indications: This 73-year-old male with a known kidney stone had imaging which showed left renal pelvic thickening as well as kidney stone. He went onto have urine cytologies which showed urine atypia and a positive ?fish test? and presents at this time for the above procedure to evaluate for malignancy. Stent will be placed today but no stone treatment undertaken. Surgeon: Sukhwinder Tello Click Yes if Unassisted: Yes Anesthesia Type: General Operative Notes Findings: Findings: Urethral meatus is normal urethra is normal along its length, sphincter as well coapted and mucosa is normal throughout. Prostatic fossa shows moderate approaching severe obstructive character. With a somewhat high bladder neck the right and left ureteral orifice in normal position with clear efflux and there were no abnormalities noted within the bladder mucosa is normal, there was no fistula, there was no stone at retrograde pyelogram the mucosa in the area of thickening which is cephalad medial in the renal pelvis LEs somewhat irregular and under direct vision it did have an abnormal appearance which could have been inflammatory could also be urothelial carcinoma malignant. Stone was noted in the renal pelvis and the area was focal and perhaps 2 cm in diameter. There were no other abnormalities noted within the renal pelvis. The ureter was normal along its length as it was visualized a 7 [place] by multi length stent was left in place with no string. Closure Type: not applicable Specimen(s): other (1. Renal pelvic washing 2. Renal pelvic brushing.) Prosthetic devices, grafts, tissues, transplants, or devices: Seven [place] by multi length ureteral stent left collecting system no string. It was left in good position both under direct vision and fluoroscopy Blood products transfused: none Procedure in detail: Procedure in detail: After informed consent was obtained, the patient was identified and brought to the operating room where he is placed in his supine position on the table once there anesthesia was induced and maintained. Ensuring an adequate level of anesthesia the patient was prepped and draped in a sterile fashion for Transurethral procedure. After prepping draping, ensuring an adequate level of anesthesia, administration of antibiotics and time-out a 22 [place] cystoscope was passed through the urethra prostate and end of the bladder where cystoscopy was performed. The left ureteral orifice was identified and a guidewire passed up into the collecting system under fluoroscopic visualization. The scope was backed out the wire was left in place and reserved as a safety wire. The cystoscope was once again reinserted and a 2nd wire passed up and into the collecting system. The bladder was drained the scope backed out the working wire left in place. The flexible ureteral scope was then passed over the working wire and up and into the collecting system under fluoroscopic visualization. The collecting system was then filled with 50 50 mix of contrast and sequential nephroscopy was performed. Stone was identified in the area of abnormality of the mucosa again in the cephalad medial aspect of the renal pelvis. At this point the renal pelvic fluid was lavaged and 40 cc aliquots collected to be sent for cytologic examination. The endoscopic brush was then inserted in the abnormal mucosa was vigorously brushed and the sample placed in formalin to be forward to pathology. With these findings and maneuvers in hand the ureteral scope was backed out in the ureter was visualized along its entire length. The safety wire was then backloaded through the cystoscope the cystoscope inserted in the stent passed over the wire positioned in the renal pelvis under fluoroscopic visualization and in the bladder under direct vision. The nylon harness was removed the stent was left in good position without wire. The bladder was drained the scope was removed and the patient was awakened taken to the postanesthesia care unit having tolerated the procedure well there were no complications. We will await the pathologic examination indeterminate future maneuvers from there. Complications: none Post-operative Condition: stable Disposition: PACU Plan for aftercare: Patient to follow up my office in approximately 2 weeks to go over the pathology results. We will then depending on the results either make a plan to take care of the lesion and or his stone.
[2024-06-20 11:41] VITALS: BP 143/84; PULSE 63; RESP 19; TEMP 36.6; O2SAT 94
[2024-06-20 11:46] VITALS: BP 143/81; PULSE 60; RESP 13; O2SAT 94
[2024-06-20 11:52] VITALS: BP 136/78; PULSE 66; RESP 14; O2SAT 96
[2024-06-20 12:00] VITALS: BP 136/58; PULSE 58; RESP 15; TEMP 36.4; O2SAT 95
== END 2024-06-20 12:23 | disposition home or self-care (01) ==
PROVIDERS: PCP Physician Assistant; Referring Provider Urology; Visit Provider Urology
PROC: (CPT 52354; principal; 2024-06-20 10:45)
DX: N20.0 Calculus of kidney (principal); N28.89 Other specified disorders of kidney and ureter; R31.21 Asymptomatic microscopic hematuria; R93.41 Abnormal radiologic findings on diagnostic imaging of renal pelvis, ureter, or bladder; R82.89 Other abnormal findings on cytological and histological examination of urine; I25.10 Atherosclerotic heart disease of native coronary artery without angina pectoris; E78.5 Hyperlipidemia, unspecified; G47.33 Obstructive sleep apnea (adult) (pediatric); N40.0 Benign prostatic hyperplasia without lower urinary tract symptoms; I77.810 Thoracic aortic ectasia; E78.2 Mixed hyperlipidemia; I10 Essential (primary) hypertension; D69.6 Thrombocytopenia, unspecified; E66.9 Obesity, unspecified; Z68.32 Body mass index [BMI] 32.0-32.9, adult; Z87.891 Personal history of nicotine dependence; Z80.42 Family history of malignant neoplasm of prostate
CPT/HCPCS: 52354; 52332; 76000; C1771; J0690; J2405; J2704; J3010; Q9967

== ENCOUNTER → 2024-07-11 15:09 | Outpatient (CLI) | payer MEDICARE, OTHER, SELFPAY ==
[2023-12-01 12:32] VITALS: BMI 33.2
== END ==
PROVIDERS: PCP Physician Assistant; Visit Provider Urology
DX: N40.1 Benign prostatic hyperplasia with lower urinary tract symptoms (principal)
CPT/HCPCS: 87086

== ENCOUNTER → 2024-08-10 14:17 | Outpatient (CLI) | payer MEDICARE, OTHER, SELFPAY ==
[2023-12-01 12:32] VITALS: BMI 33.2
== END ==
PROVIDERS: PCP Physician Assistant; Visit Provider Urology
DX: N40.1 Benign prostatic hyperplasia with lower urinary tract symptoms (principal); R39.12 Poor urinary stream; N20.0 Calculus of kidney; N28.1 Cyst of kidney, acquired; R93.41 Abnormal radiologic findings on diagnostic imaging of renal pelvis, ureter, or bladder; Z80.42 Family history of malignant neoplasm of prostate; Z87.891 Personal history of nicotine dependence
CPT/HCPCS: 87086; 99214

== ENCOUNTER 2024-08-15 06:16 | Day surgery (SDC) | payer MEDICARE, OTHER, SELFPAY ==
[2023-12-01 12:32] VITALS: BMI 33.2
[2024-08-14 13:27] VITALS: BMI 33.3
[2024-08-15] MEDS: LACTATED RINGERS 1,000 ML 21 ML IV (06:56)
[2024-08-15 07:06] VITALS: BP 149/86; PULSE 71; RESP 20; TEMP 37.2; O2SAT 97; BMI 33.3
--- NOTE | 2024-08-15 07:40 | PM.PREOP ---
Pre-operative Note COVID-19 COVID-19 status: Not tested Interval Note History & Physical reviewed/Exam performed by Physician: Yes Changes to H&P: No
[2024-08-15] MEDS: CEFAZOLIN 2 GM/100 ML PREMIX 100 ML IV (07:54)
--- NOTE | 2024-08-15 08:03 | SUR.OPER ---
Supine on ESWL table with pillow under head and gel pads under arms at sides.
[2024-08-15 08:39] VITALS: BP 145/76; PULSE 67; RESP 18; TEMP 36.8; O2SAT 94
--- NOTE | 2024-08-15 08:39 | PM.OP.1 ---
Procedure & Clinicians Procedure: Left extracorporeal shockwave lithotripsy Same procedure as scheduled: Yes Indications: This 73-year-old male was found to have a 1.2 by 0.8 cm calculus in the left renal pelvis. And presents this time for left extracorporeal shockwave lithotripsy having had a stent previously placed. Surgeon: Sukhwinder Tello Click Yes if Unassisted: Yes Anesthesia Type: General Operative Notes Findings: Findings: Left stent in good position by fluoroscopy. The 12 x 8 mm stone is noted to be in the renal pelvis. The stone received 3000 shocks at level 7 and appeared to fragment well. No other abnormalities or significant findings were noted. Closure Type: not applicable Specimen(s): none sent Prosthetic devices, grafts, tissues, transplants, or devices: None placed at this procedure Estimated Blood Loss (mL): 0 Blood products transfused: none Procedure in detail: Procedure in detail: After informed consent was obtained, the patient was identified brought to the operating room where he is placed on the Lithotripter. Once there anesthesia was induced and maintained. Ensuring an adequate level of anesthesia, after time-out and administration of IV antibiotics the stone was targeted via the imaging system and shockwave delivered ramping up to level 7 for a total of 3000 shocks. Periodic reimaging and localization of the stone was performed to ensure maximal energy delivery to the stone. At 3000 shocks the shockwave head was rotated out and fluoroscopy performed the stone appeared to be well fragmented so at this point the patient was awakened having tolerated the procedure well. He was transferred to the postanesthesia care unit for recovery and once recovered will be discharged to home. There were no complications Complications: none Post-operative Condition: stable Disposition: PACU Plan for aftercare: Once awake and alert the patient will be discharged to home to strain his urine saving any fragments that he catches to bring to follow-up. Patient will follow-up in my office in 10-14 days with a KUB.
[2024-08-15 08:44] VITALS: BP 145/87; PULSE 60; RESP 13; O2SAT 95
[2024-08-15 08:49] VITALS: BP 141/83; PULSE 66; RESP 11; O2SAT 95
[2024-08-15 08:55] VITALS: BP 126/73; PULSE 66; RESP 16; TEMP 36.6; O2SAT 94
== END 2024-08-15 09:10 | disposition home or self-care (01) ==
PROVIDERS: PCP Physician Assistant; Referring Provider Urology; Visit Provider Urology
PROC: (CPT 50590; principal; 2024-08-15 07:45)
DX: N20.1 Calculus of ureter (principal); N40.1 Benign prostatic hyperplasia with lower urinary tract symptoms; R39.12 Poor urinary stream; Z87.891 Personal history of nicotine dependence; Z80.42 Family history of malignant neoplasm of prostate
CPT/HCPCS: 50590; 82962; J0690; J1100; J2405; J2704; J3010

== ENCOUNTER → 2024-08-24 16:52 | Outpatient (CLI) | payer MEDICARE, OTHER, SELFPAY ==
[2023-12-01 12:32] VITALS: BMI 33.2
--- NOTE | 2024-08-24 16:56 | DI.RAD.S_ITS ---
PROCEDURE: XR KUB INDICATIONS: Follow-up left renal calculus lithotripsy TECHNIQUE: One view of the abdomen acquired. COMPARISON: [facility], , XR KUB, 05/31/2024, 11:00. FINDINGS: Surgical changes and devices: Left ureteral stent in place. Bowel: Bowel gas pattern is normal. Soft tissues: Possible calcification at the inferior pole the left kidney measuring 1 centimeter.. Visualized solid organ contours appear normal in size. Bones: No suspicious bony lesions. IMPRESSION: Left ureteral stent in place. Possible calcification at the inferior pole the left kidney measuring 1 centimeter. Dictated by: Jad Rios M.D. on 08/25/2024 at 9:55 Approved by: Jad Rios M.D. on 08/25/2024 at 9:57
== END ==
LOC: LAB 16:54 → RAD 16:55
PROVIDERS: PCP Physician Assistant; Referring Provider Urology; Visit Provider Urology
DX: N20.0 Calculus of kidney (principal); N28.1 Cyst of kidney, acquired; Z96.0 Presence of urogenital implants; Z80.42 Family history of malignant neoplasm of prostate
CPT/HCPCS: 51798; 74018; 87086

== ENCOUNTER → 2024-09-07 11:41 | Outpatient (CLI) | payer MEDICARE, OTHER, SELFPAY ==
[2023-12-01 12:32] VITALS: BMI 33.2
--- NOTE | 2024-09-07 11:42 | DI.RAD.S_ITS ---
PROCEDURE: XR KUB INDICATIONS: Left renal stone lithotripsy TECHNIQUE: One view of the abdomen acquired. COMPARISON: [facility], CT, CT IVP A/P W/WO, 03/27/2024, 11:29. [facility], CR, XR KUB, 08/24/2024, 16:53. [facility], CR, XR KUB, 05/31/2024, 11:00. FINDINGS: Surgical changes and devices: Left-sided nephroureteral stent. Bowel: Bowel gas pattern is normal. Soft tissues: Stable fragmented calcifications the inferior pole of the left kidney. 7 mm stone projects over the expected position of the left UVJ. Bones: No suspicious bony lesions. IMPRESSION: Left-sided nephroureteral stent. 7 mm stones project over the expected position of the left UVJ. Other fragmented calcifications project over the lower pole of the left kidney. Dictated by: Sree Camarena M.D. on 09/07/2024 at 14:43 Approved by: Sree Camarena M.D. on 09/07/2024 at 14:44
== END ==
PROVIDERS: PCP Physician Assistant; Referring Provider Urology; Visit Provider Urology
DX: N20.2 Calculus of kidney with calculus of ureter (principal); Z96.0 Presence of urogenital implants; Z98.890 Other specified postprocedural states
CPT/HCPCS: 51798; 74018; 81002; 87086

== ENCOUNTER → 2024-09-07 13:05 | Outpatient (CLI) | payer MEDICARE, OTHER, SELFPAY ==
[2023-12-01 12:32] VITALS: BMI 33.2
== END ==
PROVIDERS: PCP Physician Assistant; Visit Provider Urology
DX: N20.0 Calculus of kidney (principal)
CPT/HCPCS: 87086

== ENCOUNTER → 2024-09-21 12:33 | Outpatient (CLI) | payer MEDICARE, OTHER, SELFPAY ==
[2023-12-01 12:32] VITALS: BMI 33.2
--- NOTE | 2024-09-21 12:37 | DI.RAD.S_ITS ---
PROCEDURE: XR KUB INDICATIONS: Follow-up lithotripsy TECHNIQUE: One view of the abdomen acquired. COMPARISON: [facility], , XR KUB, 09/07/2024, 11:45. FINDINGS: Surgical changes and devices: Ureterovesicular stent is present coiled within the bladder and the proximal end at the region overlying the renal pelvis. Previously identified calcification overlying the distal catheter is unchanged. Bowel: Bowel gas pattern is normal. Soft tissues: No suspicious abdominal calcifications. Visualized solid organ contours appear normal in size. Bones: No suspicious bony lesions. IMPRESSION: Unchanged appearance of stone overlying the distal left UPJ stent. Dictated by: Leanna Walter M.D. on 09/21/2024 at 16:41 Approved by: Leanna Walter M.D. on 09/21/2024 at 16:42
== END ==
LOC: RAD 12:36
PROVIDERS: PCP Physician Assistant; Referring Provider Urology; Visit Provider Urology
DX: N20.1 Calculus of ureter (principal); Z87.442 Personal history of urinary calculi; Z96.0 Presence of urogenital implants
CPT/HCPCS: 74018

== ENCOUNTER → 2024-09-21 15:28 | Outpatient (CLI) | payer MEDICARE, OTHER, SELFPAY ==
[2023-12-01 12:32] VITALS: BMI 33.2
== END ==
PROVIDERS: PCP Physician Assistant; Visit Provider Urology
DX: N40.1 Benign prostatic hyperplasia with lower urinary tract symptoms (principal); Z80.42 Family history of malignant neoplasm of prostate; R31.21 Asymptomatic microscopic hematuria
CPT/HCPCS: 74018; 87086

== ENCOUNTER → 2024-10-05 10:51 | Outpatient (CLI) | payer MEDICARE, OTHER, SELFPAY ==
[2023-12-01 12:32] VITALS: BMI 33.2
--- NOTE | 2024-10-05 10:53 | DI.RAD.S_ITS ---
PROCEDURE: XR KUB INDICATIONS: Follow-up left calculus/ESWL TECHNIQUE: One view of the abdomen acquired. COMPARISON: [facility], CR, XR KUB, 09/21/2024, 12:36. FINDINGS: Surgical changes and devices: Double-J left ureteral stent in place, unchanged. Stippled calcifications noted over the left renal shadow. Bowel: Bowel gas pattern is normal. Soft tissues: No suspicious abdominal calcifications. Visualized solid organ contours appear normal in size. Bones: No suspicious bony lesions. IMPRESSION: Stippled calcifications projecting over the left renal shadow may reflect fecal debris or residual calculi. Left ureteral stent in place Approved by: Meng Ernst M.D. on 10/07/2024 at 8:54
== END ==
PROVIDERS: PCP Physician Assistant; Referring Provider Urology; Visit Provider Urology
DX: N20.0 Calculus of kidney (principal); Z96.0 Presence of urogenital implants
CPT/HCPCS: 74018; 99213

== ENCOUNTER → 2024-10-26 10:29 | Outpatient (CLI) | payer MEDICARE, OTHER, SELFPAY ==
[2023-12-01 12:32] VITALS: BMI 33.2
--- NOTE | 2024-10-26 10:30 | DI.RAD.S_ITS ---
PROCEDURE: XR KUB INDICATIONS: kidney stones TECHNIQUE: One view of the abdomen acquired. COMPARISON: [facility], CR, XR KUB, 10/05/2024, 10:50. FINDINGS: Surgical changes and devices: Left ureteral stent noted. Bowel: Bowel gas pattern is normal. Soft tissues: No suspicious abdominal calcifications. Visualized solid organ contours appear normal in size. Bones: No suspicious bony lesions. IMPRESSION: No acute abnormality. Dictated by: Michael Paz M.D. on 10/27/2024 at 18:21 Approved by: Michael Paz M.D. on 10/27/2024 at 18:22
== END ==
PROVIDERS: PCP Physician Assistant; Referring Provider Urology; Visit Provider Urology
DX: N20.0 Calculus of kidney (principal); Z96.0 Presence of urogenital implants
CPT/HCPCS: 74018

== ENCOUNTER → 2024-11-09 14:47 | Outpatient (CLI) | payer MEDICARE, OTHER, SELFPAY ==
[2023-12-01 12:32] VITALS: BMI 33.2
[2024-11-09 15:55] LABS: Calcium 9.1 mg/dL (8.4-10.2); Uric Acid 6.6 mg/dL (3.5-8.5)
[2024-11-10 15:13] LABS: Calcium 9.2 mg/dL (8.6-10.2); Parathyroid Hormone, Intact 67 pg/mL (15-65)
== END ==
PROVIDERS: PCP Physician Assistant; Referring Provider Urology; Visit Provider Urology
DX: Z09 Encounter for follow-up examination after completed treatment for conditions other than malignant neoplasm (principal); N20.0 Calculus of kidney; N28.1 Cyst of kidney, acquired; R31.21 Asymptomatic microscopic hematuria
CPT/HCPCS: 36415; 82310; 83970; 84100; 84550

== ENCOUNTER → 2024-11-16 09:27 | Outpatient (CLI) | payer MEDICARE, OTHER, SELFPAY ==
[2023-12-01 12:32] VITALS: BMI 33.2
[2024-11-17 08:36] LABS: Parathyroid Hormone Int 69 pg/mL (15-65)
== END ==
PROVIDERS: PCP Physician Assistant; Referring Provider Urology; Visit Provider Urology
DX: N20.0 Calculus of kidney (principal); N28.1 Cyst of kidney, acquired; N40.1 Benign prostatic hyperplasia with lower urinary tract symptoms; R82.89 Other abnormal findings on cytological and histological examination of urine; R39.12 Poor urinary stream; R93.41 Abnormal radiologic findings on diagnostic imaging of renal pelvis, ureter, or bladder
CPT/HCPCS: 36415; 83970

== ENCOUNTER → 2024-12-18 15:14 | Outpatient (CLI) | payer MEDICARE, OTHER, SELFPAY ==
[2023-12-01 12:32] VITALS: BMI 33.2
--- NOTE | 2024-12-18 15:15 | DI.CT.S_ITS ---
PROCEDURE: CT ABDOMEN PELVIS WO CON INDICATIONS: History of kidney stones left back pain TECHNIQUE: Axial sections were acquired from the lung bases to the pubic symphysis. Coronal and sagittal reformats were performed. For radiation dose reduction, the following was used: automated exposure control, adjustment of mA and/or kV according to patient size. COMPARISON: None. FINDINGS: Image quality: Diagnostic. Lower Chest: No significant findings. URINARY: Right Kidney: No hydronephrosis. Nonobstructing right kidney stone measuring 0.4 cm. Small renal cysts. Some of the cysts demonstrate intermediate density and most consistent with complicated cysts. Right Ureter: No significant hydroureter. Suspected mass at the right ureter at the pelvic brim measuring 2.4 cm, (4/71). This measures 42 Hounsfield units. Left Kidney: No hydronephrosis. The left renal pelvis is prominent with stranding. A few small hyperdense benign renal cysts. Mid left kidney exophytic cyst measuring 1.6 cm. Most consistent with a complicated cyst. Nonobstructing kidney stone measuring 0.5 cm. Left Ureter: No hydroureter. Bladder: Normal wall thickness. No stones. ABDOMEN: Liver: No contour-deforming solid mass. Small cysts. Gallbladder: No radiopaque gallstones or wall thickening. Biliary ducts: No biliary dilation. Pancreas: No ductal dilation. Findings of chronic calcific pancreatitis. Spleen: Size is within normal limits. Adrenal Glands: No adrenal nodules. Stomach and Bowel: Normal colonic caliber, without significant wall thickening. Diverticulosis. Normal appendix. Peritoneum: No abnormal intraperitoneal fluid. No free air. Ventral Wall: No hernia. Ventral abdominal wall scar. Abdominal Nodes: Small upper presacral lymph node measuring 0.8 cm, (2/103). Vessels: Aorta and inferior vena cava are normal in size. PELVIS: Pelvic Organs: Prostatomegaly. Pelvic Nodes: Unremarkable. Miscellaneous: Fat containing left inguinal hernia. Bones: No suspicious osseous lesion. Multilevel DDD. IMPRESSION: 1. No obstructing kidney stones. No significant hydronephrosis. 2. Abnormal thickening or stranding near the left renal pelvis is again seen. This could be related to infectious/inflammatory process. Infiltrating neoplasm such as lymphoma is also a consideration. 3. Right lower ureteral mass measuring 2.4 cm. Suspicious for transitional cell carcinoma. -Recommend CT IVP for further evaluation. 4. Small nonobstructing kidney stones bilaterally. 5. Small bilateral complicated renal cysts. These will also be better characterized on CT with contrast. Dictated by: Diego Veras M.D. on 12/18/2024 at 16:57 Approved by: Diego Veras M.D. on 12/18/2024 at 17:20
== END ==
LOC: CT 15:15
PROVIDERS: PCP Physician Assistant; Referring Provider Urology; Visit Provider Urology
DX: N20.0 Calculus of kidney (principal); N28.1 Cyst of kidney, acquired; N28.9 Disorder of kidney and ureter, unspecified; K76.89 Other specified diseases of liver; N40.0 Benign prostatic hyperplasia without lower urinary tract symptoms; K40.90 Unilateral inguinal hernia, without obstruction or gangrene, not specified as recurrent; M54.50 Low back pain, unspecified; Z87.442 Personal history of urinary calculi
CPT/HCPCS: 74176

== ENCOUNTER → 2024-12-19 12:56 | Outpatient (CLI) | payer MEDICARE, OTHER, SELFPAY ==
[2023-12-01 12:32] VITALS: BMI 33.2
[2024-12-19 13:49] LABS: Estimated Glomerular Filt Rate > 60 mL/min (>60)
--- NOTE | 2024-12-19 14:00 | DI.CT.S_ITS ---
PROCEDURE: CT ABDOMEN PELVIS WO/W CON INDICATIONS: Left flank pain left and right ureteral abnormality TECHNIQUE: Optional 5 mm thick noncontrast images acquired from the diaphragm to the symphysis pubis. After the administration of intravenous contrast, 5 mm thick images acquired from the diaphragm to the symphysis pubis after a 10-minute delay. 2 mm thick coronal and sagittal reformats were then performed of the kidneys and ureters. For radiation dose reduction, the following was used: automated exposure control, adjustment of mA and/or kV according to patient size. COMPARISON: [facility], CT, CT IVP A/P W/WO, 03/27/2024, 11:29. FINDINGS: Image quality: Diagnostic. Kidneys and Ureters: Definite abnormal appearance of the left renal pelvis and proximal ureter with abnormal thickening extending into the peripelvic and periureteral fat. The process appears to potentially extend further down the ureter than previously. A previous left renal pelvic stone, which measured 12 x 8 mm, is no longer present. There is a nonobstructing left lower pole stone. There is definite interval increase in the size of a mass filling defect in the distal right ureter. On previous image 24 of series 11 it measured 0.8 cm. It is now a significantly larger oval mass, measuring 1.9 x 2.5 cm on current image 119 of series 4. Bladder: Bladder wall thickness is normal. No calcified bladder stones. OTHER: Lower chest: Unremarkable. Liver: No solid mass. Gallbladder: No radiopaque gallstones or wall thickening. Biliary ducts: Chronically prominent distal ureter and central intrahepatic ducts. Pancreas: No ductal dilation. Pancreatic calcifications consistent with chronic pancreatitis. Spleen: Size is within normal limits. Adrenal Glands: No adrenal nodules. Stomach and Bowel: Normal colonic caliber, without significant wall thickening. Extensive diffuse diverticulosis without evidence of acute diverticulitis. Peritoneum: No abnormal intraperitoneal fluid. No free air. Ventral Wall: No hernia. Abdominal Nodes: No retroperitoneal or mesenteric adenopathy by size criteria. Vessels: Aorta and inferior vena cava are normal in size. PELVIS: Pelvic Organs: Prostatomegaly.. Pelvic Nodes: No enlarged lymph nodes. Miscellaneous: Left inguinal hernia. Bones: No aggressive osseous abnormality. Lumbar degenerative change. Canal stenosis at L4-L5. IMPRESSION: 1. Abnormal appearance of left renal pelvis and proximal left ureter has progressed with abnormal thickening in the peripelvic and periureteral fat, which appears to extend more inferiorly in the periureteral fat. Malignancy is part of the differential, including transitional cell carcinoma. 2. Significant interval increase in the size of a soft tissue mass in the right ureter, now oval in appearance, expanding the ureter, likely representing a growing transitional cell carcinoma. 3. Nonobstructing left renal stone. Dictated by: Chau Etienne M.D. on 12/19/2024 at 17:11 Approved by: Chau Etienne M.D. on 12/19/2024 at 17:28
== END ==
PROVIDERS: PCP Physician Assistant; Referring Provider Urology; Visit Provider Urology
DX: N20.0 Calculus of kidney (principal); N28.9 Disorder of kidney and ureter, unspecified; K86.89 Other specified diseases of pancreas; K57.90 Diverticulosis of intestine, part unspecified, without perforation or abscess without bleeding; K40.90 Unilateral inguinal hernia, without obstruction or gangrene, not specified as recurrent; R10.9 Unspecified abdominal pain; R93.41 Abnormal radiologic findings on diagnostic imaging of renal pelvis, ureter, or bladder; R31.21 Asymptomatic microscopic hematuria; M48.061 Spinal stenosis, lumbar region without neurogenic claudication; M47.816 Spondylosis without myelopathy or radiculopathy, lumbar region; N40.0 Benign prostatic hyperplasia without lower urinary tract symptoms
CPT/HCPCS: 36415; 74178; 82565; Q9967

== ENCOUNTER 2024-12-26 13:09 | Day surgery (SDC) | payer MEDICARE, OTHER, SELFPAY ==
[2023-12-01 12:32] VITALS: BMI 33.2
[2024-12-25 08:31] VITALS: BMI 32.7
[2024-12-26] VITALS (7 sets, daily range): BP systolic 116–168; BP diastolic 64–93; PULSE 55–70; RESP 12–16; TEMP 36.2–36.3; O2SAT 92–98; BMI 32.7
--- NOTE | 2024-12-26 | DI.RAD.S_ITS ---
PROCEDURE: [place] PYELOGRAM RETROGRADE COMPARISON: None. INDICATIONS: RIGHT STENT PLACEMENT FINDINGS/IMPRESSION: Fluoroscopic guidance utilized for a left-sided nephroureteral stent placement. Dictated by: Sree Camarena M.D. on 12/26/2024 at 20:13 Approved by: Sree Camarena M.D. on 12/26/2024 at 20:13
[2024-12-26] MEDS: LACTATED RINGERS 1,000 ML 21 ML IV ×2 (13:39→16:25)
--- NOTE | 2024-12-26 14:57 | PM.PREOP ---
Pre-operative Note COVID-19 COVID-19 status: Not tested Interval Note History & Physical reviewed/Exam performed by Physician: Yes Changes to H&P: No
[2024-12-26] MEDS: CEFAZOLIN 2 GM/100 ML PREMIX 100 ML IV (15:15)
--- NOTE | 2024-12-26 15:29 | SUR.OPER ---
Lithotomy on padded OR bed, head on pillow, arms secured on padded arm boards at <90 degrees abduction. Legs secured in padded yellow fins stirrups.
[2024-12-26] MEDS: iopamidoL 30 ML VIAL INJ (15:39)
[2024-12-26] MEDS: ACETAMINOPHEN IV 1,000 MG/100 ML VIAL 400 MG IV (15:55)
--- NOTE | 2024-12-26 16:21 | P.OP_ITS ---
Operative Date/Time/Diagnoses Date of procedure: 12/26/24 Time of procedure: 16:21 Pre-op diagnosis: Right distal ureteral mass and question of left proximal ureteral mass Post-op diagnosis: same Procedure & Clinicians Procedure: Cystoscopy bilateral retrograde pyelogram, right ureteroscopy and right ureteral stent placement. Same procedure as scheduled: Yes Indications: This 74-year-old male presented with complaint of left flank pain. Patient had a history of left-sided stone and there was concerned that there was residual fragment or a new stone attempting to pass. Imaging was obtained and there appeared to be no stone but there was what appeared to be in the right distal ureter a new mass. Contrast study was obtained and confirmed that there was a mass there and then some irregularity in the upper ureter that was felt potentially to be inflammatory and post stone treatment changes and or malignancy. Therefore the patient was counseled for cystoscopy bilateral retrograde pyelogram possible bilateral ureteroscopy with potential for biopsies and other maneuvers to determine the etiology of the radiographic findings. Surgeon: Sukhwinder Tello Click Yes if Unassisted: Yes Anesthesia Type: General Operative Notes Findings: At cystoscopy urethral meatus is normal urethra is normal along its strength the prostate shows moderate approaching severe obstructive character with an el evated bladder neck and minimal bulging into the bladder. The bladder mucosa itself was normal there was a small stone fragment in the floor of the bladder. Ureteral orifices in normal position with clear efflux. At retrograde pyelogram on the left side the entirety of the ureter appeared smooth without irregularity no moth-eaten or ret bitten appearance the renal pelvis appeared normal and also smooth without changes. There did not to be appear to be significant external compression and again the entire course of the ureter was smooth and without abnormality that would indicate malignancy or abnormality therefore ureteroscopy was not performed at also was followed per drainage and it drained quickly and appropriately. On the right side at retrograde pyelogram there was in the distal ureter a filling defect/mass with a goblet sign could not get contrast past the mass. At ureteroscopy this was clearly a papillary transitional cell pictures were taken the quality is marginal but does show the papillary nature of the lesion. It was obstructing and again I was not able to get contrast past but I was able to manipulate a wire past the mass and into the upper ureter/renal pelvis and due to the occlusion I elected to place a stent. This was a 7 [place] by multi length stent with no string. Closure Type: not applicable Specimen(s): none sent Prosthetic devices, grafts, tissues, transplants, or devices: Seven [place] by multi length stent right ureter no string Estimated Blood Loss (mL): 5 Procedure in detail: Procedure in detail: After informed consent was obtained, the patient was identified brought the operating room placed in a supine position on table where anesthesia was induced and maintained. Showing an adequate level of anesthesia the patient was transitioned to the lithotomy position where he was prepped and draped in a sterile fashion. After ensuring an adequate level of anesthesia, time-out, sterile prepping and draping and administration of antibiotics a 22 [place] cystoscope was passed through the urethral prostate and into the bladder under direct vision cystoscopy was then performed. With these findings in hand a cone-tip catheter was impacted in the left ureteral orifice in the collecting system filled with contrast and this was visualized and documented by fluoroscopy. The cone-tipped catheter was then backed out and the collecting system observed for drainage. The right ureteral orifice was then again identified and the cone-tip catheter impacted in the right ureteral orifice and under fluoroscopic visualization the ureter was filled with contrast. I could not get contrast to go past the mass which appeared to be perhaps a cm to a cm and a half or more in diameter and was obstructing the ureter. At this point I attempted to pass a wire past the mass and it would not go and so a wire was placed up to the mass in the distal ureter and I attempted to under direct visualization pass a semi-rigid ureteral scope. This would not get past the orifice. I then went to a flexible scope and again could not get past the orifice so the scope was backed out the orifice dilated with a dual-lumen catheter I once again tried to pass the flexible scope and it would not go so I placed a 10 [place] ureteral access sheath just proximal to the mass and was able to pass the scope up to the mass and visualize it. I was then able to manipulate a hyper guidewire pass the mass and up into the upper collecting system under direct vision and fluoroscopic guidance. While at the mass no varus pictures were taken. Including 1 with a wire. With the wire in place the scope was backed out and the guidewire backloaded through the cystoscope cystoscope was inserted in the stent passed over the wire up into the collecting system where it was position in the renal pelvis under fluoroscopic visualization in the bladder under direct vision. With the stent in good position the wire was removed followed by the nylon harness. This was left in good position. As the procedure pre proceeded periodic imaging of the left side was done as noted above and it drained completely. So with the stent in place the bladder drained the scopes removed the patient was awakened transferred to the postanesthesia care unit having tolerated the procedure well patient to follow-up in my office after recovery. There were no complications Complications: none Post-operative Condition: stable Disposition: PACU Plan for aftercare: Patient will follow-up in my office he will be called for a follow-up appointment.
== END 2024-12-26 17:20 | disposition home or self-care (01) ==
PROVIDERS: PCP Physician Assistant; Referring Provider Urology; Visit Provider Urology
PROC: (CPT 52332; principal; 2024-12-26 14:45)
DX: R93.41 Abnormal radiologic findings on diagnostic imaging of renal pelvis, ureter, or bladder (principal); N21.0 Calculus in bladder; N13.5 Crossing vessel and stricture of ureter without hydronephrosis
CPT/HCPCS: 52332; 52351; 74420; C1771; C2617; J0131; J0690; J1100; J2405; J2704; J3010; Q9967

== ENCOUNTER → 2025-01-08 15:20 | Outpatient (CLI) | payer MEDICARE, OTHER, SELFPAY ==
[2023-12-01 12:32] VITALS: BMI 33.2
== END ==
PROVIDERS: PCP Physician Assistant; Visit Provider Urology
DX: M54.50 Low back pain, unspecified (principal); Z87.442 Personal history of urinary calculi
CPT/HCPCS: 87086; 99214

== ENCOUNTER 2025-01-12 07:57 | Day surgery (SDC) | payer MEDICARE, OTHER, SELFPAY ==
[2023-12-01 12:32] VITALS: BMI 33.2
[2025-01-09 10:35] VITALS: BMI 32.7
[2025-01-12] VITALS (7 sets, daily range): BP systolic 123–161; BP diastolic 74–90; PULSE 55–67; RESP 10–18; TEMP 36.1–36.6; O2SAT 94–98; BMI 33.8
--- NOTE | 2025-01-12 | DI.RAD.S_ITS ---
PROCEDURE: XR ABDOMEN 1V INDICATIONS: RT STENT PLACEMENT TECHNIQUE: 2 intra-operative images acquired by the Urology service. COMPARISON: [facility], [place], [place] PYELOGRAM RETROGRADE, 12/26/2024, 15:30. [facility], CT, CT ABDOMEN PELVIS WO/W CON, 12/19/2024, 13:56. FINDINGS: Labeled right ureteral vesicular stent. No contrast opacification. IMPRESSION: Labeled right ureterovesicular stent. Dictated by: Leanna Walter M.D. on 01/12/2025 at 12:56 Approved by: Leanna Walter M.D. on 01/12/2025 at 12:59
--- NOTE | 2025-01-12 | PATH_ITS ---
[facility] Accession Number: [id number] No. of containers..01 Tissue . 01 Material submitted: . urethra - RIGHT URETERAL MASS . 01 Diagnosis: RIGHT URETERAL MASS: Papillary urothelial carcinoma, favor high grade. No invasive tumor identified, however, the biopsy is predominantly superficial. [facility] 01/18/2025 1227 Local . 01 Comment: This case was also reviewed by Dr. Sharonda Nelson (Julie), who agrees with the interpretation. . 01 Electronically signed: . Elinor Gutierrez MD, Pathologist NPI- [id number] . 01 Gross description: . Received in formalin with two identifiers and R ureteral mass biopsy, are multiple dubois soft tissue fragments aggregating to 1.1 x 0.6 x 0.1 cm. Filtered and submitted entirely in A1. ([id number]) /MRV 01/13/2025 1903 Local . 01 Pathologist provided ICD-10: N36.9 . 01 CPT . 478960 Specimen Comment: A courtesy copy of this report has been sent to [phone] Performed at: [address] [facility] [id number] MD Michael Dominguez MD Phone: [phone]
[2025-01-12] MEDS: LACTATED RINGERS 1,000 ML 42 ML IV (08:47)
[2025-01-12] MEDS: ACETAMINOPHEN 325 MG TABLET 975 MG PO (08:49)
--- NOTE | 2025-01-12 09:36 | PM.PREOP ---
Pre-operative Note COVID-19 COVID-19 status: Not tested Interval Note History & Physical reviewed/Exam performed by Physician: Yes Changes to H&P: No
[2025-01-12] MEDS: CEFAZOLIN 2 GM/100 ML PREMIX 100 ML IV (09:45)
--- NOTE | 2025-01-12 10:01 | SUR.OPER ---
Lithotomy on padded OR bed, head on pillow, arms secured on padded arm boards at <90 degrees abduction. Legs secured in padded yellow fins stirrups.
--- NOTE | 2025-01-12 10:38 | P.OP_ITS ---
Operative Date/Time/Diagnoses Date of procedure: 01/12/25 Time of procedure: 10:38 Pre-op diagnosis: Right ureteral mass Post-op diagnosis: same Procedure & Clinicians Procedure: Right ureteroscopy, biopsy of right ureteral mass, stent removal, stent placement, fluoroscopy Same procedure as scheduled: Yes Indications: This 74-year-old male with a known right ureteral mass was in the operating room previously for his right ureteral mass and unfortunately because of the ureteral anatomy were unable to biopsy the mass. He had a stent placed and time has been allowed to pass and this should create favorable anatomy comes at this time for biopsy of the right ureteral mass which looks very much like a urothelial carcinoma we are biopsied determine if it is low-grade high-grade or other. Surgeon: Sukhwinder Tello Click Yes if Unassisted: Yes Anesthesia Type: General Operative Notes Findings: That is cystoscopy urethral meatus is normal urethra is normal along its length sphincter as well coapted and the prostate exhibits moderate to severe obstructive character. In the right ureteral orifice is the stent. The left ureteral orifices normal position with clear efflux. There is severe tra beculation cellules in the bladder the mucosa is otherwise normal. At ureteroscopy the masses noted in the same position in the distal 3rd of the ureter the ureter is dilated and now straightened having had the stent in place. The mass has a papillary appearance with some adherent clot and is biopsied with the ?bigopsy biopsy forceps? multiple samples were taken. The 7 Kinyarwanda stent was removed and a new 1 placed left in good position without a string. There were no other abnormalities. Closure Type: not applicable Specimen(s): other (Right ureteral mass biopsies) Prosthetic devices, grafts, tissues, transplants, or devices: 7 Kinyarwanda by multi length ureteral stent right collecting system no stream Estimated Blood Loss (mL): 5 Procedure in detail: Procedure in detail: After informed consent was obtained, the patient was identified brought to the operating room placed in a supine position on the table. Once there anesthesia was induced and maintained. Ensuring an adequate level of anesthesia patient was transition to the lithotomy position where he was prepped and draped in a sterile fashion. After prepping, draping, ensuring an adequate level of anesthesia, antibiotics and time-out a 22 Kinyarwanda cystoscope was passed through the urethra prostate and in the bladder under direct vision once in the bladder and attempt was made to pass a guidewire up along the stent it would not pass therefore the grasping forceps was inserted the end of the stent was grasped and under fluoroscopic and direct visualization the end of the stent was brought out to the meatus. Once at the meatus the hybrid guidewire was passed up and into the collecting system under fluoroscopic visualization. Ensuring that the distal end was in the kidney the stent was then backed out. Then using the dual-lumen catheter a 2nd wire was vast advanced up and into the collecting system. With these in place 1 was reserved as a safety wire and the other was used as a working wire. Using the working wire a ureteral access sheath was passed up to the level of the tumor. The wire and inner trocar were removed leaving the sheath in place. With the bigopsy biopsy forceps backloaded through the rigid ureteral scope it was advanced through the ureteral access sheath and on multiple passes multiple samples taken from the tumor. With this accomplished the scope was once again backed out. The access sheath was removed. The safety wire was then backloaded through the cystoscope which was then inserted through the urethra prostate and into the bladder. The fresh stent new stent was passed over the wire position of the renal pelvis under fluoroscopic visualization of the bladder under direct vision the nylon harness was removed in the stent was left in good position without a wire again images were taken via fluoroscopy to ensure that the distal end of the stent was in good position and then under direct vision it was confirmed to be in good position within the bladder the bladder was drained the scope was removed the patient was awakened having tolerated the procedure well to be transferred to the postanesthesia care unit for recovery there were no complications. Complications: none Post-operative Condition: stable Disposition: PACU Plan for aftercare: Patient to be discharged to home after recovery and to follow up my office in approximately 10 days. The patient we will be called with the pathology report soon as it returns.
[2025-01-12] MEDS: OXYBUTYNIN 5 MG TABLET PO (10:55)
[2025-01-12] MEDS: PHENAZOPYRIDINE 100 MG TABLET 200 MG PO (10:55)
== END 2025-01-12 11:30 | disposition home or self-care (01) ==
PROVIDERS: PCP Physician Assistant; Referring Provider Urology; Visit Provider Urology
PROC: (CPT 52354; principal; 2025-01-12 09:30)
DX: C66.1 Malignant neoplasm of right ureter (principal); N40.1 Benign prostatic hyperplasia with lower urinary tract symptoms; Z80.42 Family history of malignant neoplasm of prostate; Z87.891 Personal history of nicotine dependence; Z87.442 Personal history of urinary calculi
CPT/HCPCS: 52354; 52332; 74018; 76000; C2617; J0690; J2405; J2704

== ENCOUNTER → 2025-01-23 16:09 | Outpatient (CLI) | payer MEDICARE, OTHER, SELFPAY ==
[2023-12-01 12:32] VITALS: BMI 33.2
== END ==
PROVIDERS: PCP Physician Assistant; Visit Provider Urology
DX: R34 Anuria and oliguria (principal); N28.9 Disorder of kidney and ureter, unspecified; Z87.442 Personal history of urinary calculi
CPT/HCPCS: 51798; 87086; 99214

== ENCOUNTER → 2025-02-26 11:54 | Outpatient (CLI) | payer MEDICARE, OTHER, SELFPAY ==
[2023-12-01 12:32] VITALS: BMI 33.2
== END ==
PROVIDERS: PCP Physician Assistant; Visit Provider Urology
DX: R39.9 Unspecified symptoms and signs involving the genitourinary system (principal)
CPT/HCPCS: 87086

== ENCOUNTER → 2025-08-23 08:18 | Outpatient (CLI) | payer MEDICARE, OTHER, SELFPAY ==
[2023-12-01 12:32] VITALS: BMI 33.2
--- NOTE | 2025-08-23 08:20 | DI.CT.S_ITS ---
PROCEDURE: CT IVP A/P W/WO INDICATIONS: Malignant neoplasm of right ureter TECHNIQUE: Optional 5 mm thick noncontrast images acquired from the diaphragm to the symphysis pubis. After the administration of intravenous contrast, 5 mm thick images acquired from the diaphragm to the symphysis pubis after a 10-minute delay. 2 mm thick coronal and sagittal reformats were then performed of the kidneys and ureters. For radiation dose reduction, the following was used: automated exposure control, adjustment of mA and/or kV according to patient size. COMPARISON: CT chest abdomen pelvis 05/01/2025. FINDINGS: Image quality: Diagnostic. Kidneys and Ureters: Both kidneys are normal in size, without hydronephrosis. Bilateral renal pelvis. Status post partial resection of the right ureter with reimplantation. Previously seen urolithiasis in the mid right ureter is no longer present. There is opacification of the right ureter to the midportion. The distal aspect of the right ureter is not opacified even on delayed phase imaging. On the left, there is a nonobstructing 6 mm calculus in the inferior pole (HU 999). No hydroureteronephrosis. There is persistent urothelial thickening in the left renal pelvis. No ureteral lesion visualized. Previously seen or nephrolithiasis. No perinephric fat stranding. There is normal bilateral renal enhancement. Renal calyces appear normal in morphology when filled with contrast. Opacified portions of both ureters demonstrate normal caliber Bladder: Bladder wall thickness is normal. No calcified bladder stones. OTHER: Lower chest: Unremarkable. Liver: No solid mass. Stable subcentimeter hypodensities are too small to characterize by CT. Gallbladder: No radiopaque gallstones or wall thickening. Biliary ducts: No biliary dilation. Pancreas: No ductal dilation. Spleen: Size is within normal limits. Adrenal Glands: No adrenal nodules. Stomach and Bowel: Normal colonic caliber, without significant wall thickening. Normal caliber appendix. Peritoneum: No abnormal intraperitoneal fluid. No free air. Ventral Wall: No hernia. Abdominal Nodes: No retroperitoneal or mesenteric adenopathy by size criteria. Vessels: Aorta and inferior vena cava are normal in size. Mild scattered aorto bi iliac atherosclerotic calcifications. PELVIS: Pelvic Organs: Prostatomegaly. Pelvic Nodes: No enlarged lymph nodes. Miscellaneous: No inguinal hernias are seen. Bones: No aggressive osseous abnormality. IMPRESSION: 1. Status post partial resection of the right ureter with reimplantation. No urolithiasis, however there is non-opacification of the distal portion of the right ureter and an obstructing lesion cannot be excluded. 2. Nonobstructing 6 mm left inferior pole calculus without hydronephrosis. Similar persistent urothelial thickening of the left renal pelvis without focal lesions seen. 3. No new adenopathy or evidence of distant metastases. Approved by: Emeli Wilks M.D.,Ph.D. on 08/24/2025 at 20:54
[2025-08-23 08:53] LABS: Estimated Glomerular Filt Rate > 60 mL/min (>60)
== END ==
LOC: CT 08:19
PROVIDERS: PCP Physician Assistant; Referring Provider Urology; Visit Provider Urology
DX: C66.1 Malignant neoplasm of right ureter (principal); N20.0 Calculus of kidney; N40.0 Benign prostatic hyperplasia without lower urinary tract symptoms
CPT/HCPCS: 36415; 74178; 82565; Q9967